=== PATIENT | male | born 1940 | race Caucasian/White ===

== ENCOUNTER 2016-12-10 17:23 | Emergency (ER) | payer MEDICARE, MEDICAID ==
[2016-07-03 11:43] VITALS: BMI 21.0
[~2016-12-10 17:23] MED LIST: ALBUTEROL2.5 MG/3 M INH; ASPIRIN81 MG PO; ATIVAN0.5 MG PO; AUGMENTIN 875-11 TAB PO; BENZONATATE200 MG PO; BROVANA15 MCG/2 M INH; CELEXA20 MG PO; HYDROCHLOROTHIA25 MG PO; HYDROCODONE-APA1 TAB PO; IBUPROFEN400 MG PO; IPRAT-ALBUT 0.5-3 ML UPD; LEVAQUIN500 MG PO; LIPITOR40 MG PO; MOBIC7.5 MG PO; MUCINEX DM ER1 EAC1 PO; NEURONTIN 400400 MG PO; NICODERM C1 PATCH .1 TRANSDERM; PHENERGAN25 M1 PO; RESTORIL15 MG PO; SINGULAIR10 MG PO; STERAPRED 5MG 125 MG PO; SYMBICORT 16010.2 GM INH; TUSSIONEX PENN473 ML PO; ULTRAM50 MG PO; ZANTAC150 MG PO
[2016-12-10 18:38] LABS: BASOPHILS 0.3 % (0.0-2.0); EOSINOPHILS 3.8 % (0-7); HEMATOCRIT 42.4 % (42.0-54.0); HEMOGLOBIN 13.9 g/dL (13.5-17.5); IMMATURE GRANULOCYTES 0.3 % (0-5); LYMPHOCYTES 22.1 % (15-50); MCH 31.4 pg (26.0-34.0); MCHC 32.8 g/dL (31.0-37.0); MCV 95.7 fL (80.0-100.0); MEAN PLATELET VOLUME 9.9 fL (7.4-10.4); MONOCYTES 5.8 % (2-11); NEUTROPHILS 67.7 % (40-80); PLATELET COUNT 149 10x3/uL (130-400); RBC 4.43 10x6/uL (4.20-6.10); RDW 14.8 % (11.5-14.5); WBC 8.7 10x3/uL (4.8-10.8)
[2016-12-10 18:42] LABS: APPEARANCE CLEAR (CLEAR); BILIRUBIN NEGATIVE (NEGATIVE); COLOR YELLOW (YELLOW); GLUCOSE NEGATIVE (NEGATIVE); KETONE NEGATIVE (NEGATIVE); LEUKOCYTE ESTERASE NEGATIVE (NEGATIVE); NITRITE NEGATIVE (NEGATIVE); PROTEIN TRACE mg/dL (NEGATIVE); UROBILINOGEN NORMAL (NORMAL)
[2016-12-10 18:44] LABS: UDS - AMPHET NEGATIVE QUAL (NEGATIVE); UDS - BARB NEGATIVE QUAL (NEGATIVE); UDS - BENZO NEGATIVE QUAL (NEGATIVE); UDS - COCAINE NEGATIVE QUAL (NEGATIVE); UDS - METH NEGATIVE QUAL (NEGATIVE); UDS - OPIATE POSITIVE QUAL (NEGATIVE); UDS - PCP NEGATIVE QUAL (NEGATIVE); UDS - THC NEGATIVE QUAL (NEGATIVE)
[2016-12-10 18:59] LABS: ALBUMIN 3.8 g/dL (3.4-5.0); ANION GAP 13.7 mmol/L (8-16); BILIRUBIN - TOTAL 0.28 mg/dL (0.2-1.3); CALCIUM 8.8 mg/dL (8.5-10.1); CARBON DIOXIDE 26.3 mmol/L (21.0-32.0); CREATININE - SERUM 1.8 mg/dL (0.6-1.3); PROTEIN - SERUM 6.5 g/dL (6.4-8.2)
== END 2016-12-10 20:45 | disposition home or self-care (01) ==
LOC: D.ER 17:23
PROVIDERS: Family Medicine
DX: T14.91 Suicide attempt (principal); X78.1XXA Intentional self-harm by knife, initial encounter; Y93.89 Activity, other specified; Y92.019 Unspecified place in single-family (private) house as the place of occurrence of the external cause; R45.851 Suicidal ideations; J44.9 Chronic obstructive pulmonary disease, unspecified; I95.9 Hypotension, unspecified; F17.200 Nicotine dependence, unspecified, uncomplicated

== ENCOUNTER 2017-01-28 20:56 | Emergency (ER) | payer MEDICARE, MEDICAID ==
[2016-07-03 11:43] VITALS: BMI 21.0
[2017-01-28 21:48] LABS: BASOPHILS 0.2 % (0.0-2.0); EOSINOPHILS 1.3 % (0-7); HEMATOCRIT 37.9 % (42.0-54.0); HEMOGLOBIN 12.4 g/dL (13.5-17.5); IMMATURE GRANULOCYTES 0.3 % (0-5); LYMPHOCYTES 12.6 % (15-50); MCH 31.4 pg (26.0-34.0); MCHC 32.7 g/dL (31.0-37.0); MCV 95.9 fL (80.0-100.0); MEAN PLATELET VOLUME 9.1 fL (7.4-10.4); MONOCYTES 8.9 % (2-11); NEUTROPHILS 76.7 % (40-80); PLATELET COUNT 159 10x3/uL (130-400); RBC 3.95 10x6/uL (4.20-6.10); RDW 14.5 % (11.5-14.5); WBC 14.1 10x3/uL (4.8-10.8)
[2017-01-28 22:07] LABS: ALBUMIN 3.1 g/dL (3.4-5.0); ANION GAP 14.2 mmol/L (8-16); BILIRUBIN - TOTAL 0.35 mg/dL (0.2-1.3); CALCIUM 8.9 mg/dL (8.5-10.1); CARBON DIOXIDE 25.8 mmol/L (21.0-32.0); CREATININE - SERUM 2.1 mg/dL (0.6-1.3); PROTEIN - SERUM 7.2 g/dL (6.4-8.2)
[2017-01-28 22:52] LABS: APPEARANCE CLEAR (CLEAR); BILIRUBIN NEGATIVE (NEGATIVE); COLOR YELLOW (YELLOW); GLUCOSE NEGATIVE (NEGATIVE); KETONE NEGATIVE (NEGATIVE); LEUKOCYTE ESTERASE NEGATIVE (NEGATIVE); NITRITE NEGATIVE (NEGATIVE); PROTEIN NEGATIVE (NEGATIVE); SPECIFIC GRAVITY 1.015 (1.005-1.020); UROBILINOGEN NORMAL (NORMAL)
[2017-01-28 23:01] LABS: UDS - AMPHET NEGATIVE QUAL (NEGATIVE); UDS - BARB NEGATIVE QUAL (NEGATIVE); UDS - BENZO POSITIVE QUAL (NEGATIVE); UDS - COCAINE NEGATIVE QUAL (NEGATIVE); UDS - METH NEGATIVE QUAL (NEGATIVE); UDS - OPIATE POSITIVE QUAL (NEGATIVE); UDS - PCP NEGATIVE QUAL (NEGATIVE); UDS - THC NEGATIVE QUAL (NEGATIVE)
== END 2017-01-28 23:59 | disposition home or self-care (01) ==
LOC: D.ER 20:56
PROVIDERS: Emergency Medicine
DX: R41.82 Altered mental status, unspecified (principal); J96.90 Respiratory failure, unspecified, unspecified whether with hypoxia or hypercapnia; J44.9 Chronic obstructive pulmonary disease, unspecified; F17.200 Nicotine dependence, unspecified, uncomplicated

== ENCOUNTER 2017-02-08 07:13 | Inpatient (IN) | payer MEDICARE, MEDICAID ==
[2017-02-08] VITALS (11 sets, daily range): BP systolic 95–122; BP diastolic 58–67; Ht 190.5 cm; Wt 65.9 kg
[~2017-02-08] VITALS: Ht 190.5 cm; Wt 65.9 kg
--- NOTE | ~2017-02-08 | OP ---
PATIENT NAME: BEE GARNER MEDICAL RECORD: [id number] :40 LOCATION:D.MS [id number] ADMISSION DATE:02/08/17 SURGEON: HANDY MARTINEZ MD DATE OF OPERATION: 02/08/2017 PREOPERATIVE DIAGNOSIS: Left diabetic foot ulcer and osteomyelitis. POSTOPERATIVE DIAGNOSIS: Left diabetic foot ulcer and osteomyelitis. PROCEDURE PERFORMED: Left lower extremity below-knee amputation. SURGEON: Rickey Martinez MD. ANESTHESIA: General. He did have a block for postop pain. CONDITION: He tolerated the procedure well and was transferred to the recovery room in stable condition. INDICATIONS: This is a 76-year-old gentleman well known us. He has had significant problems with diabetic ulcers, foot ulcers in the recent past. He presented to the office yesterday with a very red and inflamed diabetic ulcer, likely with osteomyelitis as well. This had a very foul smell extended up to his ankle. It did not look like there was any good chance that this was going to heal. He has had another nonhealing ulcer on his right foot that has had multiple things done without resolution. We discussed the options and felt it was best to just go ahead and proceed with a BKA. We discussed risks, benefits, and alternatives. He understood and wished to proceed. OPERATIVE REPORT: The patient was taken to the operating room, placed in supine position. General anesthesia was obtained. He did get a block in the preop holding area. In the operating room, his left leg was confirmed to be the correct leg. He was prepped and draped in the normal fashion. Procedure was begun by marking out where I was going to cut the bone, about 4 fingerbreadths below the tibial tubercle then the skin, marking was made. I then went ahead and made the skin cuts for posterior flap. After this was accomplished, I then proceeded to cut the skin down to the bone, got back behind the bone, cut the bone, cut the fibula about 2 cm shorter than the tibia. I then identified the neurovascular bundles. These were clamped off and cut. The leg was removed. I then tied the vessels with a ties, then I proceeded to cut the nerves back specifically the posterior ____ nerve. I then proceeded to irrigate. I then did a [id number] closure followed by a 2-0 Vicryl followed by renetta. He tolerated this well, was awakened and transferred to recovery room in stable condition, having tolerated the procedure well. TRANSINT:[id number] Voice Confirmation ID: [id number] DOCUMENT ID: [id number] HANDY MARTINEZ MD CC: [id number] DICTATION DATE: 02/08/171101 REMOTE RECRUITER: 02/08/172018 ADM IN [place] [address] [place] [address]
[2017-02-08 08:21] LABS: HEMATOCRIT 39.7 % (42.0-54.0); HEMOGLOBIN 12.9 g/dL (13.5-17.5); MCH 31.1 pg (26.0-34.0); MCHC 32.5 g/dL (31.0-37.0); MCV 95.7 fL (80.0-100.0); MEAN PLATELET VOLUME 9.2 fL (7.4-10.4); RBC 4.15 10x6/uL (4.20-6.10); RDW 13.9 % (11.5-14.5); WBC 12.5 10x3/uL (4.8-10.8)
[2017-02-08 08:42] LABS: CALCIUM 9.4 mg/dL (8.5-10.1); CARBON DIOXIDE 27.2 mmol/L (21.0-32.0); CREATININE - SERUM 1.9 mg/dL (0.6-1.3); POTASSIUM - SERUM 4.2 mmol/L (3.5-5.1)
[2017-02-08] MEDS ORDERED: GLUCOTROL 5 MG T5 MG PO (08:44)
[2017-02-08] MEDS ORDERED: TEMAZEPAM30 MG PO (08:44)
[2017-02-08] MEDS ORDERED: ULTRAM50 MG PO (08:45)
[2017-02-08] MEDS ORDERED: ZOFRAN ODT4 MG/UDTAB PO (08:45)
--- NOTE | 2017-02-08 12:05 | NUR ---
RECEIVED TO ROOM 2204 VIA STRETCHER FROM PACU. A/O X3. NO C/O AT THIS TIME. DRESSING TO LEFT BKA DRY AND INTACT. DRESSING TO RIGHT TOES CHANGED. LARGE OPEN WOUND ON TOP OF GREAT TOE, WITHOUT DRAINAGE, SCABBED AREAS NOTED TO SECOND AND THIRD TOES. UNABLE TO PALPATE PEDAL PULSE BUT SKIN IS WARM AND DRY. VSS. DENIES NEEDS.
--- NOTE | 2017-02-08 14:00 | NUR ---
RESTING QUIETLY WITH EYES CLOSED. NO NEEDS NOTED. VSS. O2 DOWN TO 3L AND REMAINS AT 97%.
--- NOTE | 2017-02-08 16:00 | NUR ---
CONTINUES TO REST WITH EYES CLOSED. VSS. O2 DOWN TO 2L AND SATS AT 94%. WILL MONITOR.
--- NOTE | 2017-02-08 18:10 | NUR ---
ATE ALL OF SUPPER TRAY. STATED IT WAS VERY GOOD. REQUESTED AND GIVEN 2 HYDROCODONE PO FOR C/O LEFT BKA. WILL MONITOR.
--- NOTE | 2017-02-08 19:55 | NUR ---
PT RECEIVED LYING IN BED AAOX3. IV NOTED TO RIGHT FOREARM INFUSING 1/2 NS @ 75 CC/HR. PATENT. DRESSING CDI. PT RATES PAIN 9/10 AT THIS TIME. HEART RRR. SKIN TEAR NOTED TO LEFT ELBOW WITH DRESSING. CDI. LUNG SOUNDS CLEAR BILATERALLY. PT ON 2 L O2 VIA NC. BOWEL SOUNDS ACTIVE X4 QUADRENTS. ABDOMEN SOFT NON-DISTENDED. BKA TO LEFT EXTREMITY. DRESSING CDI. DRESSING NOTED TO RIGHT GREAT TOE. CDI. RIGHT PEDAL PULSE NON-PALPABALE. PT DENIES NEEDS AT THIS TIME. BED LOW. PHONE AND CALL LIGHT IN REACH. SRX2.
--- NOTE | 2017-02-08 21:53 | NUR ---
PM MEDS GIVEN AT THIS TIME. PT REQUESTS MEDICATION FOR PAIN 06/06 AT THIS TIME. DENIES OTHER NEEDS. BED LOW. PHONE AND CALL LIGHT IN REACH. SRX2.
--- NOTE | 2017-02-08 22:31 | NUR ---
ADMINISTERED NORCO PO PER ORDERS AT THIS TIME FOR PAIN PT RATES 06/06. PT DENIES OTHER NEEDS. BED LOW. PHONE AND CALL LIGHT IN REACH. SRX2.
--- NOTE | 2017-02-08 23:02 | NUR ---
PT VOIDED APPROX 250 CC LETICIA URINE IN URINAL AT THIS TIME. PT DENIES NEEDS. BED LOW. PHONE AND CALL LIGHT IN REACH. SRX2.
--- NOTE | 2017-02-08 23:22 | NUR ---
REASSESSED PTS PAIN AT THIS TIME. RATES PAIN 06/06. PT DENIES NEEDS. BED LOW. PHONE AND CALL LIGHT IN REACH. SRX2.
--- NOTE | 2017-02-09 01:18 | NUR ---
PT RESTING QUIETLY AT THIS TIME WITH EYES CLOSED. RESPIRATIONS EVEN, NON-LABORED. NO ACUTE DISTRESS NOTED AT THIS TIME. BED LOW. PHONE AND CALL LIGHT IN REACH. SRX2.
--- NOTE | 2017-02-09 02:43 | NUR ---
PT C/O PAIN 06/06 AT THIS TIME. ADMINISTERED NORCO PO PER ORDERS AT THIS TIME. PT DENIES OTHER NEEDS. BED LOW. PHONE AND CALL LIGHT IN REACH. SRX2.
--- NOTE | 2017-02-09 03:05 | NUR ---
REASSESSED PTS PAIN AT THIS TIME. RATES PAIN 06/06. PT DENIES NEEDS AT THIS TIME. BED LOW. PHONE AND CALL LIGHT IN REACH. SRX2.
--- NOTE | 2017-02-09 03:57 | NUR ---
PT RESTING QUIETLY IN BED AT THIS TIME. DENIES NEEDS. BED LOW. PHONE AND CALL LIGHT IN REACH. SRX2.
[2017-02-09 05:23] VITALS: BP 97/52
--- NOTE | 2017-02-09 06:41 | NUR ---
AM MEDS GIVEN AT THIS TIME. ADMINISTERED NORCO PO PER ORDERS AT THIS TIME FOR PAIN PT RATES 06/06. DENIES OTHER NEEDS. BED LOW. PHONE AND CALL LIGHT IN REACH. SRX2.
--- NOTE | 2017-02-09 07:20 | NUR ---
PT REC'D FROM [facility]. RESTING IN BED WATCHING TV. AAOX4. RATING CURRENT PAIN IN LLE 08/06. PT RECENTLY HAD PAIN MEDICATION, SO I EXPLAINED TO HIM THAT I WOULD GIVE IT AGAIN WHEN IT WAS SAFE TO. PT STATES HE UNDERSTANDS. DRESSING TO LLE CDI. DRESSING TO R FOOT HAS SOME OLD DRIED BLOOD ON GREAT TOE. WILL CHANGE. BED LOW, CALL LIGHT IN REACH, DENIES NEEDS. CPOC.
[2017-02-09 09:05] VITALS: BP 125/61
[2017-02-09] MEDS ORDERED: PERCOCET 10/3251 TA1 PO (09:21)
--- NOTE | 2017-02-09 11:30 | NUR ---
MORNING MEDS PASSED AT THIS TIME. PRN NORCO ADMINISTERED PER PT C/O 08/06 LLE PAIN. WILL REASSESS. SPOKE WITH MRS. VILLAGRAN, PT CAREGIVER AT HOME, AND PROVIDED UPDATE ON DC ORDERS AND CURRENT PT CONDITION. BED LOW, CALL LIGHT IN REACH, DENEIS NEEDS. CPOC.
--- NOTE | 2017-02-09 11:40 | NUR ---
PATIENT IN LOW BROWER POSITION. RESPIRATIONS EVEN AND UNLABORED. FAMILY AND NURSE AIDBORIS AT BEDSIDE. SIDE RAILS UP X2. BED IN LOW POSITION. CALL LIGHT IN REACH.
--- NOTE | 2017-02-09 16:32 | NUR ---
DC INSTRUCTIONS GONE OVER WITH PT AND CAREGIVER. IV TO R WRIST DC'D WITH CATH INTACT. DC PAPERS SENT WITH CAREGIVER. AMBULANCE CALLED FOR [facility]. BED LOW, CALL LIGHT IN REACH, DENIES NEEDS. AWAITING AMBULANCE ARRIVAL.
== END 2017-02-09 16:34 | disposition home health service (06) | DRG 41 ==
LOC: D.MS 07:13 → D.SDCHOLD 07:13 → D.MS 11:19
PROVIDERS: Anesthesiology; ADMIT Orthopaedic Surgery Sports Medicine
PROC: 0Y6D0Z2 Detachment at Left Upper Leg, Mid, Open Approach (ICD-10-PCS; principal; 2017-02-08 08:00)
DX: E11.40 Type 2 diabetes mellitus with diabetic neuropathy, unspecified (principal); M86.9 Osteomyelitis, unspecified; F17.203 Nicotine dependence unspecified, with withdrawal; E11.621 Type 2 diabetes mellitus with foot ulcer; L97.529 Non-pressure chronic ulcer of other part of left foot with unspecified severity; E11.69 Type 2 diabetes mellitus with other specified complication; K21.9 Gastro-esophageal reflux disease without esophagitis; I10 Essential (primary) hypertension; J44.9 Chronic obstructive pulmonary disease, unspecified; M19.90 Unspecified osteoarthritis, unspecified site; Z79.84 Long term (current) use of oral hypoglycemic drugs

== ENCOUNTER 2018-02-03 10:14 | Emergency (ER) | payer MEDICARE, MEDICAID ==
[2017-02-08 12:07] VITALS: BMI 18.1
[~2018-02-03 10:14] MED LIST changes: +GLUCOTROL 5 MG T5 MG PO; +PERCOCET 10/3251 TA1 PO; +TEMAZEPAM30 MG PO; +ZOFRAN ODT4 MG/UDTAB PO
== END 2018-02-03 12:59 | disposition home or self-care (01) ==
LOC: D.ER 10:14
DX: R07.89 Other chest pain (principal); E11.9 Type 2 diabetes mellitus without complications; R22.41 Localized swelling, mass and lump, right lower limb; W20.8XXA Other cause of strike by thrown, projected or falling object, initial encounter; Y93.89 Activity, other specified; Y92.019 Unspecified place in single-family (private) house as the place of occurrence of the external cause; F17.200 Nicotine dependence, unspecified, uncomplicated

== ENCOUNTER 2018-05-01 12:30 | Observation (INO) | payer MEDICARE, MEDICAID ==
[~2018-05-01] VITALS: Ht 190.5 cm; Wt 70.0 kg
[2018-05-01 13:23] LABS: BASOPHILS 0.2 % (0-2); EOSINOPHILS 1.1 % (0-7); HEMATOCRIT 33.5 % (42.0-54.0); HEMOGLOBIN 10.8 g/dL (13.5-17.5); IMMATURE GRANULOCYTES 0.3 % (0-5); LYMPHOCYTES 6.8 % (15-50); MCH 31.3 pg (26.0-34.0); MCHC 32.2 g/dL (31.0-37.0); MCV 97.1 fL (80.0-100.0); MEAN PLATELET VOLUME 8.7 fL (7.4-10.4); MONOCYTES 7.3 % (2-11); NEUTROPHILS 84.3 % (40-80); RBC 3.45 10x6/uL (4.20-6.10); RDW 14.3 % (11.5-14.5); WBC 9.3 10x3/uL (4.8-10.8)
[2018-05-01 13:24] LABS: PLATELET COUNT 185 10x3/uL (130-400)
[2018-05-01 13:36] LABS: ALKALINE PHOSPHATASE 99 U/L (46-116); ALT (SGPT) 12 U/L (10-68); BILIRUBIN - TOTAL 0.49 mg/dL (0.2-1.3); CALC OSMOLALITY 280 mosm/kg (275-300); CALCIUM 9.1 mg/dL (8.5-10.1); CARBON DIOXIDE 25.1 mmol/L (21.0-32.0); CHLORIDE - SERUM 105 mmol/L (98-107); CREATININE - SERUM 2.3 mg/dL (0.6-1.3); GLUCOSE 92 mg/dL (74-106); POTASSIUM - SERUM 4.6 mmol/L (3.5-5.1); SODIUM 138 mmol/L (136-145); UREA NITROGEN 26 mg/dL (7-18); eGFR NON AFRICAN AMERICAN 29 mL/min (90-120)
[2018-05-01 13:51] LABS: CKMB 1.2 U/L (0.0-3.6); CREATINE KINASE 44 UL (21-232)
[2018-05-01 13:53] LABS: TROPONIN-I < 0.017 ng/mL (0.000-0.060)
[2018-05-01 14:00] VITALS: BP 131/60
[2018-05-01 14:04] LABS: APPEARANCE HAZY (CLEAR); BILIRUBIN NEGATIVE (NEGATIVE); COLOR YELLOW (YELLOW); GLUCOSE NEGATIVE (NEGATIVE); KETONE NEGATIVE (NEGATIVE); NITRITE POSITIVE (NEGATIVE); PROTEIN NEGATIVE (NEGATIVE); UROBILINOGEN NORMAL (NORMAL)
[2018-05-01 14:05] LABS: RED CELLS - URINE >50 /hpf (0-5); WHITE CELLS - URINE >50 /hpf (0-5)
[2018-05-01 14:06] LABS: BACTERIA MODERATE /hpf (NONE SEEN); EPITHELIAL CELLS 0-5 /hpf (0-5)
[2018-05-01 14:08] LABS: UDS - AMPHET NEGATIVE QUAL (NEGATIVE); UDS - BARB NEGATIVE QUAL (NEGATIVE); UDS - BENZO POSITIVE QUAL (NEGATIVE); UDS - COCAINE NEGATIVE QUAL (NEGATIVE); UDS - OPIATE POSITIVE QUAL (NEGATIVE); UDS - PCP NEGATIVE QUAL (NEGATIVE); UDS - THC NEGATIVE QUAL (NEGATIVE)
[2018-05-01 14:23] LABS: APTT 33.2 SECONDS (22.8-39.4)
[2018-05-01 14:28] LABS: INR 1.16 (0.85-1.17); PROTIME 14.4 SECONDS (11.6-15.0)
[2018-05-01 15:00] VITALS: BP 124/59
[2018-05-01 15:33] LABS: CREATINE KINASE 50 UL (21-232)
[2018-05-01 15:34] LABS: TROPONIN-I < 0.017 ng/mL (0.000-0.060)
[2018-05-01 17:49] VITALS: BP 126/61
[2018-05-01 18:00] VITALS: BP 129/57
[2018-05-01 22:29] LABS: CKMB 1.3 U/L (0.0-3.6); CREATINE KINASE 52 UL (21-232); TROPONIN-I < 0.017 ng/mL (0.000-0.060)
[2018-05-01 23:56] VITALS: Ht 190.5 cm; Wt 70.0 kg
[2018-05-02 01:00] VITALS: BP 122/65
[2018-05-02 05:59] VITALS: BP 140/63
[2018-05-02 06:13] LABS: CREATINE KINASE 52 UL (21-232)
[2018-05-02 06:20] LABS: TROPONIN-I < 0.017 ng/mL (0.000-0.060)
[2018-05-02 07:53] VITALS: BP 131/67
[2018-05-02] MEDS ORDERED: LEVAQUIN500 MG PO (10:58)
[2018-05-02 12:02] VITALS: BP 143/77
== END 2018-05-02 15:45 | disposition home health service (06) ==
LOC: D.ER 12:30 → D.EDHOLD 14:48 → OBSVTIME 14:48 → D.M2 14:48
PROVIDERS: Family Medicine
DX: S00.03XA Contusion of scalp, initial encounter (principal); W05.0XXA Fall from non-moving wheelchair, initial encounter; Y92.512 Supermarket, store or market as the place of occurrence of the external cause; R40.2363 Coma scale, best motor response, obeys commands, at hospital admission; N17.9 Acute kidney failure, unspecified; R40.2143 Coma scale, eyes open, spontaneous, at hospital admission; R40.2243 Coma scale, best verbal response, confused conversation, at hospital admission; M48.02 Spinal stenosis, cervical region; F17.290 Nicotine dependence, other tobacco product, uncomplicated; K21.9 Gastro-esophageal reflux disease without esophagitis; E11.9 Type 2 diabetes mellitus without complications; J44.9 Chronic obstructive pulmonary disease, unspecified; F32.9 Major depressive disorder, single episode, unspecified; I10 Essential (primary) hypertension; N39.0 Urinary tract infection, site not specified

== ENCOUNTER 2018-06-21 19:30 | Inpatient (IN) | payer MEDICARE, MEDICAID ==
[~2018-06-21] VITALS: Ht 190.5 cm; Wt 95.5 kg
[2018-06-21 20:15] LABS: BASOPHILS 0.2 % (0-2); EOSINOPHILS 3.1 % (0-7); HEMATOCRIT 40.4 % (42.0-54.0); HEMOGLOBIN 13.1 g/dL (13.5-17.5); IMMATURE GRANULOCYTES 0.2 % (0-5); LYMPHOCYTES 9.8 % (15-50); MCH 31.2 pg (26.0-34.0); MCHC 32.4 g/dL (31.0-37.0); MCV 96.2 fL (80.0-100.0); MEAN PLATELET VOLUME 8.9 fL (7.4-10.4); MONOCYTES 5.1 % (2-11); NEUTROPHILS 81.6 % (40-80); PLATELET COUNT 174 10x3/uL (130-400); RDW 13.9 % (11.5-14.5)
[2018-06-21 20:20] LABS: APTT 29.8 SECONDS (22.8-39.4); INR 1.06 (0.85-1.17); PROTIME 13.4 SECONDS (11.6-15.0)
[2018-06-21 20:21] LABS: D-DIMER-QUANTITATIVE 1.96 ug/mLFEU (0.20-0.54)
[2018-06-21 20:35] LABS: ALBUMIN 3.7 g/dL (3.4-5.0); ALKALINE PHOSPHATASE 109 U/L (46-116); ALT (SGPT) 8 U/L (10-68); BILIRUBIN - TOTAL 0.26 mg/dL (0.2-1.3); CALC OSMOLALITY 277 mosm/kg (275-300); CALCIUM 8.6 mg/dL (8.5-10.1); CARBON DIOXIDE 23.6 mmol/L (21.0-32.0); CHLORIDE - SERUM 103 mmol/L (98-107); CKMB 4.1 U/L (0.0-3.6); CREATINE KINASE 96 UL (21-232); CREATININE - SERUM 3.1 mg/dL (0.6-1.3); GLUCOSE 130 mg/dL (74-106); PROTEIN - SERUM 7.4 g/dL (6.4-8.2); SODIUM 134 mmol/L (136-145); UREA NITROGEN 36 mg/dL (7-18); eGFR NON AFRICAN AMERICAN 21 mL/min (90-120)
[2018-06-21 20:36] LABS: POTASSIUM - SERUM 6.5 mmol/L (3.5-5.1); TROPONIN-I < 0.017 ng/mL (0.000-0.060)
[2018-06-21 21:36] VITALS: BP 122/66
[2018-06-21 22:11] LABS: UDS - AMPHET NEGATIVE QUAL (NEGATIVE); UDS - BARB NEGATIVE QUAL (NEGATIVE); UDS - BENZO POSITIVE QUAL (NEGATIVE); UDS - COCAINE NEGATIVE QUAL (NEGATIVE); UDS - OPIATE POSITIVE QUAL (NEGATIVE); UDS - PCP NEGATIVE QUAL (NEGATIVE); UDS - THC NEGATIVE QUAL (NEGATIVE)
[2018-06-21 22:25] LABS: APPEARANCE CLEAR (CLEAR); COLOR YELLOW (YELLOW); SPECIFIC GRAVITY 1.015 (1.005-1.020)
[2018-06-21 22:26] LABS: BILIRUBIN 1+ (NEGATIVE); GLUCOSE NEGATIVE (NEGATIVE); KETONE NEGATIVE (NEGATIVE); NITRITE NEGATIVE (NEGATIVE); PROTEIN NEGATIVE (NEGATIVE); UROBILINOGEN NORMAL (NORMAL)
[2018-06-21 22:29] LABS: BACTERIA FEW /hpf (NONE SEEN); RED CELLS - URINE 0-5 /hpf (0-5)
[2018-06-21 22:56] VITALS: BP 123/62
[2018-06-22] VITALS (7 sets, daily range): BP systolic 100–131; BP diastolic 50–79; Ht 190.5 cm; Wt 95.5 kg
[2018-06-22 06:21] LABS: BASOPHILS 0.2 % (0-2); HEMATOCRIT 38.4 % (42.0-54.0); HEMOGLOBIN 12.4 g/dL (13.5-17.5); IMMATURE GRANULOCYTES 0.3 % (0-5); LYMPHOCYTES 21.3 % (15-50); MCH 31.2 pg (26.0-34.0); MCHC 32.3 g/dL (31.0-37.0); MCV 96.7 fL (80.0-100.0); MEAN PLATELET VOLUME 9.3 fL (7.4-10.4); MONOCYTES 6.7 % (2-11); NEUTROPHILS 67.5 % (40-80); PLATELET COUNT 173 10x3/uL (130-400); RBC 3.97 10x6/uL (4.20-6.10); WBC 10.6 10x3/uL (4.8-10.8)
[2018-06-22 06:52] LABS: ALBUMIN 3.3 g/dL (3.4-5.0); BILIRUBIN - TOTAL 0.2 mg/dL (0.2-1.3); CALCIUM 8.5 mg/dL (8.5-10.1); CARBON DIOXIDE 21.6 mmol/L (21.0-32.0); CREATININE - SERUM 3.2 mg/dL (0.6-1.3); PROTEIN - SERUM 6.6 g/dL (6.4-8.2)
[2018-06-22 06:53] LABS: ANION GAP 13.7 mmol/L (8-16); POTASSIUM - SERUM 5.3 mmol/L (3.5-5.1)
[2018-06-23] VITALS: BP 170/71
[2018-06-23 04:00] VITALS: BP 134/64
[2018-06-23 04:33] LABS: BASOPHILS 0.2 % (0-2); HEMATOCRIT 38.6 % (42.0-54.0); HEMOGLOBIN 12.8 g/dL (13.5-17.5); IMMATURE GRANULOCYTES 0.2 % (0-5); LYMPHOCYTES 14.9 % (15-50); MCH 31.5 pg (26.0-34.0); MCHC 33.2 g/dL (31.0-37.0); MCV 95.1 fL (80.0-100.0); MEAN PLATELET VOLUME 9.2 fL (7.4-10.4); MONOCYTES 6.7 % (2-11); PLATELET COUNT 179 10x3/uL (130-400); RBC 4.06 10x6/uL (4.20-6.10); WBC 11.1 10x3/uL (4.8-10.8)
[2018-06-23 04:57] LABS: ALBUMIN 3.3 g/dL (3.4-5.0); ANION GAP 13.5 mmol/L (8-16); BILIRUBIN - TOTAL 0.24 mg/dL (0.2-1.3); CALCIUM 8.7 mg/dL (8.5-10.1); CARBON DIOXIDE 21.4 mmol/L (21.0-32.0); CREATININE - SERUM 2.5 mg/dL (0.6-1.3); POTASSIUM - SERUM 5.9 mmol/L (3.5-5.1); PROTEIN - SERUM 6.8 g/dL (6.4-8.2)
[2018-06-23 07:57] VITALS: BP 137/65
[2018-06-23 08:00] VITALS: BP 149/80
[2018-06-23 11:01] VITALS: BP 154/65
[2018-06-24 04:33] VITALS: BP 158/77
[2018-06-24 05:27] LABS: BASOPHILS 0.2 % (0-2); EOSINOPHILS 1.4 % (0-7); HEMATOCRIT 41.4 % (42.0-54.0); IMMATURE GRANULOCYTES 0.3 % (0-5); LYMPHOCYTES 12.4 % (15-50); MCH 31.5 pg (26.0-34.0); MCHC 33.8 g/dL (31.0-37.0); MEAN PLATELET VOLUME 9.2 fL (7.4-10.4); MONOCYTES 6.9 % (2-11); NEUTROPHILS 78.8 % (40-80); PLATELET COUNT 190 10x3/uL (130-400); RBC 4.45 10x6/uL (4.20-6.10); RDW 13.5 % (11.5-14.5); WBC 11.8 10x3/uL (4.8-10.8)
[2018-06-24 05:53] LABS: ALBUMIN 3.5 g/dL (3.4-5.0); BILIRUBIN - TOTAL 0.4 mg/dL (0.2-1.3); CARBON DIOXIDE 23.8 mmol/L (21.0-32.0); MAGNESIUM - SERUM 1.8 mg/dL (1.8-2.4); POTASSIUM - SERUM 5.8 mmol/L (3.5-5.1); PROTEIN - SERUM 7.4 g/dL (6.4-8.2)
[2018-06-24 07:54] VITALS: BP 172/94
[2018-06-24 11:36] VITALS: BP 166/88
[2018-06-24 15:28] VITALS: BP 157/77
[2018-06-24 20:00] VITALS: BP 173/85
[2018-06-25 04:00] VITALS: BP 182/88
[2018-06-25 07:14] LABS: ALBUMIN 3.5 g/dL (3.4-5.0); ANION GAP 11.8 mmol/L (8-16); BASOPHILS 0.1 % (0-2); BILIRUBIN - TOTAL 0.33 mg/dL (0.2-1.3); CALCIUM 8.7 mg/dL (8.5-10.1); CARBON DIOXIDE 27.2 mmol/L (21.0-32.0); CREATININE - SERUM 1.8 mg/dL (0.6-1.3); EOSINOPHILS 0 % (0-7); HEMATOCRIT 39.8 % (42.0-54.0); HEMOGLOBIN 13.7 g/dL (13.5-17.5); IMMATURE GRANULOCYTES 0.3 % (0-5); LYMPHOCYTES 7.9 % (15-50); MAGNESIUM - SERUM 1.7 mg/dL (1.8-2.4); MCH 31.4 pg (26.0-34.0); MCHC 34.4 g/dL (31.0-37.0); MCV 91.1 fL (80.0-100.0); MEAN PLATELET VOLUME 9.3 fL (7.4-10.4); MONOCYTES 4.6 % (2-11); NEUTROPHILS 87.1 % (40-80); PLATELET COUNT 170 10x3/uL (130-400); PROTEIN - SERUM 6.9 g/dL (6.4-8.2); RBC 4.37 10x6/uL (4.20-6.10); RDW 13.3 % (11.5-14.5); WBC 13.2 10x3/uL (4.8-10.8)
[2018-06-25 08:51] VITALS: BP 161/74
[2018-06-25 11:32] VITALS: BP 143/70
[2018-06-25 16:03] VITALS: BP 146/76
[2018-06-25 20:00] VITALS: BP 138/69
[2018-06-26 04:00] VITALS: BP 146/70
[2018-06-26 06:58] LABS: BASOPHILS 0.2 % (0-2); HEMATOCRIT 38.1 % (42.0-54.0); HEMOGLOBIN 12.9 g/dL (13.5-17.5); IMMATURE GRANULOCYTES 0.4 % (0-5); LYMPHOCYTES 15.1 % (15-50); MCH 31.1 pg (26.0-34.0); MCHC 33.9 g/dL (31.0-37.0); MCV 91.8 fL (80.0-100.0); MEAN PLATELET VOLUME 8.9 fL (7.4-10.4); NEUTROPHILS 76.3 % (40-80); PLATELET COUNT 186 10x3/uL (130-400); RBC 4.15 10x6/uL (4.20-6.10); RDW 13.5 % (11.5-14.5)
[2018-06-26 07:14] LABS: ALBUMIN 3.3 g/dL (3.4-5.0); ANION GAP 14.2 mmol/L (8-16); BILIRUBIN - TOTAL 0.35 mg/dL (0.2-1.3); CALCIUM 8.5 mg/dL (8.5-10.1); CARBON DIOXIDE 23.1 mmol/L (21.0-32.0); CREATININE - SERUM 1.7 mg/dL (0.6-1.3); MAGNESIUM - SERUM 1.7 mg/dL (1.8-2.4); POTASSIUM - SERUM 4.3 mmol/L (3.5-5.1); PROTEIN - SERUM 6.6 g/dL (6.4-8.2)
[2018-06-26 08:13] VITALS: BP 151/69
[2018-06-26 11:52] VITALS: BP 147/69
== END 2018-06-26 14:07 | disposition home health service (06) | DRG 442 ==
LOC: D.ER 19:30 → D.EDHOLD 23:22 → D.M2 23:22
PROVIDERS: Family Medicine
DX: K72.00 Acute and subacute hepatic failure without coma (principal); N17.9 Acute kidney failure, unspecified; F17.213 Nicotine dependence, cigarettes, with withdrawal; E72.20 Disorder of urea cycle metabolism, unspecified; J90 Pleural effusion, not elsewhere classified; E87.5 Hyperkalemia; G89.29 Other chronic pain; M54.9 Dorsalgia, unspecified; J44.9 Chronic obstructive pulmonary disease, unspecified; W05.0XXA Fall from non-moving wheelchair, initial encounter; I10 Essential (primary) hypertension; K21.9 Gastro-esophageal reflux disease without esophagitis; K76.0 Fatty (change of) liver, not elsewhere classified; N28.1 Cyst of kidney, acquired

== ENCOUNTER 2018-09-24 17:32 | Emergency (ER) | payer MEDICARE, MEDICAID ==
[~2018-09-24] VITALS: Ht 190.5 cm; Wt 75.0 kg
[2018-09-24 17:41] VITALS: Ht 190.5 cm; Wt 75.0 kg
[2018-09-24 19:01] LABS: BASOPHILS 0.2 % (0-2); EOSINOPHILS 1.1 % (0-7); HEMATOCRIT 35.4 % (42.0-54.0); HEMOGLOBIN 11.2 g/dL (13.5-17.5); IMMATURE GRANULOCYTES 0.5 % (0-5); LYMPHOCYTES 2.7 % (15-50); MCH 30.5 pg (26.0-34.0); MCHC 31.6 g/dL (31.0-37.0); MCV 96.5 fL (80.0-100.0); MEAN PLATELET VOLUME 8.9 fL (7.4-10.4); MONOCYTES 3.3 % (2-11); NEUTROPHILS 92.2 % (40-80); PLATELET COUNT 200 10x3/uL (130-400); RBC 3.67 10x6/uL (4.20-6.10); RDW 14.4 % (11.5-14.5); WBC 12.7 10x3/uL (4.8-10.8)
[2018-09-24 19:37] LABS: ALBUMIN 3.2 g/dL (3.4-5.0); ANION GAP 11.3 mmol/L (8-16); BILIRUBIN - TOTAL 0.22 mg/dL (0.2-1.3); CALCIUM 8.7 mg/dL (8.5-10.1); CARBON DIOXIDE 25.5 mmol/L (21.0-32.0); CREATININE - SERUM 1.9 mg/dL (0.6-1.3); POTASSIUM - SERUM 3.8 mmol/L (3.5-5.1); PROTEIN - SERUM 7.1 g/dL (6.4-8.2)
[2018-09-24 19:50] LABS: APPEARANCE HAZY (CLEAR); BILIRUBIN NEGATIVE (NEGATIVE); COLOR YELLOW (YELLOW); GLUCOSE NEGATIVE (NEGATIVE); KETONE NEGATIVE (NEGATIVE); NITRITE POSITIVE (NEGATIVE); PROTEIN TRACE mg/dL (NEGATIVE); UROBILINOGEN NORMAL (NORMAL)
[2018-09-24 19:54] LABS: BACTERIA MANY /hpf (NONE SEEN); EPITHELIAL CELLS 0-5 /hpf (0-5)
[2018-09-24] MEDS ORDERED: MACROBID100 MG PO (20:37)
[2018-09-24] MEDS ORDERED: KEFLEX500 MG PO (20:37)
[2018-09-24 22:15] VITALS: BP 106/52
== END 2018-09-24 22:16 | disposition other institution (70) ==
LOC: D.ER 17:32
PROVIDERS: Emergency Medicine
DX: N30.90 Cystitis, unspecified without hematuria (principal); R50.9 Fever, unspecified; E11.9 Type 2 diabetes mellitus without complications; J44.9 Chronic obstructive pulmonary disease, unspecified; Z89.512 Acquired absence of left leg below knee; F17.200 Nicotine dependence, unspecified, uncomplicated

== ENCOUNTER 2019-02-04 19:12 | Emergency (ER) | payer MEDICARE, MEDICAID ==
[~2019-02-04] VITALS: Ht 190.5 cm; Wt 72.7 kg
[~2019-02-04 19:12] MED LIST changes: +KEFLEX500 MG PO; +MACROBID100 MG PO
[2019-02-04 19:20] VITALS: Ht 190.5 cm; Wt 72.7 kg
[2019-02-04] MEDS ORDERED: BACLOFEN20 M1 PO (20:40)
[2019-02-04] MEDS ORDERED: VOLTAREN75 MG PO (20:40)
[2019-02-04 22:40] VITALS: BP 132/74
== END 2019-02-04 22:40 | disposition home or self-care (01) ==
LOC: D.ER 19:12
DX: M25.552 Pain in left hip (principal); W05.0XXA Fall from non-moving wheelchair, initial encounter; Y93.89 Activity, other specified; Y92.89 Other specified places as the place of occurrence of the external cause

== ENCOUNTER 2019-02-08 19:17 | Inpatient (IN) | payer MEDICARE, MEDICAID ==
[~2019-02-08] VITALS: Ht 190.5 cm; Wt 78.9 kg
[~2019-02-08 19:17] MED LIST changes: +BACLOFEN20 M1 PO; +VOLTAREN75 MG PO
[2019-02-08 20:08] LABS: BASOPHILS 0.1 % (0-2); EOSINOPHILS 0.5 % (0-7); HEMATOCRIT 35.5 % (42.0-54.0); HEMOGLOBIN 11.5 g/dL (13.5-17.5); IMMATURE GRANULOCYTES 0.3 % (0-5); LYMPHOCYTES 11.4 % (15-50); MCHC 32.4 g/dL (31.0-37.0); MCV 92.7 fL (80.0-100.0); MEAN PLATELET VOLUME 9.2 fL (7.4-10.4); MONOCYTES 5.9 % (2-11); NEUTROPHILS 81.8 % (40-80); PLATELET COUNT 176 10x3/uL (130-400); RBC 3.83 10x6/uL (4.20-6.10); RDW 14.4 % (11.5-14.5); WBC 14.2 10x3/uL (4.8-10.8)
[2019-02-08 20:14] LABS: KETONE - SERUM NEGATIVE (NEGATIVE)
[2019-02-08 20:17] LABS: ALBUMIN 2.9 g/dL (3.4-5.0); ALKALINE PHOSPHATASE 114 U/L (46-116); ALT (SGPT) 8 U/L (10-68); CALC OSMOLALITY 280 mosm/kg (275-300); CALCIUM 8.3 mg/dL (8.5-10.1); CARBON DIOXIDE 24.8 mmol/L (21.0-32.0); CHLORIDE - SERUM 104 mmol/L (98-107); POTASSIUM - SERUM 4.4 mmol/L (3.5-5.1); PROTEIN - SERUM 6.6 g/dL (6.4-8.2); SODIUM 137 mmol/L (136-145); UREA NITROGEN 35 mg/dL (7-18); eGFR NON AFRICAN AMERICAN 22 mL/min (90-120)
[2019-02-08 20:18] LABS: GLUCOSE 84 mg/dL (74-106)
[2019-02-08 20:34] LABS: CREATINE KINASE 83 UL (21-232); LIPASE 120 U/L (73-393); MAGNESIUM - SERUM 2.2 mg/dL (1.8-2.4); PRO BNP 1230 pg/mL (0-450); THYROID STIMULATING HORMONE 1.08 uIU/mL (0.36-3.74)
[2019-02-08 20:35] LABS: TROPONIN-I 0.275 ng/mL (0.000-0.060)
[2019-02-08 21:03] VITALS: BP 121/49
[2019-02-08 21:08] LABS: APPEARANCE CLEAR (CLEAR); BILIRUBIN 1+ (NEGATIVE); COLOR DK YELLOW (YELLOW); GLUCOSE NEGATIVE (NEGATIVE); KETONE NEGATIVE (NEGATIVE); NITRITE NEGATIVE (NEGATIVE); PROTEIN TRACE mg/dL (NEGATIVE); UROBILINOGEN NORMAL (NORMAL)
[2019-02-08 21:15] LABS: UDS - AMPHET NEGATIVE QUAL (NEGATIVE); UDS - BARB NEGATIVE QUAL (NEGATIVE); UDS - BENZO POSITIVE QUAL (NEGATIVE); UDS - COCAINE NEGATIVE QUAL (NEGATIVE); UDS - OPIATE POSITIVE QUAL (NEGATIVE); UDS - PCP NEGATIVE QUAL (NEGATIVE); UDS - THC NEGATIVE QUAL (NEGATIVE)
[2019-02-08 22:55] VITALS: BP 119/62; BMI 19.4
[2019-02-08 23:26] VITALS: BP 119/62
[2019-02-09 05:49] VITALS: BP 120/527
[2019-02-09 09:01] VITALS: BP 101/56
[2019-02-09 11:53] VITALS: BP 101/53
[2019-02-09 12:26] LABS: BASOPHILS 0.2 % (0-2); EOSINOPHILS 1.5 % (0-7); HEMATOCRIT 33.2 % (42.0-54.0); HEMOGLOBIN 10.8 g/dL (13.5-17.5); IMMATURE GRANULOCYTES 0.3 % (0-5); LYMPHOCYTES 12.3 % (15-50); MCH 30.2 pg (26.0-34.0); MCHC 32.5 g/dL (31.0-37.0); MCV 92.7 fL (80.0-100.0); MEAN PLATELET VOLUME 9.8 fL (7.4-10.4); MONOCYTES 7.4 % (2-11); NEUTROPHILS 78.3 % (40-80); PLATELET COUNT 182 10x3/uL (130-400); RBC 3.58 10x6/uL (4.20-6.10); RDW 14.5 % (11.5-14.5); WBC 11.6 10x3/uL (4.8-10.8)
[2019-02-09 12:36] LABS: ALBUMIN 2.9 g/dL (3.4-5.0); BILIRUBIN - TOTAL 0.36 mg/dL (0.2-1.3); CALCIUM 8.2 mg/dL (8.5-10.1); CARBON DIOXIDE 20.8 mmol/L (21.0-32.0); CREATININE - SERUM 2.7 mg/dL (0.6-1.3); POTASSIUM - SERUM 4.8 mmol/L (3.5-5.1); PROTEIN - SERUM 5.8 g/dL (6.4-8.2)
[2019-02-09 13:14] VITALS: Ht 190.5 cm; Wt 78.9 kg
[2019-02-09 18:09] VITALS: BP 116/61
[2019-02-09 20:32] VITALS: BP 121/76
[2019-02-10 06:08] VITALS: BP 151/67
[2019-02-10 06:15] LABS: BASOPHILS 0.1 % (0-2); EOSINOPHILS 1.1 % (0-7); HEMATOCRIT 32.5 % (42.0-54.0); HEMOGLOBIN 10.6 g/dL (13.5-17.5); IMMATURE GRANULOCYTES 0.2 % (0-5); MCH 29.4 pg (26.0-34.0); MCHC 32.6 g/dL (31.0-37.0); MEAN PLATELET VOLUME 9.6 fL (7.4-10.4); MONOCYTES 8.4 % (2-11); NEUTROPHILS 78.2 % (40-80); PLATELET COUNT 186 10x3/uL (130-400); RDW 14.3 % (11.5-14.5); WBC 9.4 10x3/uL (4.8-10.8)
[2019-02-10 06:33] LABS: ALBUMIN 2.6 g/dL (3.4-5.0); BILIRUBIN - TOTAL 0.3 mg/dL (0.2-1.3); CALCIUM 8.7 mg/dL (8.5-10.1); CARBON DIOXIDE 21.4 mmol/L (21.0-32.0); CREATININE - SERUM 2.3 mg/dL (0.6-1.3); MAGNESIUM - SERUM 2.1 mg/dL (1.8-2.4); POTASSIUM - SERUM 4.4 mmol/L (3.5-5.1); PROTEIN - SERUM 6.6 g/dL (6.4-8.2)
[2019-02-10 06:40] LABS: MCV 90.3 fL (80.0-100.0)
[2019-02-10] MEDS ORDERED: OMNICEF300 MG PO (09:48)
--- NOTE | 2019-02-10 14:01 | MORECARE ---
CASE MANAGEMENT DISCHARGE SUMMARY PATIENT: BEE GARNER UNIT: [id number] ADM DATE: 02/08/19 AGE: 78 : 40 SEX: M ROOM/BED: D.2131 AUTHOR: RENAN CUEVA PHYSICIAN: REFERRING PHYSICIAN: NIDIA JIMENEZ MD DATE OF SERVICE: 02/10/19 Discharge Plan Patient Name: BEE GARNER [facility] [facility] 1940 Planned Disposition: Home with Hospice Anticipated Discharge Date: 02/10/19 Discharge Date: Expected LOS: 2 Initial Reviewer: [email or web address] Initial Review Date: 02/10/2019 Generated: 02/10/19 3:01 pm External Providers External Provider: [facility] Next Contact Date: 02/10/2019 Service Request Date: Service Type: Resolution: Reviewer: Comments: Coverage Notice Reviewer: [id number] Huertas Notice Issued Date-Time: 02/10/2019 12:10 Notice Type: IM Discharge Notice Notice Delivered To: Patient Relationship to Patient: Stabilizer Operator Name: Delivery Method: HAND - Hand Delivered Nohemi Days: Prior Verbal Notification: Recipient Understood Notice: Yes Recipient Signature: Yes Med Rec Note Co-signed by Attending: Coverage Notice Comment: Reviewer: MELITA Huertas Notice Issued Date-Time: 02/10/2019 12:10 Notice Type: Patient Choice Letter Notice Delivered To: Patient Relationship to Patient: Stabilizer Operator Name: Delivery Method: HAND - Hand Delivered Nohemi Days: Prior Verbal Notification: Recipient Understood Notice: Yes Recipient Signature: Yes Med Rec Note Co-signed by Attending: Coverage Notice Comment: HOSPICE HOME CARE Patient Name: BEE GARNER Page [phone] at 1401 All edits/amendments must be made on the electronic document DICTATION DATE: 02/10/19 1400 BOX CUTTER: DULCE 02/10/19 1400 RPT#: [id number] DC DATE: STATUS: ADM IN [facility] [address] [id number] END OF REPORT
--- NOTE | 2019-02-10 14:20 | MORECARE ---
CASE MANAGEMENT DISCHARGE SUMMARY PATIENT: BEE GARNER UNIT: [id number] ADM DATE: 02/08/19 AGE: 78 : 40 SEX: M ROOM/BED: D.2131 AUTHOR: HAMMAD,DOC PHYSICIAN: REFERRING PHYSICIAN: NIDIA JIMENEZ MD DATE OF SERVICE: 02/10/19 Discharge Plan Patient Name: BEE GARNER Facility: [facility]:[place] : 1940 Planned Disposition: Home with Hospice Anticipated Discharge Date: 02/10/19 Discharge Date: Expected LOS: 2 Initial Reviewer: [email or web address] Initial Review Date: 02/10/2019 Generated: 02/10/19 3:19 pm DCPIA - Discharge Planning Initial Assessment Updated by MELITA: Dylon Huertas on 02/10/19 2:10 pm * Is the patient Alert and Oriented? Yes * How many steps to enter\exit or inside your home? NONE * PCP DR. BLANC * Pharmacy [facility] * Preadmission Environment Home Alone * ADLs Partial Dependent * Partial ADLs (Assistance needed) Bathing Medication Management Transfers * Equipment Nebulizer Oxygen Power Chair or Electric Scooter * Other Equipment OXYGEN AT NIGHT ONLY HOSPICE HOME CARE - MEDICAL EQUIPMENT PROVIDER * List name and contact numbers for known caregivers / representatives who currently or will assist patient after discharge: CHRISTOPHER VILLAGRAN, FRIEND, JUAN, CAREGIVER, [phone] OR [phone] (TEXT) * Verbal permission to speak to the caregivers and representatives has been obtained from the patient. Yes * Community resources currently utilized Hospice Home * Please name any agencies selected above. HOSPICE [facility] C[facility], 40 HOURS PER WEEK * Additional services required to return to the preadmission environment? No * Can the patient safely return to the preadmission environment? Yes * Has this patient been hospitalized within the prior 30 days at any hospital? No Coverage Notice Reviewer: [email or web address] Victor Hugo Huertas Notice Issued Date-Time: 02/10/2019 12:10 Notice Type: IM Discharge Notice Notice Delivered To: Patient Relationship to Patient: Screw Eye Assembler Name: Delivery Method: HAND - Hand Delivered Nohemi Days: Prior Verbal Notification: Recipient Understood Notice: Yes Recipient Signature: Yes Med Rec Note Co-signed by Attending: Coverage Notice Comment: Reviewer: [id number] - Dylon Huertas Notice Issued Date-Time: 02/10/2019 12:10 Notice Type: Patient Choice Letter Notice Delivered To: Patient Relationship to Patient: Screw Eye Assembler Name: Delivery Method: HAND - Hand Delivered Nohemi Days: Prior Verbal Notification: Recipient Understood Notice: Yes Recipient Signature: Yes Med Rec Note Co-signed by Attending: Coverage Notice Comment: HOSPICE HOME CARE Last DP export: 02/10/19 1:01 p Patient Name: BEE GARNER Page [phone] at 1420 All edits/amendments must be made on the electronic document DICTATION DATE: 02/10/191418 DELIVERY ARCHITECT: DULCE 02/10/191418 RPT#: [id number] DC DATE: STATUS: ADM IN [facility] [address] [place] [address] END OF REPORT
--- NOTE | 2019-02-10 14:28 | MORECARE ---
CASE MANAGEMENT DISCHARGE SUMMARY PATIENT: BEE GARNER UNIT: [id number] ADM DATE: 02/08/19 AGE: 78 : 40 SEX: M ROOM/BED: D.2130 AUTHOR: HAMMADDOC PHYSICIAN: REFERRING PHYSICIAN: NIDIA JIMENEZ MD DATE OF SERVICE: 02/10/19 Discharge Plan Patient Name: BEE GARNER Facility: [facility]:[place] : 1940 Planned Disposition: Home with Hospice Anticipated Discharge Date: 02/10/19 Discharge Date: Expected LOS: 2 Initial Reviewer: [email or web address] Initial Review Date: 02/10/2019 Generated: 02/10/19 3:27 pm Comments DCP- Discharge Planning Updated by [email or web address]: Dylon Huertas on 02/10/19 1:[address] Patient Name: BEE GARNER Admission Status: ER Accout number: [id number] Admission Date: 02-08-2019 : 1940 Admission Diagnosis:SHORTNESS OF BREATH Attending: NIDIA JIMENEZ Current LOS: 2 Anticipated DC Date: 02-10-2019 Planned Disposition: Home with Hospice Primary Insurance: [facility] MEDICARE SOLUTIONS PLANNED EXTERNAL PROVIDER: HOSPICE HOME CARE Discharge Planning Comments: CM RECEIVED DISCHARGE ORDER, MET WITH PT IN ROOM TO DISCUSS DISCHARGE PLANNING AND NEEDS. PT REPORTS LIVING AT HOME DEPENDENTLY ON CAREGIVERS THAT COME TO HIS HOME 7 DAYS PER WEEK FROM [facility]. PT REPORTS HAVING HOSPICE HOME CARE AND WANTS SERVICES TO RESUME. PT DOES NOT THINK HE REVOKED HOSPICE AND DOES NOT WANT TO BE IN THE HOSPITAL AND DOES NOT KNOW WHY HE WAS SENT HERE.. PT HAS ASSISTANCE WITH GETTING TO HIS POWER CHAIR AT HOME, PT HAS OXYGEN AT NIGHT AND NEBULIZER. PT DENIES DISCHARGE NEEDS, REPORTS HE WILL NEED AMBULANCE FOR DISCHARGE HOME. IMPORTANT MESSAGE FROM MEDICARE PROVIDED AND EXPLAINED. HOSPICE PROVIDER LISTING PROVIDED, PT SIGNED CHOICE FOR HOSPICE HOME CARE. [facility] RECEIVED CALL FROM PT'S CAREGIVER, GHAZAL, , WHO VERIFIED PT HAS SUPERIOR [facility] FOR 40 HOURS PER WEEK. CM CALLED JUAN, PT HAS CARE 7 DAYS PER WEEK, THREE TIMES DAILY WEEKDAYS AND TWICE DAILY ON WEEKENDS TO MAXIMIZE HIS 40 HOURS OF HOME CARE. THEY WILL READMIT TODAY AFTER PT ARRIVES HOME. JUAN REPORTS PT IS NOT ABLE TO WALK AND REQUIRES ASSISTANCE TO TRANSFER. JUAN REPORTS PT REQUIRES AMBULANCE TO TRANSPORT HOME HE DID AFTER LAST HOSPITAL STAY. CM CALLED AND SPOKE TO JENNIFER OF HOSPICE HOME [facility],[phone], WHO INFORMED CM THAT FACE TO FACE NEEDS TO BE DONE PRIOR TO HOSPICE READMIT PT DID REVOKE FOR HOSPITAL ADMIT. NAYANA DAI ARRIVED FROM HOSPICE HOME CARE, SAW PT IN ROOM AND ADVISED THEY WILL ADMIT TODAY WHEN PT ARRIVES AT HOME TODAY. NAYANA STATES THAT PT WILL REQUIRE AMBULANCE HE IS NOT ABLE TO WALK AND REQUIRES ASSISTANCE. REFERRAL AND DISCHARGE INFORMATION PROVIDED TO NAYANA DAI. HOSPICE HOME CARE TO ADMIT PT AT HOME TODAY AFTER HE ARRIVES. PT'S PERSONAL CARE TO RESUME THIS EVENING. PT TO TRANSPORT HOME VIA AMBULANCE. Crotch Piece Baster: Dylon Huertas DCPIA - Discharge Planning Initial Assessment Updated by [id number]: Dylon Huertas on 02/10/19 2:10 pm * Is the patient Alert and Oriented? Yes * How many steps to enter\exit or inside your home? NONE * PCP DR. BLANC * Pharmacy [facility] * Preadmission Environment Home Alone * ADLs Partial Dependent * Partial ADLs (Assistance needed) Bathing Medication Management Transfers * Equipment Nebulizer Oxygen Power Chair or Electric Scooter * Other Equipment OXYGEN AT NIGHT ONLY HOSPICE HOME CARE - MEDICAL EQUIPMENT PROVIDER * List name and contact numbers for known caregivers / representatives who currently or will assist patient after discharge: CHRISTOPHER VILLAGRAN, FRIEND, JUAN, CAREGIVER, [phone] OR [phone] (TEXT) * Verbal permission to speak to the caregivers and representatives has been obtained from the patient. Yes * Community resources currently utilized Hospice Home * Please name any agencies selected above. [facility], 40 HOURS PER WEEK * Additional services required to return to the preadmission environment? No * Can the patient safely return to the preadmission environment? Yes * Has this patient been hospitalized within the prior 30 days at any hospital? No Coverage Notice Reviewer: [id number] - Dylon Huertas Notice Issued Date-Time: 02/10/2019 12:10 Notice Type: IM Discharge Notice Notice Delivered To: Patient Relationship to Patient: Hematology Nurse Name: Delivery Method: HAND - Hand Delivered Nohemi Days: Prior Verbal Notification: Recipient Understood Notice: Yes Recipient Signature: Yes Med Rec Note Co-signed by Attending: Coverage Notice Comment: Reviewer: [id number] Victor Hugo Huertas Notice Issued Date-Time: 02/10/2019 12:10 Notice Type: Patient Choice Letter Notice Delivered To: Patient Relationship to Patient: Hematology Nurse Name: Delivery Method: HAND - Hand Delivered Nohemi Days: Prior Verbal Notification: Recipient Understood Notice: Yes Recipient Signature: Yes Med Rec Note Co-signed by Attending: Coverage Notice Comment: HOSPICE HOME CARE Last DP export: 02/10/19 1:19 p Patient Name: BEE GARNER Page [phone] at 1428 All edits/amendments must be made on the electronic document DICTATION DATE: 02/10/191426 CORRECTIVE THERAPIST: DULCE 02/10/191426 RPT#: [id number] DC DATE: STATUS: ADM IN [facility] [address] [place] [address] END OF REPORT
--- NOTE | 2019-02-11 14:39 | EC ---
PATIENT:BEE GARNER DATE OF SERVICE: 02/08/19 SEX: M MEDICAL RECORD: [id number] DATE OF : 40 LOCATION:D.M2 D.213 AGE OF PATIENT: 78 ADMISSION DATE: 02/08/19 REFERRING PHYSICIAN: INTERPRETING PHYSICIAN: SANDER AARON MD ECHOCARDIOGRAM REPORT ECHO CHARGES 4 ECHO COMPLETE Date: 02/09/19 CLINICAL DIAGNOSIS: ELEVATED TROPNIN ECHOCARDIOGRAPHIC MEASUREMENTS (adult normal given) AC root (d.<3.7cm) 2.6 cm LV Septum d (<1.2 cm> 1.2 cm Valve Excursion 1.6 cm LV Septum (systole) 1.3 cm Left Atria (s.<4.0cm> 4.1 cm LVPW d(<1.2cm) 1.2 cm RV (d.<2.3cm) 3.8 cm LVPW (sytole) 1.6 cm LV diastole(<5.6CM) 5.0 cm MV E-F(>70mm/sec) cm LV systole 3.8 cm LVOT Diameter 2.2 cm MV exc.(>10mm) cm Est.ejection fraction (50-75%) % DOPPLER: LVIT cm/sec A 110 cm/sec E 46 cm/sec LA cm/sec RVSP 19.0 mmHg LVOT 74 cm/sec AOP1/2T m/s Asc. Ao 102 cm/sec RVOT cm/sec RA cm/sec PA cm/sec AV Gradient Peak 4.1 mmHg AV Mean 2.6 mmHg AV Area 3.1 cm MV Gradient Peak 6.7 mmHg MV Mean 2.1 mmHg MV Area cm COMMENTS: Preschool Teacher Assistant: Gilbert [facility] Install And Repair Technician: 1 Dr. Aaron TAPE# PACS Pericardial Effusion N DATE OF SERVICE: PROCEDURE: Echocardiogram. FINDINGS: 1. Left ventricular chamber size is within normal limits. Left ventricular systolic function is normal. Overall ejection fraction estimated at 55%. 2. Left atrium, right atrium and right ventricular chamber sizes are within normal limits. 3. Valvular structures have normal structure and motion. ECHOCARDIOGRAM REPORT [id number] BEE GARNER 4. Doppler interrogation reveals trace mitral regurgitation, trace tricuspid regurgitation, no other valvular insufficiency or stenosis. Pulmonary systolic pressure is normal estimated at 19 mmHg. 5. No evidence of pericardial effusion or left ventricular thrombus. TRANSINT:[id number] Voice Confirmation ID: [id number] DOCUMENT ID: [id number] SANDER AARON MD at 1439 CC: [id number] DICTATION DATE: 02/09/19912 STRIPPER AND PRINTER: 02/09/19 1508 DIS IN 02/10/19 [place] [id number] [place] [id number]
--- NOTE | 2019-02-11 14:39 | CN ---
PATIENT NAME:BEE LUNA MEDICAL RECORD: [id number] : 40 LOCATION:. D.2131 ADMIT DATE: 02/08/19 ACCOUNT: [id number] CONSULTING PHYSICIAN: SANDER MARQUIS MD REFERRING PHYSICIAN: NIDIA JIMENEZ MD DATE OF CONSULTATION: 02/09/2019 DIAGNOSES: 1. Elevated troponin, non-Q-wave myocardial infarction. 2. Coronary artery disease. 3. COPD. 4. Pneumonia. 5. Noninsulin-dependent diabetes. 6. Shortness breath, dyspnea on exertion. HISTORY: Mr. Luna presents with shortness of breath, dyspnea on exertion. He had no chest pain. His troponin is elevated. He has no cardiac history. He is hospice for his COPD and DNR. PHYSICAL EXAMINATION: GENERAL APPEARANCE: Well-nourished, well-developed, appears stated age. Level of distress, comfortable. PSYCHIATRIC: Mental status, alert, normal affect. Orientation, oriented to time, place and person. EYES: Lids and conjunctiva, noninjected. No discharge, no pallor. ENT: Lips, teeth, gums, normal dentition. Oropharynx, no cyanosis, no pallor. NECK: Carotid arteries, bilateral normal upstroke, no bruits, no thrills. JUGULAR VEINS: No jugular venous pressure or distention. CERVICAL LYMPH NODES: Nontender, nonenlarged. THYROID: Not enlarged. Nontender. No nodules. LUNGS: Respiratory effort, unlabored. CHEST: Normal curvature. No thoracic deformity. No chest wall tenderness. Percussion, resonant. Auscultation, clear. No wheezes, no rales, no rhonchi. CARDIOVASCULAR: Precordial exam, nondisplaced. No heaves or pericardial thrills. Rate and rhythm, regular. Heart sounds, normal S1, normal S2. No S3, no gallop, no rub. Systolic murmur, not heard. Diastolic murmur, not heard. EXTREMITIES: No cyanosis, no edema. Peripheral pulses, full and equal in all extremities, except as noted. No bruits appreciated. ABDOMEN: Soft, nondistended. Normal aorta. No bruit. Nontender. No masses. Liver, nontender, no hepatomegaly. Spleen, nontender, no splenomegaly. MUSCULOSKELETAL: No joint tenderness. No joint swelling. No erythema. NEUROLOGICAL: Normal gait, normal strength, normal tone. SKIN: Warm and dry. OVERALL IMPRESSION: Elevated troponin, most likely does have coronary artery disease, but obviously his lung problems are his most important and most pressing issue. At this time, only get an echo to see what his LV function is due to his shortness of breath. No other cardiac workup or treatment is necessary. He is already on an aspirin. We would avoid beta-harjit secondary to his COPD. TRANSINT:[id number] Voice Confirmation ID: [id number] DOCUMENT ID: [id number] CONSULT REPORT [id number] BEE LUNA, SANDER DIOP at 1439 CC: [id number] DICTATION DATE: 02/09/19 08 BODY WIRER: 02/09/19 1443 DIS IN 02/10/19 [facility] [address] [place] [address]
== END 2019-02-10 16:11 | disposition home health service (06) | DRG 193 ==
LOC: D.ER 19:17 → D.M2 20:33 → D.EDHOLD 20:33 → D.M2 20:46
PROVIDERS: Family Medicine; ADMIT Internal Medicine Nephrology; ATTEND Internal Medicine Nephrology
DX: J18.9 Pneumonia, unspecified organism (principal); I21.4 Non-ST elevation (NSTEMI) myocardial infarction; G92 Toxic encephalopathy; J96.11 Chronic respiratory failure with hypoxia; N17.9 Acute kidney failure, unspecified; F17.203 Nicotine dependence unspecified, with withdrawal; J43.9 Emphysema, unspecified; Z66 Do not resuscitate; E11.65 Type 2 diabetes mellitus with hyperglycemia; D64.9 Anemia, unspecified; I25.10 Atherosclerotic heart disease of native coronary artery without angina pectoris; R41.82 Altered mental status, unspecified

== ENCOUNTER 2019-06-09 23:49 | Inpatient (IN) | payer MEDICARE, MEDICAID ==
[~2019-06-09] VITALS: Ht 190.5 cm; Wt 72.6 kg
[~2019-06-09 23:49] MED LIST changes: +OMNICEF300 MG PO
[2019-06-10] VITALS (8 sets, daily range): BP systolic 99–155; BP diastolic 56–76; BMI 20.6
[2019-06-10 01:04] LABS: BASOPHILS 0.2 % (0-2); EOSINOPHILS 2.3 % (0-7); HEMATOCRIT 39.9 % (42.0-54.0); HEMOGLOBIN 13.2 g/dL (13.5-17.5); IMMATURE GRANULOCYTES 0.3 % (0-5); LYMPHOCYTES 10.3 % (15-50); MCH 30.4 pg (26.0-34.0); MCHC 33.1 g/dL (31.0-37.0); MCV 91.9 fL (80.0-100.0); MEAN PLATELET VOLUME 9.3 fL (7.4-10.4); MONOCYTES 6.6 % (2-11); NEUTROPHILS 80.3 % (40-80); PLATELET COUNT 218 10x3/uL (130-400); RBC 4.34 10x6/uL (4.20-6.10); RDW 14.5 % (11.5-14.5)
[2019-06-10 01:12] LABS: ALBUMIN 3.8 g/dL (3.4-5.0); ANION GAP 15.9 mmol/L (8-16); BILIRUBIN - TOTAL 0.39 mg/dL (0.2-1.3); CALCIUM 9.2 mg/dL (8.5-10.1); CARBON DIOXIDE 26.2 mmol/L (21.0-32.0); CREATININE - SERUM 1.9 mg/dL (0.6-1.3); POTASSIUM - SERUM 5.1 mmol/L (3.5-5.1); PROTEIN - SERUM 7.3 g/dL (6.4-8.2)
--- NOTE | 2019-06-10 01:35 | NUR ---
skin tear on left elbow cleaned and redressed under splint. left humerus splinted by edp, assisted at bedside. skin tear on left wrist cleaned and dressed. morphine 4 mg iv administered zofran 4 mg iv administered.
--- NOTE | 2019-06-10 04:30 | NUR ---
PT ARRIVED TO FLOOR VIA STRETCHER, ALERT AND ORIENTED. STATES PAIN 9/10 IN LEFT ARM AFTER TRANSFERING TO BED. LEFT WRIST SKIN TEAR DRESSING CDI, DRESSING TO LEFT ELBOW SKIN TEAR. IV RIGHT AC SL, FLUSHES EASILY. O2 1.5L/NC. PT HAS BLACK WATCH, GLASSES WITH CLOTH CASE, AND GOLD RING ON RIGHT HAND. STATES HE FORGOT HEARING AIDS AT HOME. EXTREMELY HARD OF HEARING. PT UNABLE TO NAME MEDICATIONS HE TAKES. NO FAMILY AT BEDSIDE. OLD LEFT BKA. RIGHT GREAT TOE SCAB WITH ABRASION. CLEANED AND PLACED DRESSING. SCABS TO RIGHT LEG. BACKSIDE CLEAR. WEARING BRIEFS FOR INCONTINENCE. DENIES NEEDS AT THIS TIME. FALL PRECAUTIONS IN PLACE. RICHIE ON. CL IN REACH, WILL CTM
--- NOTE | 2019-06-10 07:30 | NUR ---
PT RESTING IN BED WITH EYES OPEN, ALERT AND ORIENTED. EXTREMELY HARD OF HEARING. ASKING WHEN HE WILL GET TO GO HOME BECAUSE HE HAS BEEN HERE FOR OVER AN HOUR AND IS READY TO LEAVE. IV LOCATED TO RIGHT AC SALINE LOCKED. RCVING 1.5L PER NC. WHEEZING NOTED IN ALL LOBES. LEFT ARM IN SLING R/T FX. DENIES ANY NEEDS AT THIS TIME. BED LOW, CALL LIGHT IN REACH, RAILS UP X 2. WILL CONTINUE TO MONITOR.
[2019-06-10 15:13] LABS: % SATURATION 11 % (15-55); IRON 34 ug/dl (35-150); TOTAL IRON BIND CAPACITY 299 ug/dl (260-445); UNSAT IRON BIND CAPACITY 265 ug/dl (150-375)
--- NOTE | 2019-06-10 16:00 | NUR ---
ENTERED PTS ROOM AFTER HE YELLED OUT "BREAK THE DOOR DOWN AND COME IN, OR IM COMING OUT" WHEN I ENTER I FOUND HIS FOOD TRAY BEEN THROWN ACROSS THE ROOM AND HE IS YELLING THAT HE IS GOING TO GO OUTSIDE TO SMOKE OR SOMEBODY IS GOING TO . I INFORMED HIM HE COULDNT GO OUTSIDE AT THIS TIME AND HE COULDNT SMOKE WHILE WEARING A NICOTINE PATCH. HE REQUESTED PAIN MEDICINE SO I ADMINISTERED NORCO PER DRS ORDERS AND WHEN I [facility]URNED FROM THE [facility] HE HAD TAKEN HIS NICOTINE PATCH OFF AND THROWN IT INTO THE FLOOR. HE IS VERY ANGRY AND WANTS TO LEAVE, HE SAYS HE CANT STAY UNTIL THE MORNING WAITING TO HAVE SURGERY HE NEEDS TO GO HOME FOR A WHILE. HE EVENTUALLY CALMED DOWN AFTER TAKING THE NORCO BUT STILL ISNT "HAPPY" BED LOW, CALL LIGHT IN REACH, RAILS UP X 3. WILL CONTINUE TO MONITOR.
--- NOTE | 2019-06-10 20:30 | NUR ---
PT PULLED IV OUT. WILL RESITE IV.
[2019-06-11] VITALS (9 sets, daily range): BP systolic 108–153; BP diastolic 56–79
--- NOTE | 2019-06-11 01:49 | NUR ---
PT RESTING IN BED. EYES CLOSED. NO SIGNS OF DISTRESS. BREATHING EVEN AND UNLABORED. 1.5LO2 NASAL CANNLA. LT ARM SLING. BOWEL SOUNDS ACTIVE. WILL CONTINUE PLAN OF CARE. CALL LIGHT IN REACH. BED LOWERED AND LOCKED. RICHIE ALARM ON. BED RAILS UP X2. RICHIE ALARM ON. YELLOW GOWN ON.
--- NOTE | 2019-06-11 03:27 | NUR ---
I have reviewed this patient and I concur with the Shift Assessment completed by the Licensed Practical Nurse today this shift.
[2019-06-11 06:47] LABS: BASOPHILS 0.1 % (0-2); EOSINOPHILS 2.3 % (0-7); HEMATOCRIT 33.9 % (42.0-54.0); IMMATURE GRANULOCYTES 0.2 % (0-5); LYMPHOCYTES 13.6 % (15-50); MCH 30.1 pg (26.0-34.0); MCHC 32.4 g/dL (31.0-37.0); MCV 92.9 fL (80.0-100.0); MEAN PLATELET VOLUME 9.4 fL (7.4-10.4); MONOCYTES 9.9 % (2-11); NEUTROPHILS 73.9 % (40-80); PLATELET COUNT 185 10x3/uL (130-400); RBC 3.65 10x6/uL (4.20-6.10); RDW 15.1 % (11.5-14.5); WBC 10.2 10x3/uL (4.8-10.8)
[2019-06-11 06:48] LABS: ANION GAP 14.7 mmol/L (8-16); CARBON DIOXIDE 26.1 mmol/L (21.0-32.0); POTASSIUM - SERUM 4.8 mmol/L (3.5-5.1)
[2019-06-11 06:49] LABS: CREATININE - SERUM 2.5 mg/dL (0.6-1.3)
--- NOTE | 2019-06-11 07:35 | NUR ---
PT RESTING IN BED WITH EYES CLOSED, EASILY AROUSED TO TOUCH, EXTREMELY HARD OF HEARING. ASKING WHEN HE WILL GO TO SURGERY. IV LOCATED TO BACK OF RIGHT FOREARM SALINE LOCKED. REMOVED JEWLERY AND PLACED IN TOP DRAWER OF NIGHTSTAND FOR WHILE HE IS GONE TO SURGERY. BED LOW, CALL LIGHT IN REACH, RAILS UP X2. WILL CONTINUE TO MONITOR.
[2019-06-11] MEDS ORDERED: LISINOPRIL2.5 MG PO (19:14)
[2019-06-11] MEDS ORDERED: MOBIC7.5 MG PO (19:15)
[2019-06-11] MEDS ORDERED: CYCLOBENZAPRINE10 MG PO (19:16)
[2019-06-11] MEDS ORDERED: CELEXA40 MG PO (19:17)
[2019-06-11] MEDS ORDERED: ATIVAN0.5 MG PO (19:18)
[2019-06-11] MEDS ORDERED: COLACE100 MG PO (19:21)
[2019-06-11] MEDS ORDERED: MIRALAX17 GM PO (19:22)
[2019-06-11] MEDS ORDERED: HYDROCODON-ACE1 EA10 PO (19:23)
[2019-06-11] MEDS ORDERED: PHENERGAN25 M1 PO (19:24)
[2019-06-11] MEDS ORDERED: TEMAZEPAM30 MG PO (19:25)
[2019-06-11] MEDS ORDERED: ULTRAM50 MG PO (19:25)
[2019-06-11] MEDS ORDERED: ZOFRAN4 MG PO (19:26)
[2019-06-11] MEDS ORDERED: ALBUTEROL2.5 MG/3 M INH (19:28)
[2019-06-11] MEDS ORDERED: ALBUTEROL SULF8.5 GM INH (19:31)
--- NOTE | 2019-06-11 20:30 | NUR ---
RESTING QUEITLY WITH EYES CLOSED RESP EVEN AND UNLABORED. NO DISTRESS NOTED. PASCUAL WRAP DRESSING INTACT TO LEFT ARM WITHOUT DRAINAGE NOTED. SLING INTACT. NO COMPLAITNS OF PAIN AT THIS TIME. IV TO RFA INTACT WITHOUT DRAINAGE NOTED. CL IN REACH
[2019-06-12] VITALS: BP 127/59
--- NOTE | 2019-06-12 02:01 | NUR ---
I have reviewed this patient and I concur with the Shift Assessment completed by the Licensed Practical Nurse today this shift.
[2019-06-12 04:00] VITALS: BP 128/60
[2019-06-12 06:45] LABS: BASOPHILS 0.1 % (0-2); EOSINOPHILS 0.6 % (0-7); HEMATOCRIT 31.4 % (42.0-54.0); HEMOGLOBIN 10.2 g/dL (13.5-17.5); IMMATURE GRANULOCYTES 0.2 % (0-5); LYMPHOCYTES 13.4 % (15-50); MCH 30.4 pg (26.0-34.0); MCHC 32.5 g/dL (31.0-37.0); MCV 93.5 fL (80.0-100.0); MEAN PLATELET VOLUME 9.5 fL (7.4-10.4); MONOCYTES 8.8 % (2-11); NEUTROPHILS 76.9 % (40-80); PLATELET COUNT 191 10x3/uL (130-400); RBC 3.36 10x6/uL (4.20-6.10); RDW 15.2 % (11.5-14.5); WBC 10.5 10x3/uL (4.8-10.8)
[2019-06-12 06:59] LABS: ANION GAP 15.4 mmol/L (8-16); CALCIUM 8.9 mg/dL (8.5-10.1); CARBON DIOXIDE 24.4 mmol/L (21.0-32.0); CREATININE - SERUM 2.6 mg/dL (0.6-1.3); POTASSIUM - SERUM 4.8 mmol/L (3.5-5.1)
--- NOTE | 2019-06-12 07:35 | NUR ---
ALERT AND ORIENTED. POD #1 ORIF LEFT HUMERUS, DRESSING C/D/I. SCDS PRESENT. SKIN TEARS TO LEFT ELBOW AND ARM. ON 4L O2, NC. IV TO RIGHT HAND, 1/2 NS INFUSING @ 50ML/HR. SITE PATENT WITHOUT REDNESS OR SWELLING. PT DENIES ANY NEEDS AT THIS TIME. CALL LIGHT IN REACH. WILL CONTINUE TO MONITOR.
[2019-06-12 08:30] VITALS: BP 136/94
[2019-06-12 12:47] VITALS: BP 118/69; BP 129/63
--- NOTE | 2019-06-12 13:02 | NUR ---
I have reviewed this patient and I concur with the Shift Assessment completed by the Licensed Practical Nurse today this shift.
--- NOTE | 2019-06-12 15:24 | NUR ---
TRIED TO OBTAIN URINE SPECIMEN BUT UNSUCCESSFUL. PATIENT IS INCONTINENT OF BOWEL AND BLADDER. TRIED TO IN AND OUT CATH PATIENT, NO URINE COLLECTED. REPORTED TO FILIBERTO PEREA APRN.
--- NOTE | 2019-06-12 15:25 | OP ---
PATIENT NAME: BEE GARNER MEDICAL RECORD: [id number] :40 LOCATION:D.MS [id number] ADMISSION DATE:06/10/19 SURGEON: SATISH LIZARRAGA MD DATE OF OPERATION: 06/11/2019 PREOPERATIVE DIAGNOSIS: Left proximal humerus fracture, comminuted with shaft extension. POSTOPERATIVE DIAGNOSIS: Left proximal humerus fracture, comminuted with shaft extension. PROCEDURE: Open reduction and internal fixation of the above. SURGEON: Satish Lizarraga MD EDGE BURNISHER UPPERS: Gabriele Ochoa INTRAOPERATIVE COMPLICATIONS: None. SUMMARY OF PATHOLOGIC FINDINGS: The patient had a fracture with comminution of the lesser tuberosity. Fortunately, this was all fixable using both plates and cables. Implants used were the AxSOS 3 6-hole plate along with two 1.6 mm Gifty-Kevin cables and this did result in excellent fixation. OPERATIVE SUMMARY IN DETAIL: After obtaining the appropriate preoperative orthopedic surgery consent as well as anesthetic consultation, evaluation and clearance, the patient was brought to the operating room and placed on the operating table in supine position. After adequate general endotracheal anesthesia was administered, the patient was placed in the beach chair position. All pressure points were well padded. He was held firmly to the operating table using the vacuum pack suction system. At this point, the appropriate preoperative timeout was taken including the appropriate surgical site identifiers as well as the patient identifiers, medications, allergies, and antibiotics. This was agreed upon by all in the operative suite. A deltopectoral incision was taken down to the level of the fracture site. Care was taken to avoid injury to the cephalic vein. It was protected throughout the entire case. Fluoroscopy was brought in and under fluoroscopic visualization, reduction maneuver was performed. It was held temporarily with reduction forceps. At this point, 2 Dall-Miles cables were passed around this long oblique fracture, holding them in an anatomic position and then again under fluoroscopy the AxSOS 3 plate was placed. Serial and sequential drill and fill was done with a combination of both locking and nonlocking screws. This resulted in anatomic hinduism seen on real-time fluoroscopy. Having completed the fixation, final radiographs were taken in both AP and lateral planes and submitted for radiologist review. At this point, the wound was copiously irrigated and then filled with a gram of vancomycin and a gram of tobramycin and then the deltopectoral interval was closed with #1 Vicryl followed by #1 Vicryl closure for the incision as well as skin renetta. This was done by xiomara Sabillon that is. Sterile dressings were applied. Estimated blood loss was 200 cc. The patient was awakened and taken to recovery room in stable condition. All final needle and sponge counts were correct. TRANSINT:[id number] Voice Confirmation ID: [id number] DOCUMENT ID: [id number] OPERATIVE REPORT [id number] BEE GARNER MD, SATISH LOPES at 1525 CC: [id number] DICTATION DATE: 06/12/19 1055 COOK SHORT ORDER: 06/12/19 1144 ADM IN [place] [id number] [place] [address]
--- NOTE | 2019-06-12 15:50 | NUR ---
PLACED CONDOM CATHETER ON PATIENT TO COLLECT URINE SPECIMEN.
[2019-06-12 16:51] VITALS: BP 141/67
[2019-06-12 17:37] LABS: APPEARANCE CLEAR (CLEAR); BILIRUBIN NEGATIVE (NEGATIVE); COLOR YELLOW (YELLOW); GLUCOSE NEGATIVE (NEGATIVE); KETONE NEGATIVE (NEGATIVE); NITRITE NEGATIVE (NEGATIVE); PROTEIN TRACE mg/dL (NEGATIVE); SPECIFIC GRAVITY 1.015 (1.005-1.020); UROBILINOGEN NORMAL (NORMAL)
[2019-06-12 17:39] LABS: RED CELLS - URINE 0-5 /hpf (0-5)
[2019-06-12 17:40] LABS: BACTERIA FEW /hpf (NONE SEEN)
[2019-06-12 20:00] VITALS: BP 157/76
--- NOTE | 2019-06-12 20:00 | NUR ---
EYES CLOSED RESTING IN BED, AROUSED EASILY TO TOUCH, SEE SHIFT ASSESSMENT, SLING IN PLACE TO LEFT ARM, FINGERS WARM, ABLE TO MOVE, DENIES PAIN, CALL LIGHT IN REACH
[2019-06-13] VITALS: BP 141/66
[2019-06-13 04:00] VITALS: BP 112/64
[2019-06-13 06:50] LABS: BASOPHILS 0.2 % (0-2); EOSINOPHILS 1.1 % (0-7); HEMATOCRIT 29.5 % (42.0-54.0); HEMOGLOBIN 9.6 g/dL (13.5-17.5); IMMATURE GRANULOCYTES 0.2 % (0-5); LYMPHOCYTES 10.3 % (15-50); MCHC 32.5 g/dL (31.0-37.0); MCV 92.2 fL (80.0-100.0); MEAN PLATELET VOLUME 9.4 fL (7.4-10.4); MONOCYTES 9.7 % (2-11); NEUTROPHILS 78.5 % (40-80); PLATELET COUNT 185 10x3/uL (130-400); WBC 11.3 10x3/uL (4.8-10.8)
[2019-06-13 07:00] LABS: ANION GAP 15.3 mmol/L (8-16); CALCIUM 8.5 mg/dL (8.5-10.1); CARBON DIOXIDE 22.4 mmol/L (21.0-32.0); CREATININE - SERUM 2.1 mg/dL (0.6-1.3); POTASSIUM - SERUM 4.7 mmol/L (3.5-5.1)
--- NOTE | 2019-06-13 07:25 | NUR ---
ALERT AND ORIENTED. VERY [place]. NO C/O PAIN. NO S/S OF ACUTE DISTRESS NOTED. POD #2 ORIF LEFT HUMERUS, DRESSING C/D/I. LEFT ARM IN SLING. LEFT BKA. SCD TO LEFT LEG. IV TO RIGHT HAND, 1/2 NS INFUSING @ 75ML/HR. SITE PATENT WITHOUT REDNESS OR SWELLING. PT DENIES ANY NEEDS. CALL LIGHT IN REACH. WILL CONTINUE TO MONITOR.
[2019-06-13 09:35] VITALS: BP 129/62
[2019-06-13 13:16] VITALS: BP 125/60
--- NOTE | 2019-06-13 15:46 | NUR ---
I have reviewed this patient and I concur with the Shift Assessment completed by the Licensed Practical Nurse today this shift.
[2019-06-13 17:16] VITALS: BP 123/54
--- NOTE | 2019-06-13 18:26 | NUR ---
ALERT AND ORIENTED, EATING SUPPER. NO C/O PAIN. NO S/S OF ACUTE DISTRESS NOTED. CALL LIGHT IN REACH. PT DENIES ANY NEEDS. WILL CONTINUE TO MONITOR.
[2019-06-13 20:00] VITALS: BP 128/56
--- NOTE | 2019-06-13 20:00 | NUR ---
ALERT RESTING IN BED, RESP UNLABORED EXP WHEEZING NOTED BILATERLY O2 IN USE N/C, SEE SHIFT ASSESSMENT, CALL LIGHT IN REACH
[2019-06-14] VITALS: BP 139/77
[2019-06-14 04:00] VITALS: BP 122/80
--- NOTE | 2019-06-14 07:45 | NUR ---
PT CONFUSED THIS AM, THINKS HE IS AT [facility] AND IN HIS WHEELCHAIR. KEEPS WANTING TO GO OUTSIDE AND SMOKE. VERY [place], HEARING AID TO RIGHT EAR. POD #3 ORIF LEFT HUMEROUS, DRESSING C/D/I. SLING TO LEFT ARM. LEFT BKA. SCD TO RIGHT LEG. ON 4L O2, NC. IV TO RIGHT FOREARM, 1/2 NS INFUSING @ 75ML/HR. SITE PATENT WITHOUT REDNESS OR SWELLING. NO C/O PAIN. NO S/S OF ACUTE DISTRESS NOTED. PT DENIES ANY NEEDS. CALL LIGHT IN REACH. WILL CONTINUE TO MONITOR.
[2019-06-14 08:07] VITALS: BP 103/58
[2019-06-14 10:17] LABS: BASOPHILS 0.1 % (0-2); EOSINOPHILS 2.5 % (0-7); HEMATOCRIT 30.4 % (42.0-54.0); IMMATURE GRANULOCYTES 0.3 % (0-5); MCH 30.7 pg (26.0-34.0); MCHC 32.9 g/dL (31.0-37.0); MCV 93.3 fL (80.0-100.0); MEAN PLATELET VOLUME 9.2 fL (7.4-10.4); MONOCYTES 10.5 % (2-11); NEUTROPHILS 73.6 % (40-80); PLATELET COUNT 188 10x3/uL (130-400); RBC 3.26 10x6/uL (4.20-6.10); WBC 8.7 10x3/uL (4.8-10.8)
[2019-06-14 10:28] LABS: ANION GAP 16.3 mmol/L (8-16); CALCIUM 8.8 mg/dL (8.5-10.1); CARBON DIOXIDE 20.9 mmol/L (21.0-32.0); POTASSIUM - SERUM 4.2 mmol/L (3.5-5.1)
[2019-06-14 14:01] VITALS: BP 143/67
--- NOTE | 2019-06-14 16:45 | NUR ---
I have reviewed this patient and I concur with the Shift Assessment completed by the Licensed Practical Nurse today this shift.
[2019-06-14 17:28] VITALS: BP 138/48
--- NOTE | 2019-06-14 19:45 | NUR ---
PT SITTING UP IN BED TALKING TO SELF, CONFUSED TO PLACE, TIME AND SITUATION. KEEPS STATING HE IS IN DIFFERENT LOCATIONS AND REPEATEDLY ASKS FOR CIGARETTES. UNABLE TO REORIENT AFTER MULTIPLE ATTEMPTS. PT IS FOLLOWING COMMANDS. IV RIGHT FA INFUSING 1/2NS @ 75. VERY [place]. DRESSING TO LEFT ARM CDI WITH SLING IN PLACE. DRESSING TO RIGHT GREAT TOE CDI. O2 4L/NC. CONDOM CATH IN PLACE. DENIES NEEDS AT THIS TIME. CL IN REACH, WILL CTM
[2019-06-14 20:00] VITALS: BP 139/63
[2019-06-15] VITALS: BP 143/71
--- NOTE | 2019-06-15 02:00 | NUR ---
PT PULLED IV OUT WITH CATHETER INTACT AND PULLED OFF CONDOM CATH. PLACED NEW CONDOM CATHETER AND SITED IV RIGHT FA X1 ATTEMPT. RICHIE ON. WILL CTM
[2019-06-15 04:00] VITALS: BP 132/65
[2019-06-15 06:34] LABS: BASOPHILS 0.2 % (0-2); EOSINOPHILS 3.1 % (0-7); HEMATOCRIT 27.4 % (42.0-54.0); IMMATURE GRANULOCYTES 0.5 % (0-5); LYMPHOCYTES 15.5 % (15-50); MCH 30.2 pg (26.0-34.0); MCHC 32.8 g/dL (31.0-37.0); MCV 91.9 fL (80.0-100.0); MEAN PLATELET VOLUME 9.1 fL (7.4-10.4); MONOCYTES 9.1 % (2-11); NEUTROPHILS 71.6 % (40-80); PLATELET COUNT 218 10x3/uL (130-400); RBC 2.98 10x6/uL (4.20-6.10); RDW 14.8 % (11.5-14.5); WBC 8.5 10x3/uL (4.8-10.8)
[2019-06-15 06:58] LABS: ANION GAP 16.5 mmol/L (8-16); CALCIUM 8.8 mg/dL (8.5-10.1); CARBON DIOXIDE 21.5 mmol/L (21.0-32.0); CREATININE - SERUM 1.8 mg/dL (0.6-1.3)
--- NOTE | 2019-06-15 07:10 | NUR ---
PT IS RESTING IN BED WITH EYES CLOSED. RESPIRATIONS ARE EVEN AND UNLABORED. PT IS EASILY AROUSED WITH VERBAL STIMULATION. PT IS CONFUSED X 4. ATTEMPT MADE TO REORIENT PT BUT IS UNSUCCESSFUL. PT CONTINUES WITH CONFUSION AND INAPPROPRIATE ANSWERS TO QUESTIONING. PT IS [place] AND (1) HEARING AID IS SEEN ON PT BEDSIDE TABLE. O2 VIA NC @ 3.5L. PT CATTEMPTS TO TAKE O2 OFF, O2 PLACED BACK IN PT NOSE MULTIPLE TIMES DURING ASSESSMENT. DRESSING TO LEFT SHOULDER IS C/D/I. LEFT ARM IS IN A SLING. PT WITH VERY WET COUGH AND WET LUNG SOUNDS. INCENTIVE SPIROMETER AT BEDSIDE, PT IS UNABLE TO RETURN PROPER DEMONSTRATION OF IS. LEFT BKA NOTED. SCD TO RIGHT LEG. BED IS IN THE LOWEST POSITION. CALL LIGHT AND BEDSIDE TABLE ARE WITHIN REACH. SIDE RAILS X 2. RICHIE ALARM IS ON AND WORKING. PT EDUCATED ON IMPORTANCE OF REPOSITIONING. PT ASSISTED TO REPOSITION FROM RIGHT SIDE, PT ANGRILY STATES THAT HE WILL NOT MOVE AND LIKES TO BE ON HIS RIGHT SIDE. PT DENIES FURTHER NEEDS. WILL CONT TO MONITOR.
[2019-06-15 08:34] VITALS: BP 157/63
--- NOTE | 2019-06-15 11:19 | NUR ---
Rehab Prescreening Consult recieved and the chart has been reviewed. He is [facility] managed Medicare which would require a preauth for the ARU. According to the PT notes he is non ambulatory and does not transfer so did not participate in therapy. PT recommends he return home and resume Hospice care. He is not appropriate for the ARU. Catie Pittman RN Clinical Liaison, Rehab
[2019-06-15 14:50] VITALS: BMI 20.6
--- NOTE | 2019-06-15 15:54 | NUR ---
16 FR IN AND OUT CATH CONDUCTED BY STERILE TECHNIQUE. YELLOW CLEAR URINE NOTED TO COLLECTION BAG. 500ML URINE DRAINED FROM BLADDER. URINE OBTAINED FOR URINE CULTURE. PT TOLERATED WELL. BED IS IN THE LOWEST POSITION. CALL LIGHT AND BEDSIDE TABLE ARE WITHIN REACH. SIDE RAILS X 2. RICHIE ALARM IS ON AND WORKING. WILL CONT TO MONITOR.
[2019-06-15 17:18] VITALS: BP 151/69
--- NOTE | 2019-06-15 19:55 | NUR ---
LYING IN BED AGAINST SIDE RAIL, YELLING OUT. AGITATED. UNABLE TO REDIRECT. CONFUSED AND TALKING TO PEOPLE NOT PRESENT.PREOCCUPIED WITH DYING. STATES HES GOT TO GO HOME TOMORROW BECAUSE HE IS SUPPOSED TO BE IN A CASKET. RICHIE ALARM IN USE FOR PT SAFETY. RESP IRREG. O2 @ 3L/NC. NONPROD LOOSE COUGH NOTED. BBS RHONCHI. SCD TO RLE. LT BKA NOTED. BANDAID TO RT GREAT TOE. SKIN TEAR TO LT ELBOW. DRSG NOTED TO LT SHOULDER WITH PASCAUL WRAP TO LUE. SLING TO LT ARM. HEARING AIDE TO RT EAR. 1/2 NS @ 75 ML/HR INFUSING IN RT FOREARM. HOB ELEVATED. INCONT OF B/B. SR ELEVATED X3. CL IN REACH.
[2019-06-15 21:15] VITALS: BP 120/75
[2019-06-16] VITALS (7 sets, daily range): BP systolic 112–168; BP diastolic 28–81
--- NOTE | 2019-06-16 02:21 | NUR ---
CONFUSED, AGITATED AND YELLING OUT MOST OF NIGHT UNTIL NOW. EYES CLOSED. RESP NONLABORED. RICHIE ON. CL IN REACH. NO DISTRESS.
--- NOTE | 2019-06-16 12:59 | NUR ---
OT NOTE: PT MORE ALERT AND LESS CONFUSED TODAY. INFORMED BY NURSING THAT PT WAS ABLE TO FEED HIMSELF BREAKFAST THIS AM. PERFORMED BED MOB WITH MOD ASSIST; SITTING BALANCE ON EOB WAS GOOD X 10 MIN; SIT TO STAND WITH MAX ASSIST WITHOUT USE OF PROSTHESIS X 1-2 MIN. UE AROM EXS WITH MOD REST BREAKS. BACK TO BED WITH MOD ASSIST. ANNIE BERG, OTR/L
--- NOTE | 2019-06-16 13:17 | NUR ---
PT ORIENTED TO SELF. COURSE WHEEZES TO LEFT SIDE, 3L O2 PER NC. IV TO RIGHT HAND, PATENT, DRESSSING CDI. PASCUAL AND SLING TO LEFT ARM, DRESSING TO LEFT SHOULDER CDI. SKIN PEELING ON SCROTUM. SKIN TEAR TO RIGHT GREAT TOE, DRESSING CHANGED. BED LOW, CALL LIGHT IN REACH. NO OTHER NEEDS AT THIS TIME.
--- NOTE | 2019-06-16 15:31 | NUR ---
OT NOTE: PT COMPLETED BED MOB TASKS WITH MOD A. PT COMPLETED HYGIENE TASKS WITH MIN A. PT STATED HE COULD NOT FIND HEARING AID. NURSING NOTIFIED. THANK YOU, KATHY CRAWFORD
--- NOTE | 2019-06-16 20:00 | NUR ---
ALERT RESTING IN BED, STATES READY TO GET OUT OF HERE AND GO HOME, DRESSING INTACT TO LEFT SHOULDER SLING IN USE, SEE ASSESSMENT, CALL LIGHT IN REACH
[2019-06-17 00:56] VITALS: BP 139/66
[2019-06-17 05:54] VITALS: BP 133/65
[2019-06-17 07:45] LABS: BASOPHILS 0.4 % (0-2); EOSINOPHILS 2.9 % (0-7); HEMATOCRIT 28.1 % (42.0-54.0); HEMOGLOBIN 9.3 g/dL (13.5-17.5); IMMATURE GRANULOCYTES 0.5 % (0-5); MCH 30.5 pg (26.0-34.0); MCHC 33.1 g/dL (31.0-37.0); MCV 92.1 fL (80.0-100.0); MEAN PLATELET VOLUME 8.8 fL (7.4-10.4); MONOCYTES 11.4 % (2-11); NEUTROPHILS 68.8 % (40-80); PLATELET COUNT 244 10x3/uL (130-400); RBC 3.05 10x6/uL (4.20-6.10); RDW 15.2 % (11.5-14.5); WBC 7.7 10x3/uL (4.8-10.8)
[2019-06-17 07:55] LABS: ANION GAP 14.9 mmol/L (8-16); CALCIUM 8.9 mg/dL (8.5-10.1); CARBON DIOXIDE 22.9 mmol/L (21.0-32.0); CREATININE - SERUM 1.8 mg/dL (0.6-1.3); POTASSIUM - SERUM 3.8 mmol/L (3.5-5.1)
--- NOTE | 2019-06-17 08:11 | NUR ---
PT RESTING IN BED. CHEST RISING AND FALLING. NO S/S OF ACUTE DISTRESS. CL IN PLACE.
[2019-06-17 09:45] VITALS: BP 112/47
--- NOTE | 2019-06-17 12:44 | NUR ---
OT NOTE: BED MOB WITH MOD ASSIST; STATIC SITTING ON EOB WITH CGA; SIT TO STAND WITH MOD ASSIST X 2.. TOLERATED STANDING APPROX 1 MIN. BACK TO BED WITH MOD ASSIST; ROLLING FROM SIDE TO SIDE WITH MOD ASSIST; RE ADJUSTED SLING TO CORRECT POSITION. ABLE TO WASH FACE WITH CLOTH WITH SET UP; MAX ASSIST WITH TOILETING AND HYGIENE. FAMILY TO VISIT AND BROUGHT BIRTHDAY CAKE ITS PTS BDAY TODAY. ENCOURAGED FAMILY TO ALLOW PT TO FEED HIMSELF TO INCREASE ADL INDEP. ANNIE BERG, OTR/L
[2019-06-17 13:44] VITALS: BP 102/46
--- NOTE | 2019-06-17 14:49 | NUR ---
OT NOTE: PT COMPLETED SELF CLEANING WITH MAX A FOR LE. PT COMPLETED UB CLEANING WITH MOD A. PT REQUIRED TOTAL A FOR SLING MANAGEMENT. PT COMPLETED BED MOB TASKS WITH MOD A. FAMILY AT BEDSIDE WITH BIRTHDAY CAKE. THANK YOU, KATHY CRAWFORD
--- NOTE | 2019-06-17 18:06 | NUR ---
PT RESTING IN BED. "WHERE AM I WHAT STATE?" REORIENTED WITH SUCCESS. NO S/S OF ACUTE DISTRESS. CL IN PLACE.
--- NOTE | 2019-06-17 20:00 | NUR ---
RESTING QUITELY IN BED EYES CLOSED, RESP UNLABORED O2 IN USE,AROUSED EASLY, SEE SHIFT ASSESSMENT, CALL LIGHT IN REACH
[2019-06-17 22:39] VITALS: BP 103/51
[2019-06-18] VITALS (9 sets, daily range): BP systolic 113–140; BP diastolic 40–85
[2019-06-18 06:45] LABS: BASOPHILS 0.2 % (0-2); EOSINOPHILS 1.5 % (0-7); HEMATOCRIT 29.7 % (42.0-54.0); IMMATURE GRANULOCYTES 0.6 % (0-5); LYMPHOCYTES 12.8 % (15-50); MCH 31.3 pg (26.0-34.0); MCHC 33.7 g/dL (31.0-37.0); MCV 92.8 fL (80.0-100.0); MEAN PLATELET VOLUME 8.7 fL (7.4-10.4); MONOCYTES 9.5 % (2-11); NEUTROPHILS 75.4 % (40-80); PLATELET COUNT 253 10x3/uL (130-400); RDW 15.4 % (11.5-14.5)
[2019-06-18 07:00] LABS: WBC 10.3 10x3/uL (4.8-10.8)
[2019-06-18 07:04] LABS: ANION GAP 16.9 mmol/L (8-16); BILIRUBIN - TOTAL 0.64 mg/dL (0.2-1.3); CALCIUM 9.1 mg/dL (8.5-10.1); CARBON DIOXIDE 20.8 mmol/L (21.0-32.0); CREATININE - SERUM 1.8 mg/dL (0.6-1.3); POTASSIUM - SERUM 3.7 mmol/L (3.5-5.1); PROTEIN - SERUM 6.6 g/dL (6.4-8.2)
[2019-06-18] MEDS ORDERED: HYDROCODON-ACE1 EA10 PO (07:46)
--- NOTE | 2019-06-18 07:55 | NUR ---
ROUSES TO VERBAL STIMULATION. ORIENTED TO SELF. ATTEPTS TO REORIENT WITHOUT SUCCESS. SLING IN PLACE TO LEFT SHOULDER. DRESSING TO SAME DRY AND INTACT. LUNGS ARE CLEAR BILATERALLY, NO COGUH NOTED. SKIN IS INTACT WITHOUT REDNESS EXCEPT SOME POPPED BLISTER AREAS TO LEFT SHOULDER, RIGHT GREAT TOE WOUND, AND RIGHT ARM WOUNDS WHICH ALL HAVE DRY INTACT DRESSING IN PLACE. IV TO RIGHT FOREARM IS PATENT WITHOUT REDNESS AT INSERTION SITE. DENIES NEEDS.
--- NOTE | 2019-06-18 09:00 | NUR ---
REFUSED TO EAT BREAKFAST BECAUSE STAFF WON'T TAKE HIM OUTSIDE TO SMOKE. WILL MONITOR.
--- NOTE | 2019-06-18 09:51 | MORECARE ---
CASE MANAGEMENT DISCHARGE SUMMARY PATIENT: BEE GARNER UNIT: [id number] ADM DATE: 06/10/19 AGE: 79 : 40 SEX: M ROOM/BED: D.2232 AUTHOR: RENAN CUEVA PHYSICIAN: REFERRING PHYSICIAN: NIDIA JIMENEZ MD DATE OF SERVICE: 06/18/19 Discharge Plan Patient Name: BEE GARNER [facility] [facility] 1940 Planned Disposition: Anticipated Discharge Date: Discharge Date: Expected LOS: Initial Reviewer: [email or web address] Initial Review Date: 06/10/2019 Generated: 06/18/19 10:51 am External Providers External Provider: [facility] Next Contact Date: Service Request Date: Service Type: Resolution: Reviewer: Comments: External Provider: [facility] Next Contact Date: Service Request Date: Service Type: Resolution: Reviewer: Comments: Patient Name: BEE GARNER Page [phone] at 0951 All edits/amendments must be made on the electronic document DICTATION DATE: 06/18/19949 DIRECTOR OF CARDIAC CATH LAB: DULCE 06/18/1950 RPT#: [id number] DC DATE: STATUS: ADM IN [facility] [address] [place] [address] END OF REPORT
--- NOTE | 2019-06-18 10:02 | MORECARE ---
CASE MANAGEMENT DISCHARGE SUMMARY PATIENT: BEE GARNER UNIT: [id number] ADM DATE: 06/10/19 AGE: 79 : 40 SEX: M ROOM/BED: D.2232 AUTHOR: RENAN CUEVA PHYSICIAN: REFERRING PHYSICIAN: NIDIA JIMENEZ MD DATE OF SERVICE: 06/18/19 Discharge Plan Patient Name: BEE GARNER [facility] [facility] 1940 Planned Disposition: Anticipated Discharge Date: Discharge Date: Expected LOS: Initial Reviewer: [email or web address] Initial Review Date: 06/10/2019 Generated: 06/18/19 11:02 am Comments DCP- Discharge Planning Updated by [email or web address]: Sofie Aguillon on 06/18/19 8:[address] Patient Name: BEE GARNER Admission Status: ER Accout number: [id number] Admission Date: 06-10-2019 : 1940 Admission Diagnosis:OTH DISP FX OF UPPER END OF LEFT HUMERUS, INIT FOR CLOS Attending: NIDIA JIMENEZ Current LOS: 8 Anticipated DC Date: Planned Disposition: Primary Insurance: [facility] MEDICARE SOLUTIONS Discharge Planning Comments: CM SPOKE WITH VIKTORIYA OF [facility] AND SHE IS WORKING ON THE REFERRAL FOR SNF. HE WAS WITH HOSPICE BUT WILL NEED SNF BEFORE BACK TO THEM. CM WILL FOLLOW AND ASSIST. DOCUMENTS FAXED TO VIKTORIYA YESTERDAY. CM WILL SEND ADDITIONAL DOCUMENTS TODAY. Lead Applier: Sofie Aguillon Last DP export: 06/18/19 8:51 a Patient Name: BEE GARNER Page 21986 at 1002 All edits/amendments must be made on the electronic document DICTATION DATE: 06/18/19 1002 CHILD CARE AIDE: DULCE 06/18/19 1002 RPT#: [id number] DC DATE: STATUS: ADM IN [facility] [address] [place] [address] END OF REPORT
--- NOTE | 2019-06-18 11:00 | NUR ---
NICOTINE PATCH PLACED PER ORDERS. PATIENT UP IN CHAIR AT BEDSIDE PER PT. MUCH MORE COOPERATIVE AT THIS TIME.
--- NOTE | 2019-06-18 11:37 | NUR ---
PT STATES HIS BOTTOM DENTURE PLATE IS MISSISNG. THINKS HE LEFT IT ON THE TRAY YESTERDAY. DIETARY CALLED TO WATCH FOR TEETH. TOP DENTURE IS IN THE MOUTH OF THE PATIENT. ALSO STATES THAT HIS JEWERLY IS MISSING FROM TOP DRAWER BESIDE BED. PT HAD COMPANY YESTERDAY AND THINKS THEY TOOK IT. HIS WATCH IS ON HIS RIGHT ARM AND HIS GLASSES ON HIS FACE. HE WILL ASK HIS FRIENDS IF THEY HAVE HIS JEWERLY AND LET US KNOW.
--- NOTE | 2019-06-18 12:00 | NUR ---
FSBS 143. NO COVERAGE REQUIRED. DENIES NEEDS. VERY COOPERATIVE.
--- NOTE | 2019-06-18 12:08 | MORECARE ---
CASE MANAGEMENT DISCHARGE SUMMARY PATIENT: BEE GARNER UNIT: [id number] ADM DATE: 06/10/19 AGE: 79 : 40 SEX: M ROOM/BED: D.2232 AUTHOR: RENAN CUEVA PHYSICIAN: REFERRING PHYSICIAN: NIDIA JIMENEZ MD DATE OF SERVICE: 06/18/19 Discharge Plan Patient Name: BEE GARNRE Facility: [facility]:[place] : 1940 Planned Disposition: Anticipated Discharge Date: Discharge Date: Expected LOS: Initial Reviewer: [email or web address] Initial Review Date: 06/10/2019 Generated: 06/18/19 1:08 pm Comments DCP- Discharge Planning Updated by [email or web address]: Sofie Aguillon on 06/18/19 8:[address] Patient Name: BEE GARNER Admission Status: ER Accout number: [id number] Admission Date: 06-10-2019 : 1940 Admission Diagnosis:OTH DISP FX OF UPPER END OF LEFT HUMERUS, INIT FOR CLOS Attending: NIDIA JIMENEZ Current LOS: 8 Anticipated DC Date: Planned Disposition: Primary Insurance: [facility] MEDICARE SOLUTIONS Discharge Planning Comments: CM SPOKE WITH VIKTORIYA OF [facility] AND SHE IS WORKING ON THE REFERRAL FOR SNF. HE WAS WITH HOSPICE BUT WILL NEED SNF BEFORE BACK TO THEM. CM WILL FOLLOW AND ASSIST. DOCUMENTS FAXED TO VIKTORIYA YESTERDAY. CM WILL SEND ADDITIONAL DOCUMENTS TODAY. Cytology Technologist: Sofie Aguillon External Providers External Provider: [facility] Next Contact Date: Service Request Date: Service Type: Resolution: Reviewer: Comments: Last DP export: 06/18/19 9:02 a Patient Name: BEE GARNER Page [phone] at 1208 All edits/amendments must be made on the electronic document DICTATION DATE: 06/18/191206 EXTRUSION TECHNICIAN: DULCE 06/18/19 1207 RPT#: [id number] DC DATE: STATUS: ADM IN [facility] [address] [place] [address] END OF REPORT
--- NOTE | 2019-06-18 12:35 | NUR ---
OT NOTE: PT REQUIRED MOD ASSIST FOR SUPINE TO SIT. CGA FOR EOB SITTING. POOR BALANCE FOR DYNAMIC SITTING. SIMPLE GROOMING TASKS WITH MIN ASSIST. PT CONTINUES WITH LARGE AMOUNT OF SOFT BM.. TOTAL ASSIST WITH TOILET HYGIENE AND IS UNAWARE THAT HE HAS HAD INCONT EPISODE OF BOWEL AND BLADDER. TRANSFER TO CHAIR WITH MAX ASSIST. WHEN UP IN CHAIR, PT STILL EXHIBITS POOR TRUNK STRENGTH AND REQUIRES PILLOWS ON EACH SIDE TO KEEP IN UPRIGHT POSITION. UE AROM EXS WITH R UE WHILE IN CHAIR. ANNIE BERG, OTR/L
--- NOTE | 2019-06-18 14:07 | NUR ---
NUTRITION F/U CHART REVIEWED. PT UP TO CHAIR. POOR PO INTAKE RECENT MEALS. WILL CONTINUE TO PROVIDE DIET, MONITOR PO INTAKE. WILL ADD GLUCERNA SHAKE TO MEALS. RD FOLLOWING
--- NOTE | 2019-06-18 14:52 | NUR ---
OT NOTE: PT REQUIRED MOD A WITH HYGIENE TASKS. PT COMPLETED BED MOB TASKS WITH MOD A . PT COMPLETED SIT TO STAND WITH MOD A. PT FAMILY REPORTED TO NURSING THAT HEARING AIDS, DENTURES, AND JEWELERY IS MISSING. DUY MCDANIEL COTA
--- NOTE | 2019-06-18 16:13 | NUR ---
PATIENT FOUND WITH IV LYING IN BED CATHETER INTACT. RESITED TO RIGHT FOREARM AFTER 2 ATTEMPTS WITH 22G. TOLERATED WELL. DENIES NEEDS.
--- NOTE | 2019-06-18 16:45 | NUR ---
FSBS 144. NO COVERAGE REQUIRED.
--- NOTE | 2019-06-18 18:56 | NUR ---
ATE ALL OF SUPPER HE WANTED. SAID MEAT DIDN'T TASTE GOOD. INCONTINENT OF STOOL. SKIN CARE PER STAFF. REPOSITIONED IN BED FOR COMFORT. DENIES NEEDS.
--- NOTE | 2019-06-18 20:30 | NUR ---
NURSE ASSISTANCE ALERTED ME THAT THE PT O2 WAS 79%. WENT IN TO SEE PT. ALERT AND ORIENTED. SOME SHORTNESS OF BREATH. 3LO2 NASAL CANNULA. WENT UP TO 5LO2. CALLED RT. PT O2 STILL AT 79 80%. WENT TO 9LO2 CALLED A RAPID. OTHER VITALS STABLE. PT ALERT AND AWAKE THE WHOLE TIME. PT ALSO STATED LT SIDE CHEST PAIN WHEN TAKING A DEEP BREATH. FINALLY GOT 96% ON 100% NON REBREATHER MASK.
[2019-06-18 21:19] LABS: CKMB 2.2 U/L (0.0-3.6); CREATINE KINASE 62 UL (21-232); TROPONIN-I < 0.017 ng/mL (0.000-0.060)
--- NOTE | 2019-06-18 21:45 | NUR ---
REC'D TO ROOM 2302, S/P RAPID RESPONSE. TRANSFERRED TO BED, ICU MONITORS ESTAB. PT INCONT OF URINE, PARAS-CARE PROVIDED. PT AWAKE, BARROW, DROWSY, ANSWERS QUESTIONS APPROP. VSS. O2 100% NRB, POX 99%. ALARMS ON AND C/L IN REACH.
--- NOTE | 2019-06-18 22:12 | NUR ---
ABGS RESULTED AND CALLED TO Navjot HOWE APN. O2 TO HF NC 7L - WILL WEAN TOLERATED.
--- NOTE | 2019-06-18 22:25 | NUR ---
TOOK PT TO ICU PER DR ORDER. PT STILL ALERT AND ORINETED. ON 100% NON REBREATHER.
--- NOTE | 2019-06-18 23:57 | NUR ---
ATTEMPTED TO NOTIFY FAMILY OF PT TRANSFER TO ICU. NO ANSWER AT THIS TIME. WILL TRY AGAIN LATER.
[2019-06-19] VITALS (22 sets, daily range): BP systolic 111–171; BP diastolic 51–87; Ht 190.5 cm; Wt 72.6 kg
--- NOTE | 2019-06-19 00:29 | NUR ---
SPOKE WITH NEPHEW WHOSE NAME IS ON THE CHART, UPDATE GIVEN.
--- NOTE | 2019-06-19 00:49 | NUR ---
PT REPOSITIONED UP IN BED TO L SIDE. PAD IS DRY. VSS. PT STATES "JUST LET ME SLEEP". ALARMS ON AND C/L IN REACH.
--- NOTE | 2019-06-19 03:03 | NUR ---
REASSESSMENT PER FLOWSHEET, NO ACUTE CHANGES. REPOSITIONED WITH PILLOWS. R HEEL BRIDGED. PT DENIES NEEDS. VSS.
[2019-06-19 04:45] LABS: CKMB 15.9 U/L (0.0-3.6); CREATINE KINASE 122 UL (21-232)
[2019-06-19 04:47] LABS: TROPONIN-I 6.276 ng/mL (0.000-0.060)
--- NOTE | 2019-06-19 04:53 | NUR ---
COMPLETE BATH AND LINEN CHANGE DONE. PT REPOSITIONED UP IN BED. PT COOPERATIVE. VSS. CONT TO WEAN FIO2 TOLERATED. PT USES C/L. ALARMS ON.
--- NOTE | 2019-06-19 05:10 | NUR ---
CRITICAL TROP LEVEL CALLED TO Navjot HOWE APN. NEW ORDER REC'D TO CONSULT CARDIOLOGY.
--- NOTE | 2019-06-19 06:30 | NUR ---
DR. FERNANDEZ PAGED RE: CONSULT.
[2019-06-19 06:42] LABS: BASOPHILS 0.2 % (0-2); EOSINOPHILS 0.8 % (0-7); HEMATOCRIT 28.1 % (42.0-54.0); HEMOGLOBIN 9.2 g/dL (13.5-17.5); IMMATURE GRANULOCYTES 0.6 % (0-5); LYMPHOCYTES 12.4 % (15-50); MCH 30.7 pg (26.0-34.0); MCHC 32.7 g/dL (31.0-37.0); MCV 93.7 fL (80.0-100.0); MONOCYTES 10.7 % (2-11); NEUTROPHILS 75.3 % (40-80); PLATELET COUNT 244 10x3/uL (130-400); WBC 11.8 10x3/uL (4.8-10.8)
[2019-06-19 07:10] LABS: ALBUMIN 2.9 g/dL (3.4-5.0); ANION GAP 17.9 mmol/L (8-16); BILIRUBIN - TOTAL 0.78 mg/dL (0.2-1.3); CALCIUM 8.8 mg/dL (8.5-10.1); CARBON DIOXIDE 19.2 mmol/L (21.0-32.0); CREATININE - SERUM 1.9 mg/dL (0.6-1.3); MAGNESIUM - SERUM 2.2 mg/dL (1.8-2.4); PHOSPHOROUS 3.5 mg/dL (2.5-4.9); POTASSIUM - SERUM 4.1 mmol/L (3.5-5.1)
--- NOTE | 2019-06-19 07:10 | NUR ---
REPORT GIVEN. NO RETURN CALL FROM DR. FERNANDEZ YET.
--- NOTE | 2019-06-19 07:15 | NUR ---
DR. FERNANDEZ NOTIFIED OF CONSULT, STATUS REPORT GIVEN.
[2019-06-19 07:18] LABS: INR 1.35 (0.85-1.17); PROTIME 16.1 SECONDS (11.6-15.0)
[2019-06-19 07:19] LABS: APTT 52.2 SECONDS (22.8-39.4)
--- NOTE | 2019-06-19 07:20 | NUR ---
SHIFT REPORT RECEIVED. PT VERY HARD OF HEARING. CONFUSED. DISORIENTED TO TIME AND SITUATION. HE HAS A HISTORY OF A LEFT BKA. HE HAD AN ORIF TO HIS LEFT SHOULDER BY DR LIZARRAGA 8 DAYS AGO. DRESSING C/D/I. SLING ON. IV TO RIGHT FOREARM. HEAD TO TOE ASSESSMENT DONE. BED ALARM ON. O2 AT 5L.
--- NOTE | 2019-06-19 09:37 | NUR ---
PT INCONTINENT OF BOWEL AND BLADDER. PT CLEANED UP. BARRIER CREAM APPLIED TO BUTTOCK AND SCROTUM. PT REPOSITIONED IN BED. DR FERNANDEZ ROUNDED ON PT AND RECOMMENDS HE BE TRANSFERRED BACK TO THE FLOOR.
[2019-06-19 10:16] LABS: CKMB 16.6 U/L (0.0-3.6); CREATINE KINASE 122 UL (21-232)
[2019-06-19 10:20] LABS: TROPONIN-I 5.668 ng/mL (0.000-0.060)
--- NOTE | 2019-06-19 11:26 | NUR ---
DR FERNANDEZ SPOKE WITH DR MARQUIS AND STATED THAT HE IS OKAY WITH PT BEING TRANSFERRED TO FLOOR, ALSO.
--- NOTE | 2019-06-19 12:28 | NUR ---
DR MARQUIS IN WITH PT AT THIS TIME. FAMILY AT BEDSIDE. HOSPICE FAXING OVER POA AND DNR STATUS TO CASE MANAGEMENT. PT INCONTINENT OF BOWEL AND BLADDER. PT CLEANED UP AND LINENS CHANGED PRIOR TO FAMILY AND DR MARQUIS ENETERING ROOM.
--- NOTE | 2019-06-19 12:50 | MORECARE ---
CASE MANAGEMENT DISCHARGE SUMMARY PATIENT: BEE GARNER UNIT: [id number] ADM DATE: 06/10/19 AGE: 79 : 40 SEX: M ROOM/BED: D.2302 AUTHOR: RENAN CUEVA PHYSICIAN: REFERRING PHYSICIAN: NIDIA JIMENEZ MD DATE OF SERVICE: 06/19/19 Discharge Plan Patient Name: BEE GARNER [facility] : 1940 Planned Disposition: Anticipated Discharge Date: Discharge Date: Expected LOS: Initial Reviewer: [id number] Initial Review Date: 06/10/2019 Generated: 06/19/19 1:49 pm Comments DCP- Discharge Planning Updated by [email or web address]: Sofie Aguillon on 06/18/19 8:[address] Patient Name: BEE GARNER Admission Status: ER Accout number: [id number] Admission Date: 06-10-2019 : 1940 Admission Diagnosis:OTH DISP FX OF UPPER END OF LEFT HUMERUS, INIT FOR CLOS Attending: NIDIA JIMENEZ Current LOS: 8 Anticipated DC Date: Planned Disposition: Primary Insurance: [facility] [employer] Discharge Planning Comments: CM SPOKE WITH VIKTORIYA OF [facility] AND SHE IS WORKING ON THE REFERRAL FOR SNF. HE WAS WITH HOSPICE BUT WILL NEED SNF BEFORE BACK TO THEM. CM WILL FOLLOW AND ASSIST. DOCUMENTS FAXED TO VIKTORIYA YESTERDAY. CM WILL SEND ADDITIONAL DOCUMENTS TODAY. Architectural Administrative Assistant: Sofie Aguillon External Providers [facility] Next Contact Date: Service Request Date: Service Type: Resolution: Reviewer: Comments: Last DP export: 06/18/19 11:08 a Patient Name: BEE GARNER Page 90648 at 1250 All edits/amendments must be made on the electronic document DICTATION DATE: 06/19/191248 ORIENTAL MEDICINE PRACTITIONER: DULCE 06/19/191248 RPT#: [id number] DC DATE: STATUS: ADM IN [facility] [address] [place] [address] END OF REPORT
--- NOTE | 2019-06-19 13:04 | MORECARE ---
CASE MANAGEMENT DISCHARGE SUMMARY PATIENT: BEE GARNER UNIT: [id number] ADM DATE: 06/10/19 AGE: 79 : 40 SEX: M ROOM/BED: D.2302 AUTHOR: HAMMAD,DOC PHYSICIAN: REFERRING PHYSICIAN: NIDIA JIMENEZ MD DATE OF SERVICE: 06/19/19 Discharge Plan Patient Name: BEE GARNER Facility: [facility]:[place] : 1940 Planned Disposition: Anticipated Discharge Date: Discharge Date: Expected LOS: Initial Reviewer: [id number] Initial Review Date: 06/10/2019 Generated: 06/19/19 2:04 pm Comments DCP- Discharge Planning Updated by [email or web address]: Sofie Aguillon on 06/19/19 12:[address] Patient Name: BEE GARNER Admission Status: ER Accout number: [id number] Admission Date: 06-10-2019 : 1940 Admission Diagnosis:OTH DISP FX OF UPPER END OF LEFT HUMERUS, INIT FOR CLOS Attending: NIDIA JIMENEZ Current LOS: 9 Anticipated DC Date: Planned Disposition: Primary Insurance: [facility] [employer] Discharge Planning Comments: CM SENT DONG ON 06/19/19 WAITING FOR RETURN FAX. PATIENT IS NOW IN ICU. DONG WILL NEED TO BE FAXED TO [facility] WHEN RECEIVED. Soil Science Professor: Sofie Aguillon DCP- Discharge Planning Updated by [id number]: Sofie Aguillon on 06/18/19 8:[address] Patient Name: BEE GARNER Admission Status: ER Accout number: [id number] Admission Date: 06-10-2019 : 1940 Admission Diagnosis:OTH DISP FX OF UPPER END OF LEFT HUMERUS, INIT FOR CLOS Attending: NIDIA JIMENEZ Current LOS: 8 Anticipated DC Date: Planned Disposition: Primary Insurance: [facility] [employer] Discharge Planning Comments: CM SPOKE WITH VIKTORIYA OF [facility] AND SHE IS WORKING ON THE REFERRAL FOR SNF. HE WAS WITH HOSPICE BUT WILL NEED SNF BEFORE BACK TO THEM. CM WILL FOLLOW AND ASSIST. DOCUMENTS FAXED TO VIKTORIYA YESTERDAY. CM WILL SEND ADDITIONAL DOCUMENTS TODAY. Soil Science Professor: Sofie Henna Last DP export: 06/19/19 11:50 a Patient Name: BEE GARNER Page 74735 at 1304 All edits/amendments must be made on the electronic document DICTATION DATE: 06/19/19 1304 SEWING MACHINE BOBBIN WINDER: DULCE 06/19/19 1304 RPT#: [id number] DC DATE: STATUS: ADM IN [facility] [address] [place] [address] END OF REPORT
--- NOTE | 2019-06-19 13:15 | NUR ---
TROPONIN ELEVATED. DECREASED FROM MORNING DRAW. DR MARQUIS AWARE OF ELEVATED ENZYMES. WILL CONTINUE TO MONITOR.
--- NOTE | 2019-06-19 14:00 | NUR ---
PT RESTING QUIETLY. POA ON FILE NOW (JEOVANY RUSH [phone]). VSS. WILL CONTINUE TO MONITOR.
[2019-06-19 15:31] LABS: CKMB 12.7 U/L (0.0-3.6); CREATINE KINASE 119 UL (21-232)
[2019-06-19 15:33] LABS: TROPONIN-I 4.779 ng/mL (0.000-0.060)
--- NOTE | 2019-06-19 16:45 | NUR ---
BS 139. NO INSULIN NEEDED. ENCOURAGED PT TO EAT. DRINKING GLUCERNA SHAKE AT THIS TIME. VSS. ROCEPHIN INFUSING. NO OTHER NEEDS AT THIS TIME.
--- NOTE | 2019-06-19 17:01 | MORECARE ---
CASE MANAGEMENT DISCHARGE SUMMARY PATIENT: BEE GARNER UNIT: [id number] ADM DATE: 06/10/19 AGE: 79 : 40 SEX: M ROOM/BED: D.2302 AUTHOR: HAMMADDOC PHYSICIAN: REFERRING PHYSICIAN: NIDIA JIMENEZ MD DATE OF SERVICE: 06/19/19 Discharge Plan Patient Name: BEE GARNER Facility: [facility]:[place] : 1940 Planned Disposition: Anticipated Discharge Date: Discharge Date: Expected LOS: Initial Reviewer: [email or web address] Initial Review Date: 06/10/2019 Generated: 06/19/19 6:00 pm Comments DCP- Discharge Planning Updated by [id number]: Sofie Aguillon on 06/19/19 3:[address] Patient Name: BEE GARNER Admission Status: ER Accout number: [id number] Admission Date: 06-10-2019 : 1940 Admission Diagnosis:OTH DISP FX OF UPPER END OF LEFT HUMERUS, INIT FOR CLOS Attending: NIDIA JIMENEZ Current LOS: 9 Anticipated DC Date: Planned Disposition: Primary Insurance: [facility] [employer] Discharge Planning Comments: CM SENT DONG ON 06/19/19 WAITING FOR RETURN FAX. PATIENT IS NOW IN ICU. DONG WILL NEED TO BE FAXED TO [facility] WHEN RECEIVED. Cloth Laminating Supervisor: Sofie Aguillon Appended by Sofie Aguillon on 06/19/2019 16:55 CDT: I MET WITH MR. GARNER TODAY AND HIS POA JEOVANY ALONG WITH HOSPICE HOME CARE TI. MR. GARNER STATES HE WANTS TO REVOKE HOSPICE AND GO TO SNF WHEN MEDICALLY STABLE. HE SIGNED THE PAPERS FOR REVOCATION WITH TI. TO FOLLOW AND ASSIST. Appended by Sofie Aguillon on 06/19/2019 16:58 CDT: DONG FAXED TO [facility]. DCP- Discharge Planning Updated by [id number]: Sofie Aguillon on 06/18/19 8:[address] Patient Name: BEE GARNER Admission Status: ER Accout number: [id number] Admission Date: 06-10-2019 : 1940 Admission Diagnosis:OTH DISP FX OF UPPER END OF LEFT HUMERUS, INIT FOR CLOS Attending: NIDIA JIMENEZ Current LOS: 8 Anticipated DC Date: Planned Disposition: Primary Insurance: [facility] [employer] Discharge Planning Comments: CM SPOKE WITH VIKTORIYA OF [facility] AND SHE IS WORKING ON THE REFERRAL FOR SNF. HE WAS WITH HOSPICE BUT WILL NEED SNF BEFORE BACK TO THEM. CM WILL FOLLOW AND ASSIST. DOCUMENTS FAXED TO VIKTORIYA YESTERDAY. CM WILL SEND ADDITIONAL DOCUMENTS TODAY. Cloth Laminating Supervisor: Sofie Lan DP export: 06/19/19 12:04 p Patient Name: BEE GARNER Page 98568 at 1701 All edits/amendments must be made on the electronic document DICTATION DATE: 06/19/191699 POCKET CUTTER: DULCE 06/19/191699 RPT#: [id number] DC DATE: STATUS: ADM IN [facility] [address] [place] [address] END OF REPORT
--- NOTE | 2019-06-19 17:06 | CN ---
PATIENT NAME:BEE LUNA MEDICAL RECORD: [id number] : 40 LOCATION:SARINAD.2302 ADMIT DATE: 06/10/19 ACCOUNT: [id number] CONSULTING PHYSICIAN: SANDER MARQUIS MD REFERRING PHYSICIAN: NIDIA JIMENEZ MD DATE OF CONSULTATION: 06/19/2019 DIAGNOSES: 1. Non-Q-wave myocardial infarction. 2. Coronary artery disease. 3. Chronic obstructive pulmonary disease. 4. Smoking history. 5. Hypertension. HISTORY OF PRESENT ILLNESS: Mr. Luna is here for a humerus fracture. He has severe COPD, has been on hospice secondary to his end-stage COPD. He was on the orthopedic floor, had respiratory distress last night. His breathing is back to baseline even though his baseline is significant shortness of breath. He denies any chest pain or chest discomfort. His troponin is elevated. He has no previous cardiac history. PHYSICAL EXAMINATION: CONSTITUTIONAL/GENERAL APPEARANCE: Well nourished, well developed, appears stated age. EYES: Lids and conjunctivae noninjected. No discharge. No pallor. ENT: Lips within normal limit. No cyanosis. No pallor. NECK: Carotid arteries, bilateral normal upstroke. No bruits. No thrills. No jugular venous pressure or distention. CERVICAL LYMPH NODES: Nontender. Nonenlarged. THYROID: Not enlarged. No nodules. CARDIOVASCULAR: Precordial exam, nondisplaced. No heaves or pericardial thrills. Rate and rhythm, regular. Heart sounds, normal S1, normal S2. No S3, no gallop, no rub. Systolic murmur, not heard. Diastolic murmur, not heard. RESPIRATORY: Respiratory effort, unlabored. Normal curvature. No thoracic deformity. No chest wall tenderness. Percussion, resonant. Auscultation, clear. No wheezes, no rales, no rhonchi. ABDOMEN: Soft, nondistended, nontender. No abdominal pain, no vomiting and normal appetite. MUSCULOSKELETAL: No joint tenderness, normal gait, normal tone. SKIN: Warm and dry. OVERALL IMPRESSION: Non-Q-wave myocardial infarction. I have discussed at length with he and his family options of invasive versus medical management. He is going back on hospice and does not want any invasive procedures. Hence, it will be medical management. He is already on an aspirin. He is on atenolol, this is not the best beta-harjit for him secondary to possible bronchospasm associated with that beta-harjit and has severe chronic obstructive pulmonary disease. We will change him to Bystolic 10 mg a day. This will give better heart rate and blood pressure control. We will also add a Nitro-Dur patch, this may improve his shortness of breath in light of his hemodynamically significant coronary artery disease and prevent ongoing extension of his myocardial infarction. Hopefully, no other cardiac workup or treatment is necessary. TRANSINT:[id number] Voice Confirmation ID: [id number] DOCUMENT ID: [id number] CONSULT REPORT [id number] BEE LUNA, SANDER DIOP at 1706 CC: [id number] DICTATION DATE: 06/19/19 1235 MANGANESE WHEELER: 06/19/19 1322 ADM IN [place] [id number] [place] [id number]
--- NOTE | 2019-06-19 18:05 | NUR ---
PT RESTING QUIETLY. VSS. DENIES CHEST PAIN. WILL CONTINUE TO MONITOR.
--- NOTE | 2019-06-19 18:40 | NUR ---
PT INCONTINENT OF BOWEL. PT CLEANED AND LINENS CHANGED. VSS. DENIES CHEST PAIN.
--- NOTE | 2019-06-19 19:00 | NUR ---
SHIFT ASSESSMENT COMPLETE. VSS, NO SIGNS OF ACUTE DISTRESS NOTED. 100% O2 SAT ON 5L HIGH FLOW NC. DENIES NEEDS AT THIS TIME. WILL CONTINUE TO MONITOR.
--- NOTE | 2019-06-19 21:00 | NUR ---
MEDS GIVEN PER MAR. REPOSITIONING COMPLETE. DENIES NEEDS AT THIS TIME.
--- NOTE | 2019-06-19 23:00 | NUR ---
REASSESSMENT COMPLETE. VSS, NO SIGNS OF ACUTE DISTRESS NOTED. PT SLEEPING. WILL MONITOR.
[2019-06-20] VITALS (12 sets, daily range): BP systolic 100–132; BP diastolic 47–68
--- NOTE | 2019-06-20 01:00 | NUR ---
PT SLEEPING. VSS, NO SIGNS OF ACUTE DISTRESS NOTED. WILL CONTINUE TO MONITOR.
--- NOTE | 2019-06-20 03:00 | NUR ---
REASSESSMENT COMPLETE. VSS, NO SIGNS OF ACUTE DISTRESS NOTED. CHG BATH, COMPLETE LINEN CHANGE. DENIES NEEDS AT THIS TIME.
[2019-06-20 03:15] LABS: BASOPHILS 0.2 % (0-2); EOSINOPHILS 1.1 % (0-7); HEMOGLOBIN 9.2 g/dL (13.5-17.5); IMMATURE GRANULOCYTES 0.4 % (0-5); LYMPHOCYTES 11.7 % (15-50); MCH 30.8 pg (26.0-34.0); MCHC 32.9 g/dL (31.0-37.0); MCV 93.6 fL (80.0-100.0); MEAN PLATELET VOLUME 8.7 fL (7.4-10.4); MONOCYTES 9.9 % (2-11); NEUTROPHILS 76.7 % (40-80); PLATELET COUNT 216 10x3/uL (130-400); RBC 2.99 10x6/uL (4.20-6.10); RDW 15.4 % (11.5-14.5); WBC 12.3 10x3/uL (4.8-10.8)
[2019-06-20 03:31] LABS: ALBUMIN 2.6 g/dL (3.4-5.0); ANION GAP 15.1 mmol/L (8-16); BILIRUBIN - TOTAL 0.58 mg/dL (0.2-1.3); CALCIUM 8.5 mg/dL (8.5-10.1); CARBON DIOXIDE 21.7 mmol/L (21.0-32.0); CREATININE - SERUM 1.6 mg/dL (0.6-1.3); MAGNESIUM - SERUM 1.9 mg/dL (1.8-2.4); PHOSPHOROUS 2.9 mg/dL (2.5-4.9); POTASSIUM - SERUM 3.8 mmol/L (3.5-5.1); PROTEIN - SERUM 6.4 g/dL (6.4-8.2)
--- NOTE | 2019-06-20 05:00 | NUR ---
PT SLEEPING. VSS, NO SIGNS OF ACUTE DISTRESS NOTED. WILL CONTINUE TO MONITOR.
--- NOTE | 2019-06-20 07:00 | NUR ---
PATIENT RESTING IN BED C VSS. WAKES TO VOICE. O2 AT 3L NC. LEFT ARM IN SLING. NO COMPLAINTS OF PAIN. WILL CONTINUE TO MONITOR
--- NOTE | 2019-06-20 09:00 | NUR ---
PATIENT NOT INTERESTED IN BREAKFAST. GAVE GLUCERNA AND ENCOURAGED TO DRINK.
--- NOTE | 2019-06-20 09:55 | NUR ---
DR. MORENO MADE ROUNDS. SAID OKAY TO TRANSFER TO FLOOR
--- NOTE | 2019-06-20 12:59 | NUR ---
PATIENT HAD INCONTINENT BM. NURSE CLEANED AND CHANGED ALL LINENS
--- NOTE | 2019-06-20 14:50 | NUR ---
CALLED REPORT REPORT TO MED 2 NURSE. TRANSFERRING TO ROOM [id number]
--- NOTE | 2019-06-20 14:51 | NUR ---
RECEIVED REPORT ON PATIENT. PATIENT TO UNIT SOON.
--- NOTE | 2019-06-20 15:27 | NUR ---
CALLED REPORT TO MED SURG NURSE. TRANSFERRING TO 0123
--- NOTE | 2019-06-20 15:32 | NUR ---
MATTHEW REPORT FROM NEETU IN ICU, PT IS ORIENTED, VSS. PT IS TO BE BACK ON HOSPICE ONCE ON FLOOR WILL SPEAK TO HS IN REGARDS TO THIS, ASSUME PT CARE. HOMER
--- NOTE | 2019-06-20 19:15 | NUR ---
PT ALERT AND ORIENTED WITH HOB ELEVATED WHEN ENTERING THE ROOM. PATIENT HAS LEFT ARM IN SLING. LEFT CHEST HAS SCABS. PATIENT IS HARD OF HEARING. NO HEARING AIDS PRESENT AT THIS TIME. RESPONDS APPROPRIATELY WHEN PATIENT CAN HEAR. PT LEFT LEG PRESENTS WITH BKA. RIGHT FOOT HAS DRESSING TO THE GREAT TOE THAT IS CLEAN AND DRY. PATIENT WEARING 3L HIGH FLOW NASAL CANNULA. HAS RIGHT FOREARM IV THAT IS PATENT AND INFUSING 1/2 NS @ 75. DENIES PAIN AT THIS TIME. REPOSITIONED PATIENT IN BED. CALL LIGHT IN REACH.
--- NOTE | 2019-06-20 21:10 | NUR ---
ENCOURAGED PATIENT TO GET UP TO CHAIR PER DOCTOR ORDER. PATIENT REFUSED AT THIS TIME. PATIENT INCONTINENT OF URINE. BED CHANGED PERFORMED. DENIES PAIN AT THIS TIME. CALL LIGHT IN REACH.
[2019-06-21 00:32] VITALS: BP 120/61
--- NOTE | 2019-06-21 01:07 | NUR ---
RESTING WITH EYES CLOSED AND HOB ELEVATED. NO DISTRESS NOTED AT THIS TIME.
--- NOTE | 2019-06-21 03:00 | NUR ---
I have reviewed this patient and I concur with the Shift Assessment completed by the Licensed Practical Nurse today this shift.
[2019-06-21 04:37] VITALS: BP 120/61
[2019-06-21 05:25] LABS: BASOPHILS 0.4 % (0-2); EOSINOPHILS 1.9 % (0-7); HEMATOCRIT 28.4 % (42.0-54.0); HEMOGLOBIN 9.2 g/dL (13.5-17.5); IMMATURE GRANULOCYTES 0.4 % (0-5); LYMPHOCYTES 17.7 % (15-50); MCH 30.5 pg (26.0-34.0); MCHC 32.4 g/dL (31.0-37.0); MONOCYTES 8.1 % (2-11); NEUTROPHILS 71.5 % (40-80); PLATELET COUNT 253 10x3/uL (130-400); RBC 3.02 10x6/uL (4.20-6.10); RDW 15.5 % (11.5-14.5)
[2019-06-21 05:50] LABS: WBC 7.3 10x3/uL (4.8-10.8)
[2019-06-21 05:53] LABS: ALBUMIN 2.6 g/dL (3.4-5.0); ANION GAP 15.2 mmol/L (8-16); BILIRUBIN - TOTAL 0.47 mg/dL (0.2-1.3); CALCIUM 8.6 mg/dL (8.5-10.1); CARBON DIOXIDE 21.6 mmol/L (21.0-32.0); CREATININE - SERUM 1.7 mg/dL (0.6-1.3); PHOSPHOROUS 3.1 mg/dL (2.5-4.9); POTASSIUM - SERUM 3.8 mmol/L (3.5-5.1); PROTEIN - SERUM 6.6 g/dL (6.4-8.2)
[2019-06-21 07:28] VITALS: BP 119/53
--- NOTE | 2019-06-21 09:00 | NUR ---
PT RESTING QUIETLY IN BED WITH EYES CLOSED. OPENS EYES UPON STAFF ENTERING ROOM. NO ACUTE DISTRESS NOTED. DRESSING C/D/I TO LEFT SHOULDER WITH SLING IN PLACE. IV TO RIGHT FOREARM WITH 1/2 NS @ 75ML/HR INFUSING VIA PUMP. SITE WITHOUT REDNESS OR EDEMA. DENIES PAIN AT THIS TIME. CL WITHIN REACH. CONTINUE POC
[2019-06-21 12:52] VITALS: BP 111/53
[2019-06-21 18:24] VITALS: BP 135/67
[2019-06-21 20:00] VITALS: BP 113/62
--- NOTE | 2019-06-21 22:10 | NUR ---
WOKE PT UP FOR MEDS. PT AGITATED AND CONFUSED. STATES "I ALREADY TOOK THOSE PILLS." I EXPLAINED TO HIM THAT HE HAD NOT TAKEN HIS NIGHT MEDS YET. HE ARGUED A LITTLE MORE THEN DECIDED TO TAKE THE PO MEDS I WAS GIVING HIM. WHEN I EXPLAINED TO HIM I WAS GOING TO GIVE HIM HIS LOVENOX SHOT, HE HELD UP HIS ARM MAKING A FIST AND SAID, "THE NEXT PERSON THAT COMES IN HERE TRYING TO STICK A NEEDLE IN ME IS GONNA GET PUNCHED IN THE FACE AND I'M TELLING YOU I CAN PUNCH REAL HARD! PEOLPLE HAVE BEEN STICKING ME ALL DAY!" I ASKED HIM IF HE WAS SERIOUS. HE SHOOK HIS FIST AT ME AND SAID "DON'T I LOOK SERIOUS?" AFTER EXPLAINING THE RISKS OF NOT TAKING THE MEDICINE HE DECIDED TO LET ME GIVE HIM THE SHOT. HE REFUSED HIS FSBS COMPLETELY. HE STATED, "NOW JUST LEAVE ME ALONE AND LET ME GET SOME SLEEP!" I THANKED HIM AND LEFT THE ROOM.
[2019-06-22 04:00] VITALS: BP 132/64
--- NOTE | 2019-06-22 05:26 | NUR ---
PT BATHED AND BED LINENS CHANGED BY PUMP ERECTOR'S. INCONTINENT BOWEL AND BLADDER. PT AWAKE DRINKING ORANGE JUICE. PT STATES HE HAS TO GET OUT OF THIS PLACE BECAUSE THEY ARE TRYING TO KILL HIM. TRIED TO REASSURE PT AND TALK SOOTHINGLY TO HIM. HE SAID, "YOU BETTER GET OUT HERE OR YOU'LL BE , TOO."
[2019-06-22 05:36] LABS: BASOPHILS 0.3 % (0-2); EOSINOPHILS 2.2 % (0-7); HEMATOCRIT 26.3 % (42.0-54.0); HEMOGLOBIN 8.7 g/dL (13.5-17.5); IMMATURE GRANULOCYTES 0.6 % (0-5); LYMPHOCYTES 19.2 % (15-50); MCH 30.5 pg (26.0-34.0); MCHC 33.1 g/dL (31.0-37.0); MCV 92.3 fL (80.0-100.0); MONOCYTES 7.7 % (2-11); PLATELET COUNT 250 10x3/uL (130-400); RBC 2.85 10x6/uL (4.20-6.10); RDW 15.2 % (11.5-14.5); WBC 7.2 10x3/uL (4.8-10.8)
[2019-06-22 05:52] LABS: ALBUMIN 2.7 g/dL (3.4-5.0); ANION GAP 14.9 mmol/L (8-16); BILIRUBIN - TOTAL 0.36 mg/dL (0.2-1.3); CALCIUM 8.7 mg/dL (8.5-10.1); CARBON DIOXIDE 21.1 mmol/L (21.0-32.0); CREATININE - SERUM 1.7 mg/dL (0.6-1.3); PHOSPHOROUS 3.3 mg/dL (2.5-4.9); PROTEIN - SERUM 5.8 g/dL (6.4-8.2)
--- NOTE | 2019-06-22 08:00 | NUR ---
PATIENT RESTING IN BED, VERY HARD OF HEARING. LEFT SHOULDER WITH SLING. IV PATENT TO RIGHT FOREARM WITH 1/2NS @75 INFUSING. PARANOID BEHAVIOR REPORTED BY PREVIOUS NURSE, NONE NOTED AT THIS TIME.
[2019-06-22 09:02] VITALS: BP 120/60
--- NOTE | 2019-06-22 10:18 | EC ---
PATIENT:BEE GARNER DATE OF SERVICE: 06/10/19 SEX: M MEDICAL RECORD: [id number] DATE OF : [birth year] LOCATION:D.MS [id number] AGE OF PATIENT: 79 ADMISSION DATE: 06/10/19 REFERRING PHYSICIAN: INTERPRETING PHYSICIAN: SANDER AARON MD ECHOCARDIOGRAM REPORT ECHO CHARGES 4 ECHO COMPLETE Date: 06/19/19 CLINICAL DIAGNOSIS: ELEVATED TROPONIN ECHOCARDIOGRAPHIC MEASUREMENTS (adult normal given) AC root (d.<3.7cm) 3.1 cm LV Septum d (<1.2 cm> 1.3 cm Valve Excursion 1.5 cm LV Septum (systole) 1.8 cm Left Atria (s.<4.0cm> 3.6 cm LVPW d(<1.2cm) 1.4 cm RV (d.<2.3cm) 3.9 cm LVPW (sytole) 1.8 cm LV diastole(<5.6CM) 5.3 cm MV E-F(>70mm/sec) cm LV systole 3.4 cm LVOT Diameter 2.1 cm MV exc.(>10mm) 1.1 cm Est.ejection fraction (50-75%) % DOPPLER: LVIT cm/sec A 118 cm/sec E 77.0 cm/sec LA cm/sec RVSP 43 mmHg LVOT 103 cm/sec AOP1/2T m/s Asc. Ao 115 cm/sec RVOT cm/sec RA cm/sec PA cm/sec AV Gradient Peak 5.25 mmHg AV Mean 2.45 mmHg AV Area 2.7 cm MV Gradient Peak 7.17 mmHg MV Mean 2.81 mmHg MV Area cm COMMENTS: Reaming Press Operator: Margarita LUCERO Supervisor Wet End: 1 Dr. Aaron TAPE# PACS Pericardial Effusion N DATE OF SERVICE: 06/19/2019 FINDINGS: 1. Left ventricular chamber size is within normal limits. Left ventricular systolic function is mildly reduced at 45% to 50%. 2. Left atrium is within normal limits at 3.6 cm. Right atrium and right ventricular chamber sizes are mildly dilated. 3. Valvular structures have normal structure and motion. 4. Doppler interrogation reveals mild mitral regurgitation and mild tricuspid regurgitation. No other valvular insufficiency or stenosis. Pulmonary systolic ECHOCARDIOGRAM REPORT [id number] BEE GARNER pressure is estimated at 43 mmHg. 5. No evidence of pericardial effusion or left ventricular thrombus. TRANSINT:[id number] Voice Confirmation ID: [id number] DOCUMENT ID: [id number] SANDER AARON MD at 1018 CC: [id number] DICTATION DATE: 06/19/19 1624 BATTERYMAN: 06/19/19 1741 ADM IN [facility] [address] [place] [address]
--- NOTE | 2019-06-22 11:59 | MORECARE ---
CASE MANAGEMENT DISCHARGE SUMMARY PATIENT: BEE GARNER UNIT: [id number] ADM DATE: 06/10/19 AGE: 79 : 40 SEX: M ROOM/BED: D.2232 AUTHOR: RENAN CUEVA PHYSICIAN: REFERRING PHYSICIAN: NIDIA JIMENEZ MD DATE OF SERVICE: 06/22/19 Discharge Plan Patient Name: BEE GARNER Facility: [facility]:[place] : 1940 Planned Disposition: Anticipated Discharge Date: Discharge Date: Expected LOS: Initial Reviewer: [email or web address] Initial Review Date: 06/10/2019 Generated: 06/22/19 12:58 pm Comments DCP- Discharge Planning Updated by [email or web address]: Suad Hendrix on 06/22/19 10:[address] Spoke with Viktoriya Kim and updated clinical faxed. Awaiting insurance authorization for admission to SNF ([facility]). Viktoriya states they have clinically accepted, just awaiting insurance auth. CM will continue to follow and assist with discharge planning/needs. DCP- Discharge Planning Updated by [id number]: Sofie Aguillon on 06/19/19 3:[address] Patient Name: BEE GARNER Admission Status: ER Accout number: [id number] Admission Date: 06-10-2019 : 1940 Admission Diagnosis:OTH DISP FX OF UPPER END OF LEFT HUMERUS, INIT FOR CLOS Attending: NIDIA JIMENEZ Current LOS: 9 Anticipated DC Date: Planned Disposition: Primary Insurance: [facility] [employer] SOLUTIONS Discharge Planning Comments: CM SENT DONG ON 06/19/19 WAITING FOR RETURN FAX. PATIENT IS NOW IN ICU. DONG WILL NEED TO BE FAXED TO [facility] WHEN RECEIVED. Commodity Manager: Sofie Aguillon Appended by Sofie Aguillon on 06/19/2019 16:55 CDT: I MET WITH MR. GARNER TODAY AND HIS POA JEOVANY ALONG WITH HOSPICE HOME CARE TI. MR. GARNER STATES HE WANTS TO REVOKE HOSPICE AND GO TO SNF WHEN MEDICALLY STABLE. HE SIGNED THE PAPERS FOR REVOCATION WITH TI. CM TO FOLLOW AND ASSIST. Appended by Sofie Aguillon on 06/19/2019 16:58 CDT: DONG FAXED TO [facility]. DCP- Discharge Planning Updated by [id number]: Sofie Aguillon on 06/18/19 8:[address] Patient Name: BEE GARNER Admission Status: ER Accout number: [id number] Admission Date: 06-10-2019 : 1940 Admission Diagnosis:OTH DISP FX OF UPPER END OF LEFT HUMERUS, INIT FOR CLOS Attending: NIDIA JIMENEZ Current LOS: 8 Anticipated DC Date: Planned Disposition: Primary Insurance: [facility] [employer] SOLUTIONS Discharge Planning Comments: CM SPOKE WITH VIKTORIYA [facility] AND SHE IS WORKING ON THE REFERRAL FOR SNF. HE WAS WITH HOSPICE BUT WILL NEED SNF BEFORE BACK TO THEM. CM WILL FOLLOW AND ASSIST. DOCUMENTS FAXED TO [facility] YESTERDAY. CM WILL SEND ADDITIONAL DOCUMENTS TODAY. Commodity Manager: Sofie Aguillon Last DP export: 06/19/19 4:00 p Patient Name: BEE GARNER Page 04603 at 1159 All edits/amendments must be made on the electronic document DICTATION DATE: 06/22/19 1158 FLAGSETTER: DULCE 06/22/19 1158 RPT#: [id number] DC DATE: STATUS: ADM IN [facility] [address] [place] [address] END OF REPORT
--- NOTE | 2019-06-22 12:55 | NUR ---
Nutrition follow-up: Pt being very ugly today. Diet: ADA consistent CHO with Glucerna Shake TID PO intake remains poor; pt refusing some meals Labs reviewed Wt: 160# Will continue to encourage increased po intake and honor food preferences. RDN following.
[2019-06-22 13:12] VITALS: BP 138/69
[2019-06-22] MEDS ORDERED: OMNICEF300 MG PO (15:19)
[2019-06-22] MEDS ORDERED: ZITHROMAX500 MG PO (15:19)
--- NOTE | 2019-06-22 15:30 | MORECARE ---
CASE MANAGEMENT DISCHARGE SUMMARY PATIENT: BEE GARNER UNIT: [id number] ADM DATE: 06/10/19 AGE: 79 : 40 SEX: M ROOM/BED: D.2232 AUTHOR: HAMMAD,DOC PHYSICIAN: REFERRING PHYSICIAN: NIDIA JIMENEZ MD DATE OF SERVICE: 06/22/19 Discharge Plan Patient Name: BEE GARNER Facility: [facility]:[place] : 1940 Planned Disposition: Anticipated Discharge Date: Discharge Date: Expected LOS: Initial Reviewer: [email or web address] Initial Review Date: 06/10/2019 Generated: 06/22/19 4:30 pm Comments DCP- Discharge Planning Updated by [email or web address]: Suad Hendrix on 06/22/19 2:[address] Authorization has been received for SNF. The breastfeeding educator is not ready to discharge yet due to worsening CXR. Dr. Oconnor states will repeat CXR and possibly discharge tomorrow. I informed Viktoriya Kim and Rafiq Ricketts. I called patient's medical POA and emergency contatct (Jessica Adames) and informed her that he may be discharged tomorrow. CM will continue to follow and assist with discharge planning/needs. DCP- Discharge Planning Updated by [id number]: Suad Hendrix on 06/22/19 10:[address] Spoke with Viktoriya Kim and updated clinical faxed. Awaiting insurance authorization for admission to SNF ([facility]). Viktoriya states they have clinically accepted, just awaiting insurance auth. CM will continue to follow and assist with discharge planning/needs. DCP- Discharge Planning Updated by [id number]: Sofie Aguillon on 06/19/19 3:[address] Patient Name: BEE GARNER Admission Status: ER Accout number: [id number] Admission Date: 06-10-2019 : 1940 Admission Diagnosis:OTH DISP FX OF UPPER END OF LEFT HUMERUS, INIT FOR CLOS Attending: NIDIA JIMENEZ Current LOS: 9 Anticipated DC Date: Planned Disposition: Primary Insurance: [facility] MEDICARE SOLUTIONS Discharge Planning Comments: CM SENT DONG ON 06/19/19 WAITING FOR RETURN FAX. PATIENT IS NOW IN ICU. DONG WILL NEED TO BE FAXED TO [facility] WHEN RECEIVED. Ambulance Operations Supervisor: Sofie Aguillon Appended by Sofie Aguillon on 06/19/2019 16:55 CDT: I MET WITH MR. GARNER TODAY AND HIS POA JESSICA ALONG WITH HOSPICE HOME CARE TI. MR. GARNER STATES HE WANTS TO REVOKE HOSPICE AND GO TO SNF WHEN MEDICALLY STABLE. HE SIGNED THE PAPERS FOR REVOCATION WITH TI. CM TO FOLLOW AND ASSIST. Appended by Sofie Aguillon on 06/19/2019 16:58 CDT: DONG FAXED TO [facility]. DCP- Discharge Planning Updated by [id number]: Sofie Aguillon on 06/18/19 8:[address] Patient Name: BEE GARNER Admission Status: ER Accout number: [id number] Admission Date: 06-10-2019 : 1940 Admission Diagnosis:OTH DISP FX OF UPPER END OF LEFT HUMERUS, INIT FOR CLOS Attending: NIDIA JIMENEZ Current LOS: 8 Anticipated DC Date: Planned Disposition: Primary Insurance: [facility] MEDICARE SOLUTIONS Discharge Planning Comments: CM SPOKE WITH VIKTORIYA OF [facility] AND SHE IS WORKING ON THE REFERRAL FOR SNF. HE WAS WITH HOSPICE BUT WILL NEED SNF BEFORE BACK TO THEM. CM WILL FOLLOW AND ASSIST. DOCUMENTS FAXED TO VIKTORIYA YESTERDAY. CM WILL SEND ADDITIONAL DOCUMENTS TODAY. Ambulance Operations Supervisor: Sofie Henna Coverage Notice Reviewer: [email or web address] Victor Hugo Hendrix Notice Issued Date-Time: 06/22/2019 15:13 Notice Type: IM Discharge Notice Notice Delivered To: Patient Relationship to Patient: Self Transportation Aid Name: Delivery Method: HAND - Hand Delivered Nohemi Days: Prior Verbal Notification: Recipient Understood Notice: Yes Recipient Signature: Yes Med Rec Note Co-signed by Attending: Coverage Notice Comment: IMM explained, signed, given, copy placed in MR Last DP export: 06/22/19 10:59 a Patient Name: BEE GARNER Page 45994 at 1530 All edits/amendments must be made on the electronic document DICTATION DATE: 06/22/19 1530 WELL SERVICING RIG OPERATOR: DULCE 06/22/19 1530 RPT#: [id number] DC DATE: STATUS: ADM IN [facility] [address] [place] [address] END OF REPORT
[2019-06-22 18:02] VITALS: BP 130/70
--- NOTE | 2019-06-22 19:45 | NUR ---
PT SITTING UP IN BED RESTING WITH EYES CLOSED, WITHOUT DISTRESS. LEFT ARM DRESSING CDI, SLING IN PLACE. IV RIGHT FA INFUSING 1/2NS @ 75. FALL PRECAUTIONS IN PLACE. CL IN REACH, WILL CTM
[2019-06-22 20:00] VITALS: BP 134/64
[2019-06-23 04:00] VITALS: BP 138/68
[2019-06-23 06:56] LABS: ANION GAP 15.3 mmol/L (8-16); CALCIUM 8.8 mg/dL (8.5-10.1); CARBON DIOXIDE 20.4 mmol/L (21.0-32.0); CREATININE - SERUM 1.6 mg/dL (0.6-1.3); PHOSPHOROUS 3.2 mg/dL (2.5-4.9); POTASSIUM - SERUM 3.7 mmol/L (3.5-5.1)
[2019-06-23 07:02] LABS: BASOPHILS 0.3 % (0-2); HEMATOCRIT 26.7 % (42.0-54.0); HEMOGLOBIN 8.7 g/dL (13.5-17.5); IMMATURE GRANULOCYTES 0.4 % (0-5); MCHC 32.6 g/dL (31.0-37.0); MCV 92.1 fL (80.0-100.0); MONOCYTES 6.7 % (2-11); NEUTROPHILS 76.6 % (40-80); PLATELET COUNT 274 10x3/uL (130-400); RDW 15.1 % (11.5-14.5); WBC 7.1 10x3/uL (4.8-10.8)
[2019-06-23 09:08] VITALS: BP 90/63
--- NOTE | 2019-06-23 10:46 | NUR ---
PATIENT RESTING IN BED, RESPIRATIONS NONLABORED 02 3L/NC. PATIENT DENIES PAIN. SLING INTACT TO LEFT UPPER EXTRIMITY.
--- NOTE | 2019-06-23 12:36 | MORECARE ---
CASE MANAGEMENT DISCHARGE SUMMARY PATIENT: BEE GARNER UNIT: [id number] ADM DATE: 06/10/19 AGE: 79 : 40 SEX: M ROOM/BED: D.2232 AUTHOR: HAMMAD,DOC PHYSICIAN: REFERRING PHYSICIAN: NIDIA JIMENEZ MD DATE OF SERVICE: 06/23/19 Discharge Plan Patient Name: BEE GARNER Facility: [facility]:[place] : 1940 Planned Disposition: Anticipated Discharge Date: Discharge Date: Expected LOS: Initial Reviewer: [id number] Initial Review Date: 06/10/2019 Generated: 06/23/19 1:35 pm Comments DCP- Discharge Planning Updated by [id number]: Suad Hendrix on 06/23/19 11:[address] Spoke with Balbir at [facility] and informed her patient was cleared for discharge by pulmonary (insurance coordinator spoke with Dr. Oconnor). She states she will need to see if his auth is still good and call me back. I informed Balbir that patient is on 3 liters [place] oxygen. CM will continue to follow and assist with discharge planning/needs. DCP- Discharge Planning Updated by [id number]: Suad Hendrix on 06/22/19 2:[address] Authorization has been received for SNF. The sizer machine is not ready to discharge yet due to worsening CXR. Dr. Oconnor states will repeat CXR and possibly discharge tomorrow. I informed Viktoriya Kim and Rafiq Ricketts. I called patient's medical POA and emergency contatct (Jessica Adames) and informed her that he may be discharged tomorrow. CM will continue to follow and assist with discharge planning/needs. DCP- Discharge Planning Updated by [id number]: Suad Hendrix on 06/22/19 10:[address] Spoke with Viktoriya Kim and updated clinical faxed. Awaiting insurance authorization for admission to SNF ([facility]). Viktoriya states they have clinically accepted, just awaiting insurance auth. CM will continue to follow and assist with discharge planning/needs. DCP- Discharge Planning Updated by [id number]: Sofie Aguillon on 06/19/19 3:[address] Patient Name: BEE GARNER Admission Status: ER Accout number: [id number] Admission Date: 06-10-2019 : 1940 Admission Diagnosis:OTH DISP FX OF UPPER END OF LEFT HUMERUS, INIT FOR CLOS Attending: NIDIA JIMENEZ Current LOS: 9 Anticipated DC Date: Planned Disposition: Primary Insurance: [facility] [employer] Discharge Planning Comments: CM SENT DONG ON 06/19/19 WAITING FOR RETURN FAX. PATIENT IS NOW IN ICU. DONG WILL NEED TO BE FAXED TO [facility] WHEN RECEIVED. Electric Meter Inspector: Sofie Aguillon Appended by Sofie Aguillon on 06/19/2019 16:55 CDT: I MET WITH MR. GARNER TODAY AND HIS POA JESSICA ALONG WITH HOSPICE HOME CARE TI. MR. GARNER STATES HE WANTS TO REVOKE HOSPICE AND GO TO SNF WHEN MEDICALLY STABLE. HE SIGNED THE PAPERS FOR REVOCATION WITH TI. CM TO FOLLOW AND ASSIST. Appended by Sofie Aguillon on 06/19/2019 16:58 CDT: DONG FAXED TO [facility]. DCP- Discharge Planning Updated by [id number]: Sofie Aguillon on 06/18/19 8:[address] Patient Name: BEE GARNER Admission Status: ER Accout number: [id number] Admission Date: 06-10-2019 : 1940 Admission Diagnosis:OTH DISP FX OF UPPER END OF LEFT HUMERUS, INIT FOR CLOS Attending: NIDIA JIMENEZ Current LOS: 8 Anticipated DC Date: Planned Disposition: Primary Insurance: [facility] [employer] Discharge Planning Comments: CM SPOKE WITH VI[facility]TORI[facility] AND SHE IS WORKING ON THE REFERRAL FOR SNF. HE WAS WITH HOSPICE BUT WILL NEED SNF BEFORE BACK TO THEM. CM WILL FOLLOW AND ASSIST. DOCUMENTS FAXED TO VIKTORIYA YESTERDAY. CM WILL SEND ADDITIONAL DOCUMENTS TODAY. Electric Meter Inspector: Sofei Aguillon Coverage Notice Reviewer: [id number] Victor Hugo Hendrix Notice Issued Date-Time: 06/22/2019 15:13 Notice Type: IM Discharge Notice Notice Delivered To: Patient Relationship to Patient: Self Binding End Stitcher Name: Delivery Method: HAND - Hand Delivered Nohemi Days: Prior Verbal Notification: Recipient Understood Notice: Yes Recipient Signature: Yes Med Rec Note Co-signed by Attending: Coverage Notice Comment: IMM explained, signed, given, copy placed in MR Last DP export: 06/22/19 2:30 p Patient Name: BEE GARNER Page 49618 at 1236 All edits/amendments must be made on the electronic document DICTATION DATE: 06/23/19 1235 LEGAL CASHIER: DULCE 06/23/19 1235 RPT#: [id number] DC DATE: STATUS: ADM IN [facility] [address] [place] [address] END OF REPORT
--- NOTE | 2019-06-23 13:13 | MORECARE ---
CASE MANAGEMENT DISCHARGE SUMMARY PATIENT: BEE GARNER UNIT: [id number] ADM DATE: 06/10/19 AGE: 79 : 40 SEX: M ROOM/BED: D.2232 AUTHOR: HAMMAD,DOC PHYSICIAN: REFERRING PHYSICIAN: NIDIA JIMENEZ MD DATE OF SERVICE: 06/23/19 Discharge Plan Patient Name: BEE GARNER Facility: [facility]:[place] : 1940 Planned Disposition: [facility]cf Facility Anticipated Discharge Date: 06/23/19 Discharge Date: Expected LOS: 13 Initial Reviewer: [id number] Initial Review Date: 06/10/2019 Generated: 06/23/19 2:12 pm Comments DCP- Discharge Planning Updated by [id number]: Suad Hendrix on 06/23/19 11:[address] Spoke with Balbir at [facility] and informed her patient was cleared for discharge by pulmonary (emergency preparedness coordinator spoke with Dr. Oconnor). She states she will need to see if his auth is still good and call me back. I informed Balbir that patient is on 3 liters [place] oxygen. CM will continue to follow and assist with discharge planning/needs. DCP- Discharge Planning Updated by [id number]: Suad Hendrix on 06/22/19 2:[address] Authorization has been received for SNF. 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 Dr. Oconnor states will repeat CXR and possibly discharge tomorrow. I informed Viktoriya Kim and Rafiq Ricketts. I called patient's medical POA and emergency contatct (Jessica Adames) and informed her that he may be discharged tomorrow. CM will continue to follow and assist with discharge planning/needs. DCP- Discharge Planning Updated by [id number]: Suad Hendrix on 06/22/19 10:[address] Spoke with Viktoriya Kim and updated clinical faxed. Awaiting insurance authorization for admission to SNF ([facility]). Viktoriya states they have clinically accepted, just awaiting insurance auth. CM will continue to follow and assist with discharge planning/needs. DCP- Discharge Planning Updated by [id number]: Sofie Aguillon on 06/19/19 3:[address] Patient Name: BEE GARNER Admission Status: ER Accout number: [id number] Admission Date: 06-10-2019 : 1940 Admission Diagnosis:OTH DISP FX OF UPPER END OF LEFT HUMERUS, INIT FOR CLOS Attending: NIDIA JIMENEZ Current LOS: 9 Anticipated DC Date: Planned Disposition: Primary Insurance: [facility] MEDICARE SOLUTIONS Discharge Planning Comments: CM SENT DONG ON 06/19/19 WAITING FOR RETURN FAX. PATIENT IS NOW IN ICU. DONG WILL NEED TO BE FAXED TO [facility] WHEN RECEIVED. Bell Hole Digger: Sofie Aguillon Appended by Sofie Aguillon on 06/19/2019 16:55 CDT: I MET WITH MR. GARNER TODAY AND HIS POA JESSICA ALONG WITH HOSPICE HOME CARE TI. MR. GARNER STATES HE WANTS TO REVOKE HOSPICE AND GO TO SNF WHEN MEDICALLY STABLE. HE SIGNED THE PAPERS FOR REVOCATION WITH TI. CM TO FOLLOW AND ASSIST. Appended by Sofie Aguillon on 06/19/2019 16:58 CDT: DONG FAXED TO VI[facility]TOR[facility]. DCP- Discharge Planning Updated by [id number]: Sofie Aguillon on 06/18/19 8:[address] Patient Name: BEE GARNER Admission Status: ER Accout number: [id number] Admission Date: 06-10-2019 : 1940 Admission Diagnosis:OTH DISP FX OF UPPER END OF LEFT HUMERUS, INIT FOR CLOS Attending: NIDIA JIMENEZ Current LOS: 8 Anticipated DC Date: Planned Disposition: Primary Insurance: [facility] MEDICARE SOLUTIONS Discharge Planning Comments: CM SPOKE WITH VIKTORIYA OF [facility] AND SHE IS WORKING ON THE REFERRAL FOR SNF. HE WAS WITH HOSPICE BUT WILL NEED SNF BEFORE BACK TO THEM. CM WILL FOLLOW AND ASSIST. DOCUMENTS FAXED TO VI[facility]TOR[facility] YESTERDAY. CM WILL SEND ADDITIONAL DOCUMENTS TODAY. Bell Hole Digger: Sofie Aguillon Coverage Notice Reviewer: [id number] Victor Hugo Hendrix Notice Issued Date-Time: 06/22/2019 15:13 Notice Type: IM Discharge Notice Notice Delivered To: Patient Relationship to Patient: Self Back Stayer Name: Delivery Method: HAND - Hand Delivered Nohemi Days: Prior Verbal Notification: Recipient Understood Notice: Yes Recipient Signature: Yes Med Rec Note Co-signed by Attending: Coverage Notice Comment: IMM explained, signed, given, copy placed in MR Last DP export: 06/23/19 11:36 a Patient Name: BEE GARNER Page 30761 at 1313 All edits/amendments must be made on the electronic document DICTATION DATE: 06/23/191311 INSPECTOR ASSEMBLIES AND INSTALLATIONS: DULCE 06/23/19 1312 RPT#: [id number] DC DATE: STATUS: ADM IN [facility] [address] [place] [address] END OF REPORT
--- NOTE | 2019-06-23 13:29 | MORECARE ---
CASE MANAGEMENT DISCHARGE SUMMARY PATIENT: BEE GARNER UNIT: [id number] ADM DATE: 06/10/19 AGE: 79 : 40 SEX: M ROOM/BED: D.2232 AUTHOR: HAMMAD,DOC PHYSICIAN: REFERRING PHYSICIAN: NIDIA JIMENEZ MD DATE OF SERVICE: 06/23/19 Discharge Plan Patient Name: BEE GARNER Facility: [facility]:[place] : 1940 Planned Disposition: Shelter Facility Anticipated Discharge Date: 06/23/19 Discharge Date: Expected LOS: 13 Initial Reviewer: [id number] Initial Review Date: 06/10/2019 Generated: 06/23/19 2:29 pm Comments DCP- Discharge Planning Updated by [id number]: Suad Ruma on 06/23/19 12:[address] Rosy from [facility] called and states they will accept patient today. She states they do not have the van available and will need to come via EMS. I informed her that he has oxygen on at 3l [place]. I called and his medical POA (Jeovany), she agrees with discharge to [facility] SNF. He will go via ambulance to a skilled bed. I spoke to her about transitioning to LTC and she will be getting the paperwork to get total POA. Discharge clinical faxed to [facility]. DCP- Discharge Planning Updated by [id number]: Suad Ruma on 06/23/19 11:[address] Spoke with Balbir at [facility] and informed her patient was cleared for discharge by pulmonary (programming coordinator spoke with Dr. Oconnor). She states she will need to see if his auth is still good and call me back. I informed Balbir that patient is on 3 liters [place] oxygen. CM will continue to follow and assist with discharge planning/needs. DCP- Discharge Planning Updated by [id number]: Suad Ruma on 06/22/19 2:[address] Authorization has been received for SNF. 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 Dr. Oconnor states will repeat CXR and possibly discharge tomorrow. I informed Viktoriya Kim and Rafiq Ricketts. I called patient's medical POA and emergency contatct (Jeovany Adames) and informed her that he may be discharged tomorrow. CM will continue to follow and assist with discharge planning/needs. DCP- Discharge Planning Updated by [id number]: Suad Ruma on 06/22/19 10:[address] Spoke with Viktoriya Kim and updated clinical faxed. Awaiting insurance authorization for admission to SNF ([facility]). Viktoriya states they have clinically accepted, just awaiting insurance auth. CM will continue to follow and assist with discharge planning/needs. DCP- Discharge Planning Updated by [id number]: Sofie Aguillon on 06/19/19 3:[address] Patient Name: BEE GARNER Admission Status: ER Accout number: [id number] Admission Date: 06-10-2019 : 1940 Admission Diagnosis:OTH DISP FX OF UPPER END OF LEFT HUMERUS, INIT FOR CLOS Attending: NIDIA JIMENEZ Current LOS: 9 Anticipated DC Date: Planned Disposition: Primary Insurance: [facility] MEDICARE SOLUTIONS Discharge Planning Comments: CM SENT DONG ON 06/19/19 WAITING FOR RETURN FAX. PATIENT IS NOW IN ICU. DONG WILL NEED TO BE FAXED TO [facility] WHEN RECEIVED. Side Gluer: Sofie Aguillon Appended by Sofie Aguillon on 06/19/2019 16:55 CDT: I MET WITH MR. GARNER TODAY AND HIS POA JEOVANY ALONG WITH HOSPICE HOME CARE TI. MR. GARNER STATES HE WANTS TO REVOKE HOSPICE AND GO TO SNF WHEN MEDICALLY STABLE. HE SIGNED THE PAPERS FOR REVOCATION WITH TI. CM TO FOLLOW AND ASSIST. Appended by Sofie Aguillon on 06/19/2019 16:58 CDT: DONG FAXED TO [facility]. DCP- Discharge Planning Updated by [id number]: Sofie Aguillon on 06/18/19 8:[address] Patient Name: BEE GARNER Admission Status: ER Accout number: [id number] Admission Date: 06-10-2019 : 1940 Admission Diagnosis:OTH DISP FX OF UPPER END OF LEFT HUMERUS, INIT FOR CLOS Attending: NIDIA JIMENEZ Current LOS: 8 Anticipated DC Date: Planned Disposition: Primary Insurance: [facility] MEDICARE SOLUTIONS Discharge Planning Comments: CM SPOKE WITH VIKTORIYA OF [facility] AND SHE IS WORKING ON THE REFERRAL FOR SNF. HE WAS WITH HOSPICE BUT WILL NEED SNF BEFORE BACK TO THEM. CM WILL FOLLOW AND ASSIST. DOCUMENTS FAXED TO VIKTORIYA YESTERDAY. CM WILL SEND ADDITIONAL DOCUMENTS TODAY. Side Gluer: Sofie Aguillon Coverage Notice Reviewer: [id number] Victor Hugo Hendrix Notice Issued Date-Time: 06/22/2019 15:13 Notice Type: IM Discharge Notice Notice Delivered To: Patient Relationship to Patient: Self Substation Electrician Name: Delivery Method: HAND - Hand Delivered Nohemi Days: Prior Verbal Notification: Recipient Understood Notice: Yes Recipient Signature: Yes Med Rec Note Co-signed by Attending: Coverage Notice Comment: IMM explained, signed, given, copy placed in MR Last DP export: 06/23/19 12:13 p Patient Name: BEE GARNER Page 91022 at 1329 All edits/amendments must be made on the electronic document DICTATION DATE: 06/23/19 132 TUGBOAT MATE: DULCE 06/23/19 1329 RPT#: [id number] DC DATE: STATUS: ADM IN [facility] [address] [place] [address] END OF REPORT
--- NOTE | 2019-06-23 13:47 | NUR ---
IV REMOVED WITH CATH INTACT AND NO REDENSS OR EDEMA AT SITE. DRESSING CHANGED TO LEFT SHOULDER, SANJU INTACT. REPORT CALLED TO LETICIA AT [facility].
--- NOTE | 2019-06-23 14:51 | NUR ---
PATIENT TAKEN BY AMBULANCE TO [facility]
--- NOTE | 2019-06-25 08:21 | MORECARE ---
CASE MANAGEMENT DISCHARGE SUMMARY PATIENT: BEE GARNER UNIT: [id number] ADM DATE: 06/10/19 AGE: 79 : 40 SEX: M ROOM/BED: D.2232 AUTHOR: HAMMAD,DOC PHYSICIAN: REFERRING PHYSICIAN: NIDIA JIMENEZ MD DATE OF SERVICE: 06/25/19 Discharge Plan Patient Name: BEE GARNER Facility: [facility]:[place] : 1940 Planned Disposition: [facility] Facility Anticipated Discharge Date: 06/23/19 Discharge Date: 06/23/2019 Expected LOS: 13 Initial Reviewer: [id number] Initial Review Date: 06/10/2019 Generated: 06/25/19 9:21 am Comments DCP- Discharge Planning Updated by [id number]: Suad Ruma on 06/23/19 12:[address] Rosy from [facility] called and states they will accept patient today. She states they do not have the van available and will need to come via EMS. I informed her that he has oxygen on at 3l [place]. I called and his medical POA (Jeovany), she agrees with discharge to [facility] SNF. He will go via ambulance to a skilled bed. I spoke to her about transitioning to LTC and she will be getting the paperwork to get total POA. Discharge clinical faxed to [facility]. DCP- Discharge Planning Updated by [id number]: Suad Hendrix on 06/23/19 11:[address] Spoke with Balbir at [facility] and informed her patient was cleared for discharge by pulmonary (stroke coordinator spoke with Dr. Oconnor). She states she will need to see if his auth is still good and call me back. I informed Balbir that patient is on 3 liters [place] oxygen. CM will continue to follow and assist with discharge planning/needs. DCP- Discharge Planning Updated by [id number]: Suad Hendrix on 06/22/19 2:[address] Authorization has been received for SNF. 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 Dr. Oconnor states will repeat CXR and possibly discharge tomorrow. I informed Viktoriya Kim and Rafiq Ricketts. I called patient's medical POA and emergency contatct (Jeovany Adames) and informed her that he may be discharged tomorrow. CM will continue to follow and assist with discharge planning/needs. DCP- Discharge Planning Updated by [id number]: Suad Hendrix on 06/22/19 10:[address] Spoke with Viktoriya Kim and updated clinical faxed. Awaiting insurance authorization for admission to SNF ([facility]). Viktoriya states they have clinically accepted, just awaiting insurance auth. CM will continue to follow and assist with discharge planning/needs. DCP- Discharge Planning Updated by [id number]: Sofie Aguillon on 06/19/19 3:[address] Patient Name: BEE GARNER Admission Status: ER Accout number: [id number] Admission Date: 06-10-2019 : 1940 Admission Diagnosis:OTH DISP FX OF UPPER END OF LEFT HUMERUS, INIT FOR CLOS Attending: NIDIA JIMENEZ Current LOS: 9 Anticipated DC Date: Planned Disposition: Primary Insurance: [facility] MEDICARE SOLUTIONS Discharge Planning Comments: CM SENT DONG ON 06/19/19 WAITING FOR RETURN FAX. PATIENT IS NOW IN ICU. DONG WILL NEED TO BE FAXED TO [facility] WHEN RECEIVED. Physical Meteorologist: Sofie Aguillon Appended by Sofie Aguillon on 06/19/2019 16:55 CDT: I MET WITH MR. GARNER TODAY AND HIS POA JEOVANY ALONG WITH HOSPICE HOME CARE TI. MR. GARNER STATES HE WANTS TO REVOKE HOSPICE AND GO TO SNF WHEN MEDICALLY STABLE. HE SIGNED THE PAPERS FOR REVOCATION WITH TI. CM TO FOLLOW AND ASSIST. Appended by Sofie Aguillon on 06/19/2019 16:58 CDT: DONG FAXED TO VIKTORIYA OF [facility]. DCP- Discharge Planning Updated by [id number]: Sofie Aguillon on 06/18/19 8:[address] Patient Name: BEE GARNER Admission Status: ER Accout number: [id number] Admission Date: 06-10-2019 : 1940 Admission Diagnosis:OTH DISP FX OF UPPER END OF LEFT HUMERUS, INIT FOR CLOS Attending: NIDIA JIMENEZ Current LOS: 8 Anticipated DC Date: Planned Disposition: Primary Insurance: [employer] MEDICARE SOLUTIONS Discharge Planning Comments: CM SPOKE WITH VIKTORIYA OF [facility] AND SHE IS WORKING ON THE REFERRAL FOR SNF. HE WAS WITH HOSPICE BUT WILL NEED SNF BEFORE BACK TO THEM. CM WILL FOLLOW AND ASSIST. DOCUMENTS FAXED TO VIKTORIYA YESTERDAY. CM WILL SEND ADDITIONAL DOCUMENTS TODAY. Physical Meteorologist: Sofie Aguillon Coverage Notice Reviewer: [id number] Victor Hugo Hendrix Notice Issued Date-Time: 06/22/2019 15:13 Notice Type: IM Discharge Notice Notice Delivered To: Patient Relationship to Patient: Self Industrial Production Manager Name: Delivery Method: HAND - Hand Delivered Nohemi Days: Prior Verbal Notification: Recipient Understood Notice: Yes Recipient Signature: Yes Med Rec Note Co-signed by Attending: Coverage Notice Comment: IMM explained, signed, given, copy placed in MR Last DP export: 06/23/19 12:29 p Patient Name: BEE GARNER Page 84047 at 0821 All edits/amendments must be made on the electronic document DICTATION DATE: 06/25/19820 PREPRESS TECHNICIAN: DULCE 06/25/19820 RPT#: [id number] DC DATE:06/23/19 STATUS: DIS IN [facility] [address] [place] [address] END OF REPORT
--- NOTE | 2019-07-13 11:31 | CN ---
PATIENT NAME:BEE LUNA MEDICAL RECORD: [id number] : [birth year] LOCATION:D.MS [id number] ADMIT DATE: 06/10/19 ACCOUNT: [id number] CONSULTING PHYSICIAN: DIEGO FLORES MD REFERRING PHYSICIAN: NIDIA JIMENEZ MD DATE OF CONSULTATION: 06/12/2019 HISTORY OF PRESENT ILLNESS: Mr. Luna is a 78-year-old male recently underwent orthopedic surgery. At the time of intubation, Anesthesia noticed polypoid or may be cystic mass kind of a flopping into the airway above the level of the larynx may be at the epiglottis, AE folds approximately that level that somewhat interfere with intubation. PAST MEDICAL HISTORY: Reviewed on the computer. PHYSICAL EXAMINATION: GENERAL: He is alert, awake, cooperative. Not a good historian though. He does have a normal voice and is wearing nasal oxygen removed that for exam. EYES: Normal. NOSE: No mass, polyps or drainage. ORAL CAVITY AND OROPHARYNX: Tongue protrudes in midline. No trismus. Pharynx looks normal. Normal palate. NECK: No masses, no adenopathy. Flexible laryngoscopy through the left side of the nose after being injected with ropivacine. The nasal cavity and nasopharynx are normal. The hypopharynx, vallecula, base of tongue, supraglottic larynx are normal. The vallecula is normal. The piriforms are normal. The entire supraglottic larynx looks normal. He has got normal cord mobility. Subglottis and upper trachea, I can see down 2 to 3 cm all looks normal, so no masses, lesions, or polyps. He did have something small on the base of the tongue and apparatus fell posteriorly and intubation or something that is certainly not interfering with the airway at all. IMPRESSION: Questionable laryngeal mass. Laryngoscopy is negative. I think may be part of the base of tongue or may assist in the vallecula that ruptured prior to intubation something like that but there is nothing visible on exam. His airways all normal. TRANSINT:[id number] Voice Confirmation ID: [id number] DOCUMENT ID: [id number] DIEGO FLORES MD at 1131 CC: [id number] DICTATION DATE: 06/12/19 1425 TITLE SUPERVISOR: 06/12/192106 DIS IN 06/23/19 [facility] [address] [place] [address]
== END 2019-06-23 14:52 | DRG 492 ==
LOC: D.ER 23:49 → D.ICU 06-10 02:19 → D.MS 06-10 02:19 → D.ICU 06-18 21:56 → D.MS 06-20 15:44
PROVIDERS: Family Medicine; ADMIT Internal Medicine Nephrology; ATTEND Internal Medicine Nephrology
PROC: 0PSG04Z Reposition Left Humeral Shaft with Internal Fixation Device, Open Approach (ICD-10-PCS; principal; 2019-06-10)
DX: S42.292A Other displaced fracture of upper end of left humerus, initial encounter for closed fracture (principal); I21.4 Non-ST elevation (NSTEMI) myocardial infarction; J18.9 Pneumonia, unspecified organism; F17.203 Nicotine dependence unspecified, with withdrawal; J96.11 Chronic respiratory failure with hypoxia; N17.9 Acute kidney failure, unspecified; W06.XXXA Fall from bed, initial encounter; Y92.009 Unspecified place in unspecified non-institutional (private) residence as the place of occurrence of the external cause; E11.22 Type 2 diabetes mellitus with diabetic chronic kidney disease; N18.9 Chronic kidney disease, unspecified; J44.9 Chronic obstructive pulmonary disease, unspecified

== ENCOUNTER 2019-08-03 10:05 | Inpatient (IN) | payer MEDICARE, MEDICAID ==
[~2019-08-03] VITALS: Ht 190.5 cm; Wt 62.7 kg
[~2019-08-03 10:05] MED LIST changes: +ALBUTEROL SULF8.5 GM INH; +CELEXA40 MG PO; +COLACE100 MG PO; +CYCLOBENZAPRINE10 MG PO; +HYDROCODON-ACE1 EA10 PO; +LISINOPRIL2.5 MG PO; +MIRALAX17 GM PO; +ZITHROMAX500 MG PO; +ZOFRAN4 MG PO
[2019-08-03 11:00] VITALS: BP 128/60
[2019-08-03 11:04] LABS: BASOPHILS 0.1 % (0-2); EOSINOPHILS 0.3 % (0-7); HEMATOCRIT 36.5 % (42.0-54.0); HEMOGLOBIN 11.7 g/dL (13.5-17.5); IMMATURE GRANULOCYTES 0.3 % (0-5); LYMPHOCYTES 4.5 % (15-50); MCHC 32.1 g/dL (31.0-37.0); MCV 96.6 fL (80.0-100.0); MEAN PLATELET VOLUME 8.7 fL (7.4-10.4); MONOCYTES 6.7 % (2-11); NEUTROPHILS 88.1 % (40-80); PLATELET COUNT 239 10x3/uL (130-400); RBC 3.78 10x6/uL (4.20-6.10); RDW 14.9 % (11.5-14.5); WBC 11.4 10x3/uL (4.8-10.8)
[2019-08-03 11:24] LABS: ALBUMIN 3.1 g/dL (3.4-5.0); ANION GAP 19.6 mmol/L (8-16); BILIRUBIN - TOTAL 0.54 mg/dL (0.2-1.3); CALCIUM 8.4 mg/dL (8.5-10.1); CARBON DIOXIDE 18.9 mmol/L (21.0-32.0); CREATININE - SERUM 2.7 mg/dL (0.6-1.3); POTASSIUM - SERUM 5.5 mmol/L (3.5-5.1); PROTEIN - SERUM 6.8 g/dL (6.4-8.2)
[2019-08-03 11:35] LABS: MAGNESIUM - SERUM 1.9 mg/dL (1.8-2.4); THYROID STIMULATING HORMONE 2.02 uIU/mL (0.36-3.74)
--- NOTE | 2019-08-03 12:35 | NUR ---
LACTIC ACID, 2.6. CALLED BY [employer]. NOTIFIED DR. PALAFOX
[2019-08-03 14:15] VITALS: BP 141/78
--- NOTE | 2019-08-03 15:13 | NUR ---
20 GAUGE IV STARTED IN RIGHT WRIST X 1 STICK, FLUSHED WITHOUT DIFFICULTY, SECURED WITH TAPE AND TEGADERM. WITHOUT REDNESS OR EDEMA
[2019-08-03 16:41] VITALS: BP 107/87
--- NOTE | 2019-08-03 17:15 | NUR ---
RADIOLOGY STATES MACHINE DOWN AND CANNOT PERFORM VQ SCAN. ASKING IF CAN DO TOMORROW. NAYANA LBACKMON NOTIFIED. STATES WANTS TO VERIFY WITH DWORKIN BEFORE ANSWERING.
[2019-08-03 18:06] VITALS: BP 107/87; BMI 22.5
--- NOTE | 2019-08-03 20:00 | NUR ---
RESTING IN BED TREMORS NOTED, FAMILY MEMBER AT BEDSIDE STATES HAS NOT HAD HIS MEDICINE TODAY, SEE ASSESSMENT, SPEECH GARBLED UNABLE TO UNDERSTAND, FAMILY STATES BISHOP PAIUTE, IV INFUSING WITHOUT DIFFICULTY, O2 IN USE N/C, RESP UNLABORED
[2019-08-03 20:24] VITALS: BP 109/60
[2019-08-04] VITALS (12 sets, daily range): BP systolic 80–121; BP diastolic 36–79; Ht 190.5 cm; Wt 62.7 kg
[2019-08-04 06:20] LABS: BASOPHILS 0 % (0-2); EOSINOPHILS 0 % (0-7); IMMATURE GRANULOCYTES 0.3 % (0-5); LYMPHOCYTES 5.9 % (15-50); MCH 31.3 pg (26.0-34.0); MCHC 32.7 g/dL (31.0-37.0); MCV 95.8 fL (80.0-100.0); MEAN PLATELET VOLUME 8.8 fL (7.4-10.4); MONOCYTES 6.2 % (2-11); NEUTROPHILS 87.6 % (40-80); WBC 10.5 10x3/uL (4.8-10.8)
[2019-08-04 06:27] LABS: HEMATOCRIT 25.4 % (42.0-54.0); HEMOGLOBIN 8.3 g/dL (13.5-17.5); PLATELET COUNT 171 10x3/uL (130-400); RBC 2.65 10x6/uL (4.20-6.10)
[2019-08-04 06:50] LABS: AMYLASE - SERUM 34 U/L (25-115); CALC OSMOLALITY 291 mosm/kg (275-300); CALCIUM 7.9 mg/dL (8.5-10.1); CARBON DIOXIDE 17.5 mmol/L (21.0-32.0); CHLORIDE - SERUM 107 mmol/L (98-107); CREATININE - SERUM 2.9 mg/dL (0.6-1.3); GLUCOSE 189 mg/dL (74-106); LIPASE 51 U/L (73-393); MAGNESIUM - SERUM 1.9 mg/dL (1.8-2.4); POTASSIUM - SERUM 5.7 mmol/L (3.5-5.1); SODIUM 136 mmol/L (136-145); TROPONIN-I < 0.017 ng/mL (0.000-0.060); UREA NITROGEN 54 mg/dL (7-18); VANCOMYCIN - RANDOM 10.9 ug/mL (10.0-20.0); eGFR NON AFRICAN AMERICAN 22 mL/min (90-120)
--- NOTE | 2019-08-04 07:30 | NUR ---
PATIENT RECIEVED FROM PREVIOUS SHIFT RESTING WITH EYES CLOSED, NO DISTRESS, RESPIRATIONS NON-LABORED. ELROY PEREA NOTIFIED OF LOW BLOOD PRESSURE WITH NO CHANGES ORDERED AT THIS TIME.
[2019-08-04 08:23] LABS: % SATURATION 10 % (15-55); IRON 14 ug/dl (35-150); TOTAL IRON BIND CAPACITY 129 ug/dl (260-445); UNSAT IRON BIND CAPACITY 115 ug/dl (150-375)
[2019-08-04 08:40] LABS: INR 1.45 (0.85-1.17); PROTIME 17.1 SECONDS (11.6-15.0)
[2019-08-04 09:19] LABS: HEMATOCRIT 25.4 % (42.0-54.0); HEMOGLOBIN 8.1 g/dL (13.5-17.5)
--- NOTE | 2019-08-04 10:11 | NUR ---
PATIENT AWAKE AND SPEAKING CLEARLY AT THIS TIME. BLADDER SCANNED WITH 650 ML NOTED. PATIENT REFUSED TO HAVE CHARLES CATH PLACED.
--- NOTE | 2019-08-04 10:46 | NUR ---
1015 RISA DISABILITY MANAGER PRESENT AT BEDSIDE. PROVIDED DISCHARGE INSTRUCTIONS TO PATIENT AND FAMILY RX FOR NORCO GIVEN
--- NOTE | 2019-08-04 10:48 | NUR ---
1046 TRANSPORTED VIA WHEELCHAIR TO CAR. FAMILY PRESENT TO DRIVE PT HOME DISCHARGE PAPERS GIVEN WITH INSTRUCTIONS FOR FOLLOW UP APPOINTMENTS WITH BENITEZ SIMPSON, AND [facility] FAMILY AND PATIENT VERBALIZED UNDERSTANDING ORION HOSE PLACED ON PATIENT WITH INSTRUCTIONS TO WEAR FOR 4 WEEKS.
--- NOTE | 2019-08-04 11:29 | NUR ---
REPORT CALLED TO MARIANELA VANEGAS IN CVICU. PATIENT TAKEN BY BED TO CVICU ROOM 4
--- NOTE | 2019-08-04 11:43 | NUR ---
1138 ARRIVED TO ROOM CV04 PATIENT SHOWING HEART RATE 164 STAT ECG DONE SAM AT BEDSIDE GIVING ORDERS STARTED NS BOLUS .
--- NOTE | 2019-08-04 11:54 | NUR ---
1149 STARTED LOADING DOSE AMIODARONE
--- NOTE | 2019-08-04 12:19 | NUR ---
1053 MAINT DOSE AMIODARONE INITIATED HR 94
--- NOTE | 2019-08-04 14:38 | NUR ---
1200 HEART RATE 94 CONTINUE WITH AMIODARONE INFUSIION. NS 500ML BOLUS COMPLETE
--- NOTE | 2019-08-04 14:41 | NUR ---
1300 POA AT BEDSIDE EMOTIIONAL SUPPORT PROVIDED
--- NOTE | 2019-08-04 14:42 | NUR ---
1430 SBP 73 RR 30 PT UNABLE TO COUGH UP THICK MUCUS POA DID NOT WANT ANY TREATMENT DONE PT IS FULL DNR DR TONY DIAZ TO BEDSIDE AND ORDERED COMFORT CARE ONLY
--- NOTE | 2019-08-04 15:48 | MORECARE ---
CASE MANAGEMENT DISCHARGE SUMMARY PATIENT: BEE GARNER UNIT: [id number] ADM DATE: 08/03/19 AGE: 79 : 40 SEX: M [facility] AUTHOR: RENAN CUEVA PHYSICIAN: REFERRING PHYSICIAN: NIDIA JIMENEZ MD DATE OF SERVICE: 08/04/19 Discharge Plan Patient Name: BEE GARNER Facility: [facility]:[place] : 1940 Planned Disposition: Anticipated Discharge Date: Discharge Date: Expected LOS: Initial Reviewer: [email or web address] Initial Review Date: 08/04/2019 Generated: 08/04/19 4:47 pm DCP- Discharge Planning Updated by [email or web address]: Cara Hall on 08/03/19 10:[address] CM contacted [facility] to determine which hospice patient discharged home with, from their [facility]. CM contacted [facility], Care #[phone] for patient's hospice diagnosis. Per Ping, patient was admitted to their service for COPD. Patient has a caregiver, Oumou, with [employer]. Patient Name: BEE GARNER Page 61056 at 1548 All edits/amendments must be made on the electronic document DICTATION DATE: 08/04/19 1547 GROUND SYSTEMS ENGINEER: DULCE 08/04/19 154 RPT#: [id number] DC DATE: STATUS: ADM IN [facility] [address] [place] [address] END OF REPORT
--- NOTE | 2019-08-04 16:01 | MORECARE ---
CASE MANAGEMENT DISCHARGE SUMMARY PATIENT: BEE GARNER UNIT: [id number] ADM DATE: 08/03/19 AGE: 79 : 40 SEX: M [facility] AUTHOR: RENAN CUEVA PHYSICIAN: REFERRING PHYSICIAN: NIDIA JIMENEZ MD DATE OF SERVICE: 08/04/19 Discharge Plan Patient Name: BEE GARNER Facility: [facility]:[place] : 1940 Planned Disposition: Anticipated Discharge Date: Discharge Date: Expected LOS: Initial Reviewer: [email or web address] Initial Review Date: 08/04/2019 Generated: 08/04/19 5:01 pm DCP- Discharge Planning Updated by [email or web address]: Cara Hall on 08/03/19 10:[address] CM contacted [facility] to determine which hospice patient discharged home with, from their facility[facility]. CM contacted [facility] #[phone] for patient's hospice diagnosis. Per Ping, patient was admitted to their service for COPD. Patient has a caregiver, Oumou, with [employer]. DCPIA - Discharge Planning Initial Assessment Updated by [email or web address]: Ivon Winters on 08/04/19 3:57 pm * Is the patient Alert and Oriented? No * Preadmission Environment Hospice * Facility [facility] * ADLs Partial Dependent * Partial ADLs (Assistance needed) Bathing Dressing * Other Equipment DME SUPPLIED BY HOSPICE * Verbal permission to speak to the caregivers and representatives has been obtained from the patient. N/A * Community resources currently utilized [facility] * Please name any agencies selected above. [facility] * Additional services required to return to the preadmission environment? No * Can the patient safely return to the preadmission environment? Yes * Has this patient been hospitalized within the prior 30 days at any hospital? No Last DP export: 08/04/19 2:48 p Patient Name: BEE GARNER Page [id number] at 1601 All edits/amendments must be made on the electronic document DICTATION DATE: 08/04/191600 SHANK STAPLER: DULCE 08/04/191600 RPT#: [id number] DC DATE: STATUS: ADM IN [facility] [address] [place] [address] END OF REPORT
--- NOTE | 2019-08-04 16:35 | MORECARE ---
CASE MANAGEMENT DISCHARGE SUMMARY PATIENT: BEE GARNER UNIT: [id number] ADM DATE: 08/03/19 AGE: 79 : 40 SEX: M ROOM/BED: D[facility] AUTHOR: HAMMADDOC PHYSICIAN: REFERRING PHYSICIAN: NIDIA JIMENEZ MD DATE OF SERVICE: 08/04/19 Discharge Plan Patient Name: BEE GARNER Facility: [facility]:[place] : 1940 Planned Disposition: Anticipated Discharge Date: Discharge Date: Expected LOS: Initial Reviewer: [email or web address] Initial Review Date: 08/04/2019 Generated: 08/04/19 5:35 pm Comments DCP- Discharge Planning Updated by [email or web address]: Ivon Winters on 08/04/19 3:[address] Patient Name: BEE GARNER Admission Status: ER Accout number: [id number] Admission Date: 08-03-2019 : 1940 Admission Diagnosis: Attending: NIDIA JIMENEZ Current LOS: 1 Anticipated DC Date: Planned Disposition: Primary Insurance: [facility] MEDICARE SOLUTIONS Discharge Planning Comments: CM spoke with one of his care givers that was at bedside. Patient currently not responding. Oly is his urgent care nurse practitioner from [facility]. Oly stated he has been at home with [facility] and [facility]. His Hospice was revoked yesterday when came into hospital. CM called to confirm that Hospice was revoked. CM called and spoke with Etiquette Coach at [facility] and she stated that it had been revoked 08/03/19. They would gladly readmit once discharged if they patient desired. Jessie Cano -Cash Specialist [phone] with [facility] called and stated they have been working on getting patient placed at [facility] Rehab. Jessie stated that [facility] should have all the paperwork there to admit after discharge. CM will contine to follow and assist as needed with discharge planning / needs. Deputy Director Of Public Works: Ivon Winters DCP- Discharge Planning Updated by [email or web address]: Cara Hall on 08/03/19 10:[address] CM contacted [facility] to determine which hospice patient discharged home with, from their facility[facility]. CM contacted [facility] #[phone] for patient's hospice diagnosis. Per Ping, patient was admitted to their service for COPD. Patient has a caregiver, Oumou, with [employer]. DCPIA - Discharge Planning Initial Assessment Updated by [email or web address]: Ivon Winters on 08/04/19 3:57 pm * Is the patient Alert and Oriented? No * Preadmission Environment Hospice * Facility Name [facility] * ADLs Partial Dependent * Partial ADLs (Assistance needed) Bathing Dressing * Other Equipment DME SUPPLIED BY HOSPICE * Verbal permission to speak to the caregivers and representatives has been obtained from the patient. N/A * Community resources currently utilized [facility] * Please name any agencies selected above. [facility] * Additional services required to return to the preadmission environment? No * Can the patient safely return to the preadmission environment? Yes * Has this patient been hospitalized within the prior 30 days at any hospital? No Last DP export: 08/04/19 3:01 p Patient Name: BEE GARNER Page [phone] at 1635 All edits/amendments must be made on the electronic document DICTATION DATE: 08/04/19 163 AEROSPACE QUALITY ENGINEER: DULCE 08/04/19 163 RPT#: [id number] DC DATE: STATUS: ADM IN [facility] [address] [place] [address] END OF REPORT
--- NOTE | 2019-08-04 17:29 | NUR ---
1545 DR SAL SPEAKING WITH POA. ORDERED COMFORT CARE ONLY
--- NOTE | 2019-08-04 17:29 | MORECARE ---
CASE MANAGEMENT DISCHARGE SUMMARY PATIENT: BEE GARNER UNIT: [id number] ADM DATE: 08/03/19 AGE: 79 : 40 SEX: M ROOM/BED: D[facility] AUTHOR: RENAN CUEVA PHYSICIAN: REFERRING PHYSICIAN: NIDIA JIMENEZ MD DATE OF SERVICE: 08/04/19 Discharge Plan Patient Name: BEE GARNER Facility: [facility]:[place] : 1940 Planned Disposition: Anticipated Discharge Date: Discharge Date: Expected LOS: Initial Reviewer: [email or web address] Initial Review Date: 08/04/2019 Generated: 08/04/19 6:28 pm Comments DCP- Discharge Planning Updated by [email or web address]: Ivon Winters on 08/04/19 4:[address] 1630 CM notified that patient is to go back to hospice. [facility] be [facility] there. CM could not get anyone to answer the phone. Family would like for patient to be admitted back to [facility]. CM explained that [facility] doesn't have a contract with that [facility]ice [facility]. CM explained that the only company [facility] has a contract with is [employer]. Patient isn't taking any pain medications or anything for anxiety CM doesn't think that [facility] would find patient to be inpatient appropriate GIP. Family has decided to wait until am for Hospice. CM will check with [facility] in am about admission. The patient will be comfort care throughout the night then we will check on placement in am and readmission to hospice. CM will continue to follow and assist as needed with discharge planning / needs. DCP- Discharge Planning Updated by [id number]: Ivon Winters on 08/04/19 3:[address] Patient Name: BEE GARNER Admission Status: ER Accout number: [id number] Admission Date: 08-03-2019 : 1940 Admission Diagnosis: Attending: NIDIA JIMENEZ Current LOS: 1 Anticipated DC Date: Planned Disposition: Primary Insurance: [facility] MEDICARE SOLUTIONS Discharge Planning Comments: CM spoke with one of his care givers that was at bedside. Patient currently not responding. Oly is his managed care provider from [facility]. Oly stated he has been at home with [facility] and [facility]. His Hospice was revoked yesterday when came into hospital. CM called to confirm that Hospice was revoked. CM called and spoke with Junior Estimator at [facility] and she stated that it had been revoked 08/03/19. They would gladly readmit once discharged if they patient desired. Jessie Cano -Derrick Follower [phone] with [facility] called and stated they have been working on getting patient placed at [facility]. Jessie stated that [facility] should have all the paperwork there to admit after discharge. CM will contine to follow and assist as needed with discharge planning / needs. Claim Specialist: Ivon Winters DCP- Discharge Planning Updated by [email or web address]: Cara Hall on 08/03/19 10:[address] CM contacted Shanice with [facility] to determine which hospice patient discharged home with, from their facility[facility]. CM contacted [facility] #[phone] for patient's hospice diagnosis. Per Ping, patient was admitted to their service for COPD. Patient has a caregiver, Oumou, with [employer]. DCPIA - Discharge Planning Initial Assessment Updated by [email or web address]: Ivon Winters on 08/04/19 3:57 pm * Is the patient Alert and Oriented? No * Preadmission Environment Hospice * Facility Name [facility] * ADLs Partial Dependent * Partial ADLs (Assistance needed) Bathing Dressing * Other Equipment DME SUPPLIED BY HOSPICE * Verbal permission to speak to the caregivers and representatives has been obtained from the patient. N/A * Community resources currently utilized [facility] * Please name any agencies selected above. [facility] * Additional services required to return to the preadmission environment? No * Can the patient safely return to the preadmission environment? Yes * Has this patient been hospitalized within the prior 30 days at any hospital? No Last DP export: 08/04/19 3:35 p Patient Name: BEE GARNER Page 44155 at 7879 All edits/amendments must be made on the electronic document DICTATION DATE: 08/04/191727 PUNCH BOX TENDER: DULCE 08/04/191727 RPT#: [id number] DC DATE: STATUS: ADM IN [facility] [address] [facility] [place] [address] END OF REPORT
--- NOTE | 2019-08-04 17:30 | NUR ---
1730 CALLED REPORT TO ROOM 2113 TO JUAN
--- NOTE | 2019-08-04 17:43 | MORECARE ---
CASE MANAGEMENT DISCHARGE SUMMARY PATIENT: BEE GARNER UNIT: [id number] ADM DATE: 08/03/19 AGE: 79 : 40 SEX: M ROOM/BED: D[facility] AUTHOR: HAMMADDOC PHYSICIAN: REFERRING PHYSICIAN: NIDIA JIMENEZ MD DATE OF SERVICE: 08/04/19 Discharge Plan Patient Name: BEE GARNER Facility: [facility]:[place] : 1940 Planned Disposition: Anticipated Discharge Date: Discharge Date: Expected LOS: Initial Reviewer: [email or web address] Initial Review Date: 08/04/2019 Generated: 08/04/19 6:42 pm Comments DCP- Discharge Planning Updated by [email or web address]: Ivon Winters on 08/04/19 4:[address] 1630 CM notified that patient is to go back to hospice. CM attempted to call [facility] to find out if patient is to be admitted there. CM could not get anyone to answer the phone. Family would like for patient to be admitted [facility] to [facility]. CM explained that [facility] doesn't have a contract with that Hospice Company. CM explained that the only company [facility] has a contract with is [facility]. Patient isn't taking any pain medications or anything for anxiety CM doesn't think that [facility] would find patient to be inpatient appropriate GIP. Family has decided to wait until am for Hospice. [facility] about [facility]. The patient will be comfort care throughout the night then we will check on placement in am and readmission to hospice. CM will continue to follow and assist as needed with discharge planning / needs. Appended by Ivon Winters on 08/04/2019 17:36 CDT: 1730 Spoke with daughter Jessica JUNE she stated he is not going to in that penitentiary. The plan at this time is for patient to discharge back to his apartment with Hospice and [facility] services around the clock care. Hospice is telling family that they will provide care around the clock for 5 days. CM will continue to follow and assist as needed with discharge planning / needs. DCP- Discharge Planning Updated by [email or web address]: Ivon Winters on 08/04/19 3:[address] Patient Name: BEE GARNER Admission Status: ER Accout number: [id number] Admission Date: 08-03-2019 : 1940 Admission Diagnosis: Attending: NIDIA JIMENEZ Current LOS: 1 Anticipated DC Date: Planned Disposition: Primary Insurance: [facility] MEDICARE SOLUTIONS Discharge Planning Comments: CM spoke with one of his care givers that was at bedside. Patient currently not responding. Oly is his manager care from [facility]. Oly stated he has been at home with [facility] and [facility]. His Hospice was revoked yesterday when came into hospital. CM called to confirm that Hospice was revoked. CM called and spoke with Packer Operator Automatic at [facility] and she stated that it had been revoked 08/03/19. They would gladly readmit once discharged if they patient desired. Jessie Cano -Flame Planer [phone] with [facility] called and stated they have been working on getting patient placed at [facility]. Jessie stated that [facility] should have all the paperwork there to admit after discharge. CM will contine to follow and assist as needed with discharge planning / needs. Curber: Ivon Winters DCP- Discharge Planning Updated by [email or web address]: Cara Hall on 08/03/19 10:[address] CM contacted [facility] to determine which hospice patient discharged home with, from their facility[facility]. CM contacted [facility], Care #[phone] for patient's hospice diagnosis. Per Ping, patient was admitted to their service for COPD. Patient has a caregiver, Oumou, with [employer]. DCPIA - Discharge Planning Initial Assessment Updated by [email or web address]: Ivon Winters on 08/04/19 3:57 pm * Is the patient Alert and Oriented? No * Preadmission Environment Hospice * Facility Name [facility] * ADLs Partial Dependent * Partial ADLs (Assistance needed) Bathing Dressing * Other Equipment DME SUPPLIED BY HOSPICE * Verbal permission to speak to the caregivers and representatives has been obtained from the patient. N/A * Community resources currently utilized [facility] * Please name any agencies selected above. [facility] * Additional services required to return to the preadmission environment? No * Can the patient safely return to the preadmission environment? Yes * Has this patient been hospitalized within the prior 30 days at any hospital? No Last DP export: 08/04/19 4:29 p Patient Name: BEE GARNER Page 84773 at 1743 All edits/amendments must be made on the electronic document DICTATION DATE: 08/04/191741 BIOMEDICAL SERVICE ENGINEER: DULCE 08/04/191741 RPT#: [id number] DC DATE: STATUS: ADM IN [facility] [address] [place] [address] END OF REPORT
--- NOTE | 2019-08-04 18:52 | MORECARE ---
CASE MANAGEMENT DISCHARGE SUMMARY PATIENT: BEE GARNER UNIT: [id number] ADM DATE: 08/03/19 AGE: 79 : 40 SEX: M ROOM/BED: D.8243 AUTHOR: HAMMAD,DOC PHYSICIAN: REFERRING PHYSICIAN: NIDIA JIMENEZ MD DATE OF SERVICE: 08/04/19 Discharge Plan Patient Name: BEE GARNER Facility: [facility]:[place] : 1940 Planned Disposition: Anticipated Discharge Date: Discharge Date: Expected LOS: Initial Reviewer: [email or web address] Initial Review Date: 08/04/2019 Generated: 08/04/19 7:52 pm Comments DCP- Discharge Planning Updated by [email or web address]: Ivon Winters on 08/04/19 4:[address] 1630 CM notified that patient is to go back to hospice. CM attempted to call [facility] to find out if patient is to be admitted there. CM could not get anyone to answer the phone. Family would like for patient to be [facility] to [facility]. CM explained that [facility] doesn't have a contract with that Hospice Company. CM explained that the only company [facility] has a contract with is [facility]. Patient isn't taking any pain medications or anything for anxiety CM doesn't think that [facility] would find patient to be inpatient appropriate GIP. Family has decided to wait until am for Hospice. CM will check with [facility] in am about admission. The patient will be comfort care throughout the night then we will check on placement in am and readmission to hospice. CM will continue to follow and assist as needed with discharge planning / needs. Appended by Ivon Winters on 08/04/2019 17:36 CDT: 1730 Spoke with daughter Jessica JUNE she stated he is not going to in that detention. The plan at this time is for patient to discharge back to his apartment with Hospice and [facility] services around the clock care. Hospice is telling family that they will provide care around the clock for 5 days. CM will continue to follow and assist as needed with discharge planning / needs. DCP- Discharge Planning Updated by [email or web address]: Ivon Winters on 08/04/19 3:[address] Patient Name: BEE GARNER Admission Status: ER Accout number: [id number] Admission Date: 08-03-2019 : 1940 Admission Diagnosis: Attending: NIDIA JIMENEZ Current LOS: 1 Anticipated DC Date: Planned Disposition: Primary Insurance: [facility] MEDICARE SOLUTIONS Discharge Planning Comments: CM spoke with one of his care givers that was at bedside. Patient currently not responding. Oly is his animal care provider from [facility]. Oly stated he has been at home with [facility] and [facility]. His Hospice was revoked yesterday when came into hospital. CM called to confirm that Hospice was revoked. CM called and spoke with Log Manager at [facility] and she stated that it had been revoked 08/03/19. They would gladly readmit once discharged if they patient desired. Jessie Cano -Dance Historian [phone] with [facility] called and stated they have been working on getting patient placed at [facility]hab. Jessie stated that [facility] should have all the paperwork there to admit after discharge. CM will contine to follow and assist as needed with discharge planning / needs. [employer] Former: Ivon Winters DCP- Discharge Planning Updated by [email or web address]: Cara Hall on 08/03/19 10:[address] CM contacted [facility]ice mann [facility] to determine which hospice patient discharged home with, from their facility[facility]. CM contacted [facility], Care #[phone] for patient's hospice diagnosis. Per Ping, patient was admitted to their service for COPD. Patient has a caregiver, Oumou, with [employer]. DCPIA - Discharge Planning Initial Assessment Updated by [email or web address]: Ivon Winters on 08/04/19 6:50 pm * Is the patient Alert and Oriented? No * Preadmission Environment Hospice * Facility Name [facility] * ADLs Partial Dependent * Partial ADLs (Assistance needed) Bathing Dressing * Other Equipment DME SUPPLIED BY HOSPICE * List name and contact numbers for known caregivers / representatives who currently or will assist patient after discharge: JESSICA RUSH - POA - [phone] CHRISTOPHER VILLAGRAN - FRIEND - [phone], * Verbal permission to speak to the caregivers and representatives has been obtained from the patient. N/A * Community resources currently utilized [facility] * Please name any agencies selected above. [facility] * Additional services required to return to the preadmission environment? No * Can the patient safely return to the preadmission environment? Yes * Has this patient been hospitalized within the prior 30 days at any hospital? No Last DP export: 08/04/19 4:43 p Patient Name: BEE GARNER Page [phone] at 1852 All edits/amendments must be made on the electronic document DICTATION DATE: 08/04/191851 LAUNDERETTE ATTENDANT: DULCE 08/04/191851 RPT#: [id number] DC DATE: STATUS: ADM IN [facility] [address] [place] [address] END OF REPORT
--- NOTE | 2019-08-04 19:49 | NUR ---
FAMILY IS WITH PT PT AROUSES EASILY BUT VERY HARD OF HEARING SKIN WARM AND DRY LUNGS SOUND CONGESTED WITH CRACKLES AND POSSIBLE WHEEZING PT COUGHING A LOT WELL BED IS LOW AND LOCKED AND CALL LIGHT IS IN REACH FAMILY IS ASKING THAT ALL COMFORT MEASURES BE DONE
--- NOTE | 2019-08-05 07:15 | NUR ---
PT RESTING IN BED, SHIFT ASSESSMENT PERFORMED. PER PT POA, SHE WOULD LIKE PT TO DISCHARGE BACK TO [facility] WITH [facility] Y[facility]ON[facility]. ADVISED PT THAT CASE MANAGEMENT WILL BE NOTIFIED. DENIES ANY OTHER NEEDS AT THIS TIME, WILL CONT TO FOLLOW POC
--- NOTE | 2019-08-05 09:39 | MORECARE ---
CASE MANAGEMENT DISCHARGE SUMMARY PATIENT: BEE GARNER UNIT: [id number] ADM DATE: 08/03/19 AGE: 79 : 40 SEX: M ROOM/BED: D.3953 AUTHOR: HAMMAD,DOC PHYSICIAN: REFERRING PHYSICIAN: NIDIA JIMENEZ MD DATE OF SERVICE: 08/05/19 Discharge Plan Patient Name: BEE GARNER Facility: [facility]:[place] : 1940 Planned Disposition: Anticipated Discharge Date: Discharge Date: Expected LOS: Initial Reviewer: [id number] Initial Review Date: 08/04/2019 Generated: 08/05/19 10:39 am Comments DCP- Discharge Planning Updated by [email or web address]: Ivon Winters on 08/04/19 4:[address] 1630 CM notified that patient is to go back to hospice. CM attempted to call [facility] to find out if patient is to be admitted there. CM could not get anyone to answer the phone. Family would like for patient [facility]. CM explained that [facility] doesn't have a contract with that [facility]osp[facility]. CM explained that the only company [facility] has a contract with is [facility]. Patient isn't taking any pain medications or anything for anxiety CM doesn't think that [facility] would find patient to be inpatient appropriate GIP. Family has decided to wait until am for Hospice. CM will check with [facility] in am about admission. The patient will be comfort care throughout the night then we will check on placement in am and readmission to hospice. CM will continue to follow and assist as needed with discharge planning / needs. Appended by Ivon Winters on 08/04/2019 17:36 CDT: 1730 Spoke with daughter Jessica JUNE she stated he is not going to in that care home. The plan at this time is for patient to discharge back to his apartment with Hospice and [facility] services around the clock care. Hospice is telling family that they will provide care around the clock for 5 days. CM will continue to follow and assist as needed with discharge planning / needs. DCP- Discharge Planning Updated by [id number]: Ivon Winters on 08/04/19 3:[address] Patient Name: BEE GARNER Admission Status: ER Accout number: [id number] Admission Date: 08-03-2019 : 1940 Admission Diagnosis: Attending: NIDIA JIMENEZ Current LOS: 1 Anticipated DC Date: Planned Disposition: Primary Insurance: [facility] MEDICARE SOLUTIONS Discharge Planning Comments: CM spoke with one of his care givers that was at bedside. Patient currently not responding. Oly is his cna caregiver from [facility]. Oly stated he has been at home with [facility] and [facility]. His Hospice was revoked yesterday when came into hospital. CM called to confirm that Hospice was revoked. CM called and spoke with Docent Coordinator at [facility] and she stated that it had been revoked 08/03/19. They would gladly readmit once discharged if they patient desired. Jessie Cano -Assistant Refinery Operator [phone] with [facility] called and stated they have been working on getting patient placed at [facility]. Jessie stated that [facility] should have all the paperwork there to admit after discharge. CM will contine to follow and assist as needed with discharge planning / needs. Accountant Auditor: Ivon Winters DCP- Discharge Planning Updated by [id number]: Cara Hall on 08/03/19 10:[address] CM contacted Shanice mann [facility] to determine which hospice patient discharged home with, from their facility[facility]. CM contacted [facility], Care #[phone] for patient's hospice diagnosis. Per Ping, patient was admitted to their service for COPD. Patient has a caregiver, Oumou, with [facility]. DCPIA - Discharge Planning Initial Assessment Updated by [email or web address]: Ivon Winters on 08/04/19 6:50 pm * Is the patient Alert and Oriented? No * Preadmission Environment Hospice * Facility Name [facility] * ADLs Partial Dependent * Partial ADLs (Assistance needed) Bathing Dressing * Other Equipment DME SUPPLIED BY HOSPICE * List name and contact numbers for known caregivers / representatives who currently or will assist patient after discharge: JESSICA RUSH - POA - [phone] CHRISTOPHER VILLAGRAN - FRIEND - [phone], * Verbal permission to speak to the caregivers and representatives has been obtained from the patient. N/A * Community resources currently utilized [facility] * Please name any agencies selected above. [facility] * Additional services required to return to the preadmission environment? No * Can the patient safely return to the preadmission environment? Yes * Has this patient been hospitalized within the prior 30 days at any hospital? No External Providers External Provider: [facility] Next Contact Date: 08/05/2019 Service Request Date: Service Type: Resolution: Reviewer: Comments: Coverage Notice Reviewer: [id number] - Dylon Huertas Notice Issued Date-Time: 08/05/2019 7:45 Notice Type: IM Discharge Notice Notice Delivered To: Family Member Relationship to Patient: Daughter in Law Model Photographers' Name: JESSICA RUSH Delivery Method: HAND - Hand Delivered Nohemi Days: Prior Verbal Notification: Recipient Understood Notice: Yes Recipient Signature: Yes Med Rec Note Co-signed by Attending: Coverage Notice Comment: Last DP export: 08/04/19 5:52 p Patient Name: BEE GARNER Page [id number] at 0939 All edits/amendments must be made on the electronic document DICTATION DATE: 08/05/19938 EXHIBITIONS CURATOR: DULCE 08/05/19938 RPT#: [id number] DC DATE: STATUS: ADM IN [facility] [address] [place] [address] END OF REPORT
--- NOTE | 2019-08-05 09:45 | NUR ---
UNABLE TO WAKE PT WITH [facility]ER[facility]. POA AT BEDSIDE AND SHE ATTEMPTED WELL AND PT WOULD NOT WAKE UP. CASE MANAGEMENT IS IN THE PROCESS OF HOSPICE ADMISSION. HELD AM MEDICATIONS. ADVISE FAMILY NOT TO ATTEMPT TO FEED PT UNTIL A NURSE ENSURES PT IS ALERT ENOUGH TO SAFELY EAT/DRINK. POA VERBALIZES UNDERSTANDING,
--- NOTE | 2019-08-05 09:46 | MORECARE ---
CASE MANAGEMENT DISCHARGE SUMMARY PATIENT: BEE GARNER UNIT: [id number] ADM DATE: 08/03/19 AGE: 79 : 40 SEX: M ROOM/BED: D.6983 AUTHOR: HAMMAD,DOC PHYSICIAN: REFERRING PHYSICIAN: NIDIA JIMENEZ MD DATE OF SERVICE: 08/05/19 Discharge Plan Patient Name: BEE GARNER Facility: [facility]:[place] : 1940 Planned Disposition: Home with Hospice Anticipated Discharge Date: 08/05/19 Discharge Date: Expected LOS: 2 Initial Reviewer: [email or web address] Initial Review Date: 08/04/2019 Generated: 08/05/19 10:46 am Comments DCP- Discharge Planning Updated by [email or web address]: Ivon Winters on 08/04/19 4:[address] 1630 CM notified that patient is to go back to hospice. CM attempted to call [facility] to find out if patient is to be admitted there. CM could not get anyone to answer the phone. Family would like for patient to be admitted [facility] to [facility]. CM explained that [facility] doesn't have a contract with that Hospice Company. CM explained that the only company [facility] has a contract with is [facility]. Patient isn't taking any pain medications or anything for anxiety CM doesn't think that [facility] would find patient to be inpatient appropriate GIP. Family has decided to wait until am for Hospice. CM will check with [facility] in am about admission. The patient will be comfort care throughout the night then we will check on placement in am and readmission to hospice. CM will continue to follow and assist as needed with discharge planning / needs. Appended by Ivon Winters on 08/04/2019 17:36 CDT: 1730 Spoke with daughter Jeovany [place] POA she stated he is not going to in that assisted. The plan at this time is for patient to discharge back to his apartment with [facility] and [facility] services around the clock care. Hospice is telling family that they will provide care around the clock for 5 days. CM will continue to follow and assist as needed with discharge planning / needs. DCP- Discharge Planning Updated by [email or web address]: Ivon Winters on 08/04/19 3:[address] Patient Name: BEE GARNER Admission Status: ER Accout number: [id number] Admission Date: 08-03-2019 : 1940 Admission Diagnosis: Attending: NIDIA JIMENEZ Current LOS: 1 Anticipated DC Date: Planned Disposition: Primary Insurance: [facility] MEDICARE SOLUTIONS Discharge Planning Comments: CM spoke with one of his care givers that was at bedside. Patient currently not responding. Oly is his healthcare business analyst from [facility]. Oly stated he has been at home with [facility] and [facility]. His Hospice was revoked yesterday when came into hospital. CM called to confirm that Hospice was revoked. CM called and spoke with Fiber Picker at [facility] and she stated that it had been revoked 08/03/19. They would gladly readmit once discharged if they patient desired. Jessie Cano -Padded Products Finisher [phone] with [facility] called and stated they have been working on getting patient placed at [facility]. Jessie stated that [facility] should have all the paperwork there to admit after discharge. CM will contine to follow and assist as needed with discharge planning / needs. Bus Trolley And Taxi Instructor: Ivon Winters DCP- Discharge Planning Updated by [id number]: Cara Hall on 08/03/19 10:[address] CM contacted Shanice [facility] to determine which hospice patient discharged home with, from their facility: [facility]. CM contacted [facility], Care #[phone] for patient's hospice diagnosis. Per Ping, patient was admitted to their service for COPD. Patient has a caregiver, Oumou, with [facility]. DCPIA - Discharge Planning Initial Assessment Updated by [email or web address]: Ivon Winters on 08/04/19 6:50 pm * Is the patient Alert and Oriented? No * Preadmission Environment Hospice * Facility Name [facility] * ADLs Partial Dependent * Partial ADLs (Assistance needed) Bathing Dressing * Other Equipment DME SUPPLIED BY HOSPICE * List name and contact numbers for known caregivers / representatives who currently or will assist patient after discharge: JEOVANY RUSH - [place] - [phone] CHRISTOPHER VILLAGRAN - [place] - [phone], * Verbal permission to speak to the caregivers and representatives has been obtained from the patient. N/A * Community resources currently utilized [facility] * Please name any agencies selected above. [facility] * Additional services required to return to the preadmission environment? No * Can the patient safely return to the preadmission environment? Yes * Has this patient been hospitalized within the prior 30 days at any hospital? No Coverage Notice Reviewer: [id number] Victor Hugo Huertas Notice Issued Date-Time: 08/05/2019 7:45 Notice Type: IM Discharge Notice Notice Delivered To: Family Member Relationship to Patient: Daughter in Law Household Cook Name: JEOVANY RUSH Delivery Method: HAND - Hand Delivered Nohemi Days: Prior Verbal Notification: Recipient Understood Notice: Yes Recipient Signature: Yes Med Rec Note Co-signed by Attending: Coverage Notice Comment: Last DP export: 08/05/19 8:39 a Patient Name: BEE GARNER Page 84261 at 0946 All edits/amendments must be made on the electronic document DICTATION DATE: 08/05/19945 WARDROBE CONSULTANT: DULCE 08/05/19945 RPT#: [id number] DC DATE: STATUS: ADM IN [facility] [address] [place] [address] END OF REPORT
--- NOTE | 2019-08-05 10:07 | MORECARE ---
CASE MANAGEMENT DISCHARGE SUMMARY PATIENT: BEE GARNER UNIT: [id number] ADM DATE: 08/03/19 AGE: 79 : 40 SEX: M ROOM/BED: D.2113 AUTHOR: HAMMAD,DOC PHYSICIAN: REFERRING PHYSICIAN: NIDIA JIMENEZ MD DATE OF SERVICE: 08/05/19 Discharge Plan Patient Name: BEE GARNER Facility: [facility]:[place] : 1940 Planned Disposition: Home with Hospice Anticipated Discharge Date: 08/05/19 Discharge Date: Expected LOS: 2 Initial Reviewer: [email or web address] Initial Review Date: 08/04/2019 Generated: 08/05/19 11:07 am Comments DCP- Discharge Planning Updated by [id number]: Dylon Huertas on 08/05/19 9:[address] Patient Name: BEE GARNER Encounter No: [id number] : 1940 Primary Insurance: [facility] MEDICARE SOLUTIONS Anticipated DC Date: 08-05-2019 Planned Disposition: Home with Hospice External Planned Provider: [facility] DCP follow-up note: DANIKA RECEIVED REQUEST FROM BEDSIDE NURSE TO SPEAK TO PT AND DAUGHTER IN LAW / POS IN ROOM REGARDING HOSPICE, SHE IS WANTING TO DISCHARGE TODAY WITH [facility] FOR PT AT HOME. DANIKA MET WITH PT AND DAUGHTER IN LAW, JEOVANY RUSH, POWER OF ADON. SHE CONFIRMED PLAN. PT WAS IN HOSPICE WITH [facility] PRIOR TO HOSPITALIZATION. SHE DOES NOT WANT PT PLACED IN A SNF AND WANTS PT TO GO TO HIS APARTMENT WITH [facility], SHE WILL ARRANGE CAREGIVERS FOR PT. CHOICE SIGNED FOR [facility]. IMPORTANT MESSAGE FROM MEDICARE PROVIDED AND EXPLAINED. JEOVANY WOULD LIKE PT DISCHARGED HOME TODAY WITH HOSPICE. DANIKA EXPLAINED THIS WILL DEPEND ON HOSPICE'S ABILITY TO ACCEPT AND MAKE ALL ARRANGEMENTS TODAY. CM CALLED [facility], , SPOKE TO KEELY, PROVIDED REFERRAL INFORMATION AND ASKED FOR DISCHARGE ARRANGEMENTS FOR TODAY PER FAMILY REQUEST. CM FAXED REFERRAL TO [facility] AT [phone]. DANIKA RECEIVED CALL FROM LAINE TUTTLE OF [facility]OS[facility] WHO REPORTS THEY WILL HAVE TO DISCUSS ACCEPTANCE OF PT WITH DR. DE LA TORRE OF [facility]OS[facility] AND IF THEY WILL ACCEPT, THEY HAVE TO HAVE A FACE TO FACE BEFORE ACCEPTANCE AND THEY ONLY PROVIDE CRISIS CARE FOR 5 DAYS, IT WILL BE UP TO FAMILY TO PROVIDE 24 HOUR CAREGIVERS. PT WAS ALREADY SET UP TO ENTER [facility] PRIOR TO THIS HOSPITAL ADMISSION AND HOSPICE BELIEVES THIS MAY BE BEST ADN WILL CALL PT'S POA AND DISCUSS HOSPICE CARE AND ARRANGEMENTS. LAINE DOES NOT THINK ALL ARRANGEMENTS WILL BE COMPLETED TODAY. CM WAITING [facility] ADMISSION DETERMINATION AND HOME ARRANGEMENTS TO BE COMPLETED IF ACCEPTED. IF ACCEPTED, PT WILL TRANSPORT HOME VIA AMBULANCE. Dylon Huertas, CASE MANAGEMENT DCP- Discharge Planning Updated by [id number]: Ivon Winters on 08/04/19 4:[address] 1630 CM notified that patient is to go back to hospice. CM attempted to call [facility] to find out if patient is to be admitted there. CM could not get anyone to answer the phone. Family would like for patient to be admitted back to [facility]. CM explained that [facility] doesn't have a contract with that [facility]osp[facility]. CM explained that the only company [facility] has a contract with is [facility]. Patient isn't taking any pain medications or anything for anxiety CM doesn't think that [facility] would find patient to be inpatient appropriate GIP. Family has decided to wait until am for Hospice. CM will check with [facility] in am about admission. The patient will be comfort care throughout the night then we will check on placement in am and readmission to hospice. CM will continue to follow and assist as needed with discharge planning / needs. Appended by Ivon Winters on 08/04/2019 17:36 CDT: 1730 Spoke with daughter Jeovany Rush Medical POA she stated he is not going to in that correction. The plan at this time is for patient to discharge back to his apartment with Hospice and [facility] services around the clock care. Hospice is telling family that they will provide care around the clock for 5 days. CM will continue to follow and assist as needed with discharge planning / needs. DCP- Discharge Planning Updated by [email or web address]: Ivon Winters on 08/04/19 3:[address] Patient Name: BEE GARNER Admission Status: ER Accout number: [id number] Admission Date: 08-03-2019 : 1940 Admission Diagnosis: Attending: NIDIA JIMENEZ Current LOS: 1 Anticipated DC Date: Planned Disposition: Primary Insurance: [facility] MEDICARE SOLUTIONS Discharge Planning Comments: CM spoke with one of his care givers that was at bedside. Patient currently not responding. Oly is his behavioral health care manager from [facility]. Oly stated he has been at home with [facility] and [facility]. His Hospice was revoked yesterday when came into hospital. CM called to confirm that Hospice was revoked. CM called and spoke with Visiting Nurse at [facility] and she stated that it had been revoked 08/03/19. They would gladly readmit once discharged if they patient desired. Jessie Cano -Supervisor Remelt [phone] with [facility] called and stated they have been working on getting patient placed at [facility]. Jessie stated that [facility] should have all the paperwork there to admit after discharge. CM will contine to follow and assist as needed with discharge planning / needs. Care Management Coordinator: Ivon Winters DCP- Discharge Planning Updated by [id number]: Cara Hall on 08/03/19 10:[address] CM contacted Shanice with [facility] to determine which hospice patient discharged home with, from their facility: [facility]. CM contacted [facility], Care #[phone] for patient's hospice diagnosis. Per Ping, patient was admitted to their service for COPD. Patient has a caregiver, Oumou, with [facility]. DCPIA - Discharge Planning Initial Assessment Updated by [email or web address]: Ivon Winters on 08/04/19 6:50 pm * Is the patient Alert and Oriented? No * Preadmission Environment Hospice * Facility Name [facility] * ADLs Partial Dependent * Partial ADLs (Assistance needed) Bathing Dressing * Other Equipment DME SUPPLIED BY HOSPICE * List name and contact numbers for known caregivers / representatives who currently or will assist patient after discharge: JEOVANY RUSH - POA - [phone] CHRISTOPHER VILLAGRAN - FRIEND - [phone], * Verbal permission to speak to the caregivers and representatives has been obtained from the patient. N/A * Community resources currently utilized [facility] * Please name any agencies selected above. [facility] * Additional services required to return to the preadmission environment? No * Can the patient safely return to the preadmission environment? Yes * Has this patient been hospitalized within the prior 30 days at any hospital? No Coverage Notice Reviewer: [id number] Huertas Notice Issued Date-Time: 08/05/2019 7:45 Notice Type: IM Discharge Notice Notice Delivered To: Family Member Relationship to Patient: Daughter in Law Spray Gun Sizer Name: JEOVANY RUSH Delivery Method: HAND - Hand Delivered Nohemi Days: Prior Verbal Notification: Recipient Understood Notice: Yes Recipient Signature: Yes Med Rec Note Co-signed by Attending: Coverage Notice Comment: Reviewer: [id number] Huertas Notice Issued Date-Time: 08/05/2019 7:45 Notice Type: Patient Choice Letter Notice Delivered To: Family Member Relationship to Patient: Daughter in Law Spray Gun Sizer Name: JEOVANY RUSH Delivery Method: HAND - Hand Delivered Nohemi Days: Prior Verbal Notification: Recipient Understood Notice: Yes Recipient Signature: Yes Med Rec Note Co-signed by Attending: Coverage Notice Comment: [facility] Last DP export: 08/05/19 8:46 a Patient Name: BEE GARNER Page 19797 at 1007 All edits/amendments must be made on the electronic document DICTATION DATE: 08/05/19 1007 MAILING SECTION CLERK: DULCE 08/05/19 [facility] RPT#: [id number] DC DATE: STATUS: ADM IN [facility] [address] [place] [address] END OF REPORT
--- NOTE | 2019-08-05 11:25 | MORECARE ---
CASE MANAGEMENT DISCHARGE SUMMARY PATIENT: BEE GARNER UNIT: [id number] ADM DATE: 08/03/19 AGE: 79 : 40 SEX: M ROOM/BED: D.2113 AUTHOR: HAMMAD,DOC PHYSICIAN: REFERRING PHYSICIAN: NIDIA JIMENEZ MD DATE OF SERVICE: 08/05/19 Discharge Plan Patient Name: BEE GARNER Facility: [facility]:[place] : 1940 Planned Disposition: Home with Hospice Anticipated Discharge Date: 08/05/19 Discharge Date: Expected LOS: 2 Initial Reviewer: [id number] Initial Review Date: 08/04/2019 Generated: 08/05/19 12:25 pm Comments DCP- Discharge Planning Updated by [id number]: Dylon Huertas on 08/05/19 10:[address] Patient Name: BEE GARNER Encounter No: [id number] : 1940 Primary Insurance: [facility] [employer] [employer]UTIONS Anticipated DC Date: 08-05-2019 Planned Disposition: Home with Hospice External Planned Provider: [facility] DCP follow-up note: DANIKA RECEIVED REQUEST FROM BEDSIDE NURSE TO SPEAK TO PT AND DAUGHTER IN LAW / POS IN ROOM REGARDING HOSPICE, SHE IS WANTING TO DISCHARGE TODAY WITH [facility] FOR PT AT HOME. DANIKA MET WITH PT AND DAUGHTER IN LAW, JEOVANY RUSH, POWER OF CREPING MACHINE OPERATOR. SHE CONFIRMED PLAN. PT WAS IN HOSPICE WITH [facility] PRIOR TO HOSPITALIZATION. SHE DOES NOT WANT PT PLACED IN A SKILLED NURSING AND WANTS PT TO GO TO HIS APARTMENT WITH HOSPICE HOME CARE, SHE WILL ARRANGE CAREGIVERS FOR PT. CHOICE SIGNED FOR HOSPICE HOME [facility]. IMPORTANT MESSAGE FROM MEDICARE PROVIDED AND EXPLAINED. JEOVANY WOULD LIKE PT DISCHARGED HOME TODAY WITH HOSPICE. DANIKA EXPLAINED THIS WILL DEPEND ON HOSPICE'S ABILITY TO ACCEPT AND MAKE ALL ARRANGEMENTS TODAY. CM CALLED [facility], , SPOKE TO KEELY, PROVIDED REFERRAL INFORMATION AND ASKED FOR DISCHARGE ARRANGEMENTS FOR TODAY PER FAMILY REQUEST. CM FAXED REFERRAL TO [facility] AT [phone]. DANIKA RECEIVED CALL FROM LAINE TUTTLE OF [facility]OS[facility]ICE [facility] WHO REPORTS THEY WILL HAVE TO DISCUSS ACCEPTANCE OF PT WITH DR. DE LA TORRE OF HOSPICE HOME [facility] AND IF THEY WILL ACCEPT, THEY HAVE TO HAVE A FACE TO FACE BEFORE ACCEPTANCE AND THEY ONLY PROVIDE CRISIS CARE FOR 5 DAYS, IT WILL BE UP TO FAMILY TO PROVIDE 24 HOUR CAREGIVERS. PT WAS ALREADY SET UP TO ENTER [facility] PRIOR TO THIS HOSPITAL ADMISSION AND HOSPICE BELIEVES THIS MAY BE BEST ADN WILL CALL PT'S POA AND DISCUSS HOSPICE CARE AND ARRANGEMENTS. LAINE DOES NOT THINK ALL ARRANGEMENTS WILL BE COMPLETED TODAY. CM WAITING [facility] ADMISSION DETERMINATION AND HOME ARRANGEMENTS TO BE COMPLETED IF ACCEPTED. IF ACCEPTED, PT WILL TRANSPORT HOME VIA AMBULANCE. Dylon Huertas, CASE MANAGEMENT Appended by Dylon Huertas on 08/05/2019 11:19 CDT: CM SPOKE TO CARE TEAM AT MULTIDISCIPLINARY TEAM MEETING, DR. JIMENEZ DIRECTED CM TO DISCUSS ADDITIONAL HOSPICE OPTIONS PT'S FAMILY. CM MET WITH PT AND DAUGHER IN LAW IN ROOM. PT'S DAUGHTER IN LAW WANTS TO WAIT AND REPORTS THAT SHE HAS FAMILY AND PERSONAL CARE PLANNED FOR 24 HOUR CARE AT PT'S APARTMENT AND WILL TALK WITH THE HOSPICE HOME CARE NURSE THIS MORNING BEFORE MAKING ANY FUTHER DECISIONS. DAUGHTER IN LAW/POA WILL NOTIFY CM OF HER DECISION AFTER MEETING WITH [facility] TODAY. BEDSIDE NURSE NOTIFIED. CM WAITING [facility] ADMISSION DETERMINATION AND HOME ARRANGEMENTS TO BE COMPLETED IF ACCEPTED. IF ACCEPTED, PT WILL TRANSPORT HOME VIA AMBULANCE. Dylon Huertas CASE MANAGEMENT DCP- Discharge Planning Updated by [id number]: Ivon Winters on 08/04/19 4:[address] 1630 CM notified that patient is to go back to hospice. CM attempted to call [facility] to find out if patient is to be admitted there. CM could not get anyone to answer the phone. Family would like for patient to be admitted back to [facility]. DANIKA explained that [facility] doesn't have a contract with that Hospice Company. DANIKA explained that the only company [facility] has a contract with is [facility]. Patient isn't taking any pain medications or anything for anxiety CM doesn't think that [facility] would find patient to be inpatient appropriate GIP. Family has decided to wait until am for Hospice. CM will check with [facility] in am about admission. The patient will be comfort care throughout the night then we will check on placement in am and readmission to hospice. CM will continue to follow and assist as needed with discharge planning / needs. Appended by Ivon Winters on 08/04/2019 17:36 CDT: 1730 Spoke with daughter Jeovany JUNE she stated he is not going to in that alf. The plan at this time is for patient to discharge back to his apartment with Hospice and [facility] services around the clock care. Hospice is telling family that they will provide care around the clock for 5 days. CM will continue to follow and assist as needed with discharge planning / needs. DCP- Discharge Planning Updated by [id number]: Ivon Winters on 08/04/19 3:[address] Patient Name: BEE GARNER Admission Status: ER Accout number: [id number] Admission Date: 08-03-2019 : 1940 Admission Diagnosis: Attending: NIDAI JIMENEZ Current LOS: 1 Anticipated DC Date: Planned Disposition: Primary Insurance: [facility] [employer] SOLUTIONS Discharge Planning Comments: CM spoke with one of his care givers that was at bedside. Patient currently not responding. Oly is his auto care center manager from [facility]. Oly stated he has been at home with [facility] and [facility]. His Hospice was revoked yesterday when came into hospital. CM called to confirm that Hospice was revoked. CM called and spoke with Local Company Tanker Driver at [facility] and she stated that it had been revoked 08/03/19. They would gladly readmit once discharged if they patient desired. Jessie Cano -Film Replacement Orderer [phone] with [facility] called and stated they have been working on getting patient placed at [facility]. Jessie stated that [facility] should have all the paperwork there to admit after discharge. CM will contine to follow and assist as needed with discharge planning / needs. Yoke Presser: Ivon Winters DCP- Discharge Planning Updated by [id number]: Cara Hall on 08/03/19 10:[address] CM contacted Shanice mann [facility] to determine which hospice patient discharged home with, from their facility: [facility]. CM contacted [facility], Care #[phone] for patient's hospice diagnosis. Per Ping, patient was admitted to their service for COPD. Patient has a caregiver, Oumou, with [facility]. DCPIA - Discharge Planning Initial Assessment Updated by [id number]: Ivon Winters on 08/04/19 6:50 pm * Is the patient Alert and Oriented? No * Preadmission Environment Hospice * Facility Name [facility] * ADLs Partial Dependent * Partial ADLs (Assistance needed) Bathing Dressing * Other Equipment DME SUPPLIED BY HOSPICE * List name and contact numbers for known caregivers / representatives who currently or will assist patient after discharge: JEOVANY RUSH - POA - [phone] CHRISTOPHER VILLAGRAN - [place] - [phone], * Verbal permission to speak to the caregivers and representatives has been obtained from the patient. N/A * Community resources currently utilized [facility] * Please name any agencies selected above. [facility] * Additional services required to return to the preadmission environment? No * Can the patient safely return to the preadmission environment? Yes * Has this patient been hospitalized within the prior 30 days at any hospital? No Coverage Notice Reviewer: [id number] Huertas Notice Issued Date-Time: 08/05/2019 7:45 Notice Type: IM Discharge Notice Notice Delivered To: Family Member Relationship to Patient: Daughter in Law Able Bodied Watchman Name: JEOVANY RUSH Delivery Method: HAND - Hand Delivered Nohemi Days: Prior Verbal Notification: Recipient Understood Notice: Yes Recipient Signature: Yes Med Rec Note Co-signed by Attending: Coverage Notice Comment: Reviewer: [id number] Huertas Notice Issued Date-Time: 08/05/2019 7:45 Notice Type: Patient Choice Letter Notice Delivered To: Family Member Relationship to Patient: Daughter in Law Able Bodied Watchman Name: JEOVANY RUSH Delivery Method: HAND - Hand Delivered Nohemi Days: Prior Verbal Notification: Recipient Understood Notice: Yes Recipient Signature: Yes Med Rec Note Co-signed by Attending: Coverage Notice Comment: [facility] Last DP export: 08/05/19 9:07 a Patient Name: BEE GARNER Page [id number] at 1125 All edits/amendments must be made on the electronic document DICTATION DATE: 08/05/191124 SECURITIES CONSULTANT: DULCE 08/05/191124 RPT#: [id number] DC DATE: STATUS: ADM IN [facility] [address] [place] [address] END OF REPORT
--- NOTE | 2019-08-05 12:13 | NUR ---
PT FAMILY CAME TO NURSING STATION AND ASKED IF PT COULD HAVE SOME CHOCOLATE ICE CREAM. ADVISED FAMILY THAT NURSE WILL COME IN THERE IN JUST A SECOND TO MAKE SURE PT WAS AWAKE ENOUGH TO EAT IT. PT FAMILY WENT BACK INTO ROOM. UPON ENTERING PT ROOM, NURSE NOTICED CHOCOLATE ICE CREAM WAS SITTING ON PT SIDE TABLE. ASKED FAMILY WHO GOT THEM THE ICE CREAM AND FAMILY STATED THAT THEY ASKED THE OCEAN FREIGHT MANAGER FOR THE ICE CREAM. REPOSITIONED PT AND GAVE PT A SIP OF WATER. PT SWALLOWED WATER OUT OF A STRAW WITHOUT CUEING AND NO SIGNS OF ASPIRATION WERE NOTED. NURSE TOLD FAMILY THEY CAN FEED PT THE ICE CREAM LONG HE STAYS ELEVATED AND CONTINUES TO STAY ALERT.
--- NOTE | 2019-08-05 12:15 | MORECARE ---
CASE MANAGEMENT DISCHARGE SUMMARY PATIENT: BEE GARNER UNIT: [id number] ADM DATE: 08/03/19 AGE: 79 : 40 SEX: M ROOM/BED: D.2113 AUTHOR: HAMMAD,DOC PHYSICIAN: REFERRING PHYSICIAN: NIDIA JIMENEZ MD DATE OF SERVICE: 08/05/19 Discharge Plan Patient Name: BEE GARNER Facility: [facility]:[place] : 1940 Planned Disposition: Home with Hospice Anticipated Discharge Date: 08/05/19 Discharge Date: Expected LOS: 2 Initial Reviewer: [email or web address] Initial Review Date: 08/04/2019 Generated: 08/05/19 1:15 pm Comments DCP- Discharge Planning Updated by [email or web address]: Dylon Huertas on 08/05/19 11:[address] Patient Name: BEE GARNER Encounter No: [id number] : 1940 Primary Insurance: [facility] [employer]UT[employer] Anticipated DC Date: 08-05-2019 Planned Disposition: Home with Hospice External Planned Provider: [facility] DCP follow-up note: CM SPOKE TO PT'S DAUGHTER IN LAW / POA, JEOVANY SALCEDOON WHO REPORTS SPEAKING TO HOSPICE HOME CARE AND REQUESTS EVALUATION FOR INPATIENT HOSPICE WITH [facility]. CHOICE SIGNED. JEOVANY ASSURED CM THAT IF PT GOES HOME, SHE HAS ASSISTANCE OF FAMILY AND SENIOR LIVING CAREGIVERS FOR 24 HOUR HOME CARE IF NEEDED. CM CALLED [facility], , SPOKE TO CYNTHIA AND PROVIDED REFERRAL INFORMATION. CM FAXED REFERRAL TO [facility] AT [phone]. CM WAITING [facility] EVALUATION FOR INPATIENT HOSPICE AND IF NOT QUALIFY FOR INPATIENT HOSPICE, POSSIBLY HOME HOSPICE ARRANGEMENTS. ROGER Luna DCP- Discharge Planning Updated by [id number]: Dylon Huertas on 08/05/19 10:[address] Patient Name: BEE GARNER Encounter No: [id number] : 1940 Primary Insurance: [facility] [employer] Anticipated DC Date: 08-05-2019 Planned Disposition: Home with Hospice External Planned Provider: [facility] DCP follow-up note: CM RECEIVED REQUEST FROM BEDSIDE NURSE TO SPEAK TO PT AND DAUGHTER IN LAW / POS IN ROOM REGARDING HOSPICE, SHE IS WANTING TO DISCHARGE TODAY WITH [facility] FOR PT AT HOME. CM MET WITH PT AND DAUGHTER IN LAW, JEOVANY RUSH, POWER OF NYLON MACHINE OPERATOR. SHE CONFIRMED PLAN. PT WAS IN HOSPICE WITH [facility]OSPICE HOME [facility] PRIOR TO HOSPITALIZATION. SHE DOES NOT WANT PT PLACED IN A SNF AND WANTS PT TO GO TO HIS APARTMENT WITH HOSPICE HOME CARE, SHE WILL ARRANGE CAREGIVERS FOR PT. CHOICE SIGNED FOR HOSPICE HOME CARE. IMPORTANT MESSAGE FROM MEDICARE PROVIDED AND EXPLAINED. JEOVANY WOULD LIKE PT DISCHARGED HOME TODAY WITH HOSPICE. CM EXPLAINED THIS WILL DEPEND ON HOSPICE'S ABILITY TO ACCEPT AND MAKE ALL ARRANGEMENTS TODAY. CM CALLED [facility], , SPOKE TO KEELY, PROVIDED REFERRAL INFORMATION AND ASKED FOR DISCHARGE ARRANGEMENTS FOR TODAY PER FAMILY REQUEST. CM FAXED REFERRAL TO [facility] AT [phone]. CM RECEIVED CALL FROM LAINE TUTTLE OF [facility] WHO REPORTS THEY WILL HAVE TO DISCUSS ACCEPTANCE OF PT WITH DR. DE LA TORRE OF HOSPICE HOME [facility] AND IF THEY WILL ACCEPT, THEY HAVE TO HAVE A FACE TO FACE BEFORE ACCEPTANCE AND THEY ONLY PROVIDE CRISIS CARE FOR 5 DAYS, IT WILL BE UP TO FAMILY TO PROVIDE 24 HOUR CAREGIVERS. PT WAS ALREADY SET UP TO ENTER [facility] PRIOR TO THIS HOSPITAL ADMISSION AND HOSPICE BELIEVES THIS MAY BE BEST ADN WILL CALL PT'S POA AND DISCUSS HOSPICE CARE AND ARRANGEMENTS. LAINE DOES NOT THINK ALL ARRANGEMENTS WILL BE COMPLETED TODAY. CM WAITING [facility] ADMISSION DETERMINATION AND HOME ARRANGEMENTS TO BE COMPLETED IF ACCEPTED. IF ACCEPTED, PT WILL TRANSPORT HOME VIA AMBULANCE. Dylon Huertas, CASE MANAGEMENT Appended by Dylon Huertas on 08/05/2019 11:19 CDT: DANIKA SPOKE TO CARE TEAM AT MULTIDISCIPLINARY TEAM MEETING, DR. JIMENEZ DIRECTED CM TO DISCUSS ADDITIONAL HOSPICE OPTIONS PT'S FAMILY. CM MET WITH PT AND BRANDINER IN LAW IN ROOM. PT'S DAUGHTER IN LAW WANTS TO WAIT AND REPORTS THAT SHE HAS FAMILY AND PERSONAL CARE PLANNED FOR 24 HOUR CARE AT PT'S APARTMENT AND WILL TALK WITH THE HOSPICE HOME CARE NURSE THIS MORNING BEFORE MAKING ANY FUTHER DECISIONS. DAUGHTER IN LAW/POA WILL NOTIFY CM OF HER DECISION AFTER MEETING WITH [facility]OS[facility]ICE [facility] TODAY. BEDSIDE NURSE NOTIFIED. CM WAITING [facility] ADMISSION DETERMINATION AND HOME ARRANGEMENTS TO BE COMPLETED IF ACCEPTED. IF ACCEPTED, PT WILL TRANSPORT HOME VIA AMBULANCE. Dylon Huertas, CASE MANAGEMENT DCP- Discharge Planning Updated by [id number]: Ivon Winters on 08/04/19 4:[address] 1630 CM notified that patient is to go back to hospice. CM attempted to call [facility] to find out if patient is to be admitted there. CM could not get anyone to answer the phone. Family would like for patient to be [facility] to [facility]. CM explained that [facility] doesn't have a contract with that Hospice Company. CM explained that the only company [facility] has a contract with is [facility]. Patient isn't taking any pain medications or anything for anxiety CM doesn't think that [facility] would find patient to be inpatient appropriate GIP. Family has decided to wait until am for Hospice. CM will check with [facility] in am about admission. The patient will be comfort care throughout the night then we will check on placement in am and readmission to hospice. CM will continue to follow and assist as needed with discharge planning / needs. Appended by Ivon Winters on 08/04/2019 17:36 CDT: 1710 Spoke with daughter Jeovany JUNE she stated he is not going to in that assisted. The plan at this time is for patient to discharge back to his apartment with [facility] and [facility] services around the clock care. Hospice is telling family that they will provide care around the clock for 5 days. CM will continue to follow and assist as needed with discharge planning / needs. DCP- Discharge Planning Updated by [email or web address]: Ivon Winters on 08/04/19 3:[address] Patient Name: BEE GARNER Admission Status: ER Accout number: [id number] Admission Date: 08-03-2019 : 1940 Admission Diagnosis: Attending: NIDIA JIMENEZ Current LOS: 1 Anticipated DC Date: Planned Disposition: Primary Insurance: [facility] [employer] Discharge Planning Comments: CM spoke with one of his care givers that was at bedside. Patient currently not responding. Oly is his skin care specialist from [facility]. Oly stated he has been at home with [facility] and [facility]. His Hospice was revoked yesterday when came into hospital. DANIKA called to confirm that Hospice was revoked. DANIKA called and spoke with Surgeon Assistant at [facility] and she stated that it had been revoked 08/03/19. They would gladly readmit once discharged if they patient desired. Jessie Cano -Building Code Administrator [phone] with [facility] called and stated they have been working on getting patient placed at [facility]. Jessie stated that [facility] should have all the paperwork there to admit after discharge. CM will contine to follow and assist as needed with discharge planning / needs. Rubber Goods Inspector Tester: Ivon Winters DCP- Discharge Planning Updated by [id number]: Cara Hall on 08/03/19 10:[address] CM contacted Shanice with [facility] to determine which hospice patient discharged home with, from their facility: [facility]. CM contacted [facility], Care #[phone] for patient's hospice diagnosis. Per Ping, patient was admitted to their service for COPD. Patient has a caregiver, Oumou, with [facility]. DCPIA - Discharge Planning Initial Assessment Updated by [id number]: Ivon Winters on 08/04/19 6:50 pm * Is the patient Alert and Oriented? No * Preadmission Environment Hospice * Facility Name [facility] * ADLs Partial Dependent * Partial ADLs (Assistance needed) Bathing Dressing * Other Equipment DME SUPPLIED BY HOSPICE * List name and contact numbers for known caregivers / representatives who currently or will assist patient after discharge: JEOVANY RUSH - [place]E - [phone] CHRISTOPHER VILLAGRAN - FRIEND - [phone], * Verbal permission to speak to the caregivers and representatives has been obtained from the patient. N/A * Community resources currently utilized [facility] * Please name any agencies selected above. [facility] * Additional services required to return to the preadmission environment? No * Can the patient safely return to the preadmission environment? Yes * Has this patient been hospitalized within the prior 30 days at any hospital? No External Providers External [facility] Next Contact Date: 08/05/2019 Service Request Date: Service Type: Resolution: Reviewer: Comments: Coverage Notice Reviewer: [id number] - Dylon Huertas Notice Issued Date-Time: 08/05/2019 7:45 Notice Type: IM Discharge Notice Notice Delivered To: Family Member Relationship to Patient: Daughter in Law Diesel Engine Fitter Name: JEOVANY RUSH Delivery Method: HAND - Hand Delivered Nohemi Days: Prior Verbal Notification: Recipient Understood Notice: Yes Recipient Signature: Yes Med Rec Note Co-signed by Attending: Coverage Notice Comment: Reviewer: [id number] Huertas Notice Issued Date-Time: 08/05/2019 7:45 Notice Type: Patient Choice Letter Notice Delivered To: Family Member Relationship to Patient: Daughter in Law Diesel Engine Fitter Name: JEOVANY RUSH Delivery Method: HAND - Hand Delivered Nohemi Days: Prior Verbal Notification: Recipient Understood Notice: Yes Recipient Signature: Yes Med Rec Note Co-signed by Attending: Coverage Notice Comment: [facility] Reviewer: [id number] Victor Hugo Huertas Notice Issued Date-Time: 08/05/2019 11:23 Notice Type: Patient Choice Letter Notice Delivered To: Family Member Relationship to Patient: Daughter in Law Diesel Engine Fitter Name: JEOVANY RUSH Delivery Method: HAND - Hand Delivered Nohemi Days: Prior Verbal Notification: Recipient Understood Notice: Yes Recipient Signature: Yes Med Rec Note Co-signed by Attending: Coverage Notice Comment: [facility] Last DP export: 08/05/19 10:25 a Patient Name: BEE GARNER Page [id number] at 1215 All edits/amendments must be made on the electronic document DICTATION DATE: 08/05/19 121 EQUITY HOLDER: DULCE 08/05/19 121 RPT#: [id number] DC DATE: STATUS: ADM IN [facility] [address] [place] [address] END OF REPORT
--- NOTE | 2019-08-05 14:46 | NUR ---
OT NOTE: EXTENSIVE AMOUNT OF TIME SPENT WITH PT TODAY. CAREGIVER WAS IN ROOM AND HAS WORKED WITH THIS PT FOR MONTHS. SHE REPORTED THAT PRIOR TO HIS FALL APPROX 1 MOS AGO, WHERE HE INJURED HIS SHOULDER, HE WAS ABLE TO TRANSFER WITH VERY MINIMAL ASSIST FROM BED TO ELEC CHAIR. FROM ELEC CHAIR, PT WAS ABLE TO MOVE INDEP THROUGH APPT AND OUTSIDE TO SMOKE A CIGARETTE. PT REQUIRED VERY MINIMAL ASSIST WITH ADLS BUT EXT ASSIST WITH BATHING. AFTER HE INJURED HIS SHOULDER, HE WAS SENT TO SNF FOR APPROX 1 MOS. FOLLOWING DC FROM SNF, PT REQUIRED SIMÓN LIFT FOR TRANSFERS AND TOTAL ASSIST WITH ADLS. TODAY, PT UNABLE TO FEED SELF, UNABLE TO PERFORM ANY DRESSING OR GROOMING TASKS; BED MOB WITH MAX ASSIST. DID NOT ATTEMPT TRANSFER DUE TO LETHARGY. LIMITED VERBAL RESPONSES FROM PT. DIFFICULTY FOLLOWING SIMPLE COMMANDS. ANNIE BERG, OTR/L
--- NOTE | 2019-08-05 16:39 | MORECARE ---
CASE MANAGEMENT DISCHARGE SUMMARY PATIENT: BEE GARNER UNIT: [id number] ADM DATE: 08/03/19 AGE: 79 : 40 SEX: M ROOM/BED: D.2113 AUTHOR: HAMMAD,DOC PHYSICIAN: REFERRING PHYSICIAN: NIDIA JIMENEZ MD DATE OF SERVICE: 08/05/19 Discharge Plan Patient Name: BEE GARNER Facility: [facility]:[place] : 1940 Planned Disposition: Home with Hospice Anticipated Discharge Date: 08/05/19 Discharge Date: Expected LOS: 2 Initial Reviewer: [id number] Initial Review Date: 08/04/2019 Generated: 08/05/19 5:38 pm Comments DCP- Discharge Planning Updated by [id number]: Dylon Huertas on 08/05/19 11:[address] Patient Name: BEE GARNER Encounter No: [id number] : 1940 Primary Insurance: [facility] MEDICARE SOLUTIONS Anticipated DC Date: 08-05-2019 Planned Disposition: Home with Hospice External Planned Provider: [facility] DCP follow-up note: CM SPOKE TO PT'S DAUGHTER IN LAW / POA, JEOVANY SALCEDOON WHO REPORTS SPEAKING TO HOSPICE HOME CARE AND REQUESTS EVALUATION FOR INPATIENT HOSPICE WITH [facility]. CHOICE SIGNED. JEOVANY ASSURED CM THAT IF PT GOES HOME, SHE HAS ASSISTANCE OF FAMILY AND SHELTER CAREGIVERS FOR 24 HOUR HOME CARE IF NEEDED. CM CALLED [facility], , SPOKE TO CYNTHIA AND PROVIDED REFERRAL INFORMATION. CM FAXED REFERRAL TO [facility] AT [phone]. CM WAITING [facility] EVALUATION FOR INPATIENT HOSPICE AND IF NOT QUALIFY FOR INPATIENT HOSPICE, POSSIBLY HOME HOSPICE ARRANGEMENTS. ROGER Luna DCP- Discharge Planning Updated by [id number]: Dylon Huertas on 08/05/19 10:[address] Patient Name: BEE GARNER Encounter No: [id number] : 1940 Primary Insurance: [facility] MEDICARE SOLUTIONS Anticipated DC Date: 08-05-2019 Planned Disposition: Home with Hospice External Planned Provider: [facility] DCP follow-up note: CM RECEIVED REQUEST FROM BEDSIDE NURSE TO SPEAK TO PT AND DAUGHTER IN LAW / POS IN ROOM REGARDING HOSPICE, SHE IS WANTING TO DISCHARGE TODAY WITH HOSPICE HOME CARE FOR PT AT HOME. CM MET WITH PT AND DAUGHTER IN LAW, JEOVANY RUSH, POWER OF RETAIL SECURITY PROFESSIONAL. SHE CONFIRMED PLAN. PT WAS IN HOSPICE WITH [facility] PRIOR TO HOSPITALIZATION. SHE DOES NOT WANT PT PLACED IN A CARE HOME AND WANTS PT TO GO TO HIS APARTMENT WITH HOSPICE HOME CARE, SHE WILL ARRANGE CAREGIVERS FOR PT. CHOICE SIGNED FOR HOSPICE HOME CARE. IMPORTANT MESSAGE FROM MEDICARE PROVIDED AND EXPLAINED. JEOVANY WOULD LIKE PT DISCHARGED HOME TODAY WITH HOSPICE. CM EXPLAINED THIS WILL DEPEND ON HOSPICE'S ABILITY TO ACCEPT AND MAKE ALL ARRANGEMENTS TODAY. CM CALLED [facility]OS[facility], , SPOKE TO KEELY, PROVIDED REFERRAL INFORMATION AND ASKED FOR DISCHARGE ARRANGEMENTS FOR TODAY PER FAMILY REQUEST. CM FAXED REFERRAL TO [facility]OS[facility] AT [phone]. CM RECEIVED CALL FROM LAINE TUTTLE OF HOSPICE HOME [facility] WHO REPORTS THEY WILL HAVE TO DISCUSS ACCEPTANCE OF PT WITH DR. DE LA TORRE OF HOSPICE HOME CARE AND IF THEY WILL ACCEPT, THEY HAVE TO HAVE A FACE TO FACE BEFORE ACCEPTANCE AND THEY ONLY PROVIDE CRISIS CARE FOR 5 DAYS, IT WILL BE UP TO FAMILY TO PROVIDE 24 HOUR CAREGIVERS. PT WAS ALREADY SET UP TO ENTER [facility] PRIOR TO THIS HOSPITAL ADMISSION AND HOSPICE BELIEVES THIS MAY BE BEST ADN WILL CALL PT'S POA AND DISCUSS HOSPICE CARE AND ARRANGEMENTS. LAINE DOES NOT THINK ALL ARRANGEMENTS WILL BE COMPLETED TODAY. CM WAITING [facility]OS[facility]ICE [facility] ADMISSION DETERMINATION AND HOME ARRANGEMENTS TO BE COMPLETED IF ACCEPTED. IF ACCEPTED, PT WILL TRANSPORT HOME VIA AMBULANCE. Dylon Huertas, CASE MANAGEMENT Appended by Dylon Huertas on 08/05/2019 11:19 CDT: DANIKA SPOKE TO CARE TEAM AT MULTIDISCIPLINARY TEAM MEETING, DR. JIMENEZ DIRECTED CM TO DISCUSS ADDITIONAL HOSPICE OPTIONS PT'S FAMILY. CM MET WITH PT AND BRANDINER IN LAW IN ROOM. PT'S DAUGHTER IN LAW WANTS TO WAIT AND REPORTS THAT SHE HAS FAMILY AND PERSONAL CARE PLANNED FOR 24 HOUR CARE AT PT'S APARTMENT AND WILL TALK WITH THE HOSPICE HOME CARE NURSE THIS MORNING BEFORE MAKING ANY FUTHER DECISIONS. DAUGHTER IN LAW/POA WILL NOTIFY CM OF HER DECISION AFTER MEETING WITH HOSPICE HOME CARE TODAY. BEDSIDE NURSE NOTIFIED. CM WAITING [facility]OS[facility]ICE [facility] ADMISSION DETERMINATION AND HOME ARRANGEMENTS TO BE COMPLETED IF ACCEPTED. IF ACCEPTED, PT WILL TRANSPORT HOME VIA AMBULANCE. Dylon Huertas, CASE MANAGEMENT DCP- Discharge Planning Updated by [id number]: Ivon Winters on 08/04/19 4:[address] 1630 CM notified that patient is to go back to hospice. CM attempted to call [facility] to find out if patient is to be admitted there. CM could not get anyone to answer the phone. Family would like for patient to be admitted back to [facility]. CM explained that [facility] doesn't have a contract with that Hospice Company. CM explained that the only company [facility] has a contract with is [facility]. Patient isn't taking any pain medications or anything for anxiety CM doesn't think that [facility] would find patient to be inpatient appropriate GIP. Family has decided to wait until am for Hospice. CM will check with [facility] in am about admission. The patient will be comfort care throughout the night then we will check on placement in am and readmission to hospice. CM will continue to follow and assist as needed with discharge planning / needs. Appended by Ivon Winters on 08/04/2019 17:36 CDT: 3210 Spoke with daughter Jeovany JUNE she stated he is not going to in that fpc. The plan at this time is for patient to discharge back to his apartment with Hospice and [facility] services around the clock care. Hospice is telling family that they will provide care around the clock for 5 days. CM will continue to follow and assist as needed with discharge planning / needs. DCP- Discharge Planning Updated by [id number]: Ivon Winters on 08/04/19 3:[address] Patient Name: BEE GARNER Admission Status: ER Accout number: [id number] Admission Date: 08-03-2019 : 1940 Admission Diagnosis: Attending: NIDIA JIMENEZ Current LOS: 1 Anticipated DC Date: Planned Disposition: Primary Insurance: [facility] MEDICARE SOLUTIONS Discharge Planning Comments: CM spoke with one of his care givers that was at bedside. Patient currently not responding. Oly is his animal caregiver from [facility]. Oly stated he has been at home with [facility] and [facility]. His Hospice was revoked yesterday when came into hospital. DANIKA called to confirm that Hospice was revoked. DANIKA called and spoke with Tooling Manager at [facility] and she stated that it had been revoked 08/03/19. They would gladly readmit once discharged if they patient desired. Jessie Cano -Realty Specialist [phone] with [facility] called and stated they have been working on getting patient placed at [facility]. Jessie stated that [facility] should have all the paperwork there to admit after discharge. CM will contine to follow and assist as needed with discharge planning / needs. Brush Clearer Surveying: Ivon Winters DCP- Discharge Planning Updated by [id number]: Cara Hall on 08/03/19 10:[address] CM contacted Shanice with [facility] to determine which hospice patient discharged home with, from their facility: [facility]. CM contacted [facility], Care #[phone] for patient's hospice diagnosis. Per Ping, patient was admitted to their service for COPD. Patient has a caregiver, Oumou, with [facility]. DCPIA - Discharge Planning Initial Assessment Updated by [id number]: Ivon Winters on 08/04/19 6:50 pm * Is the patient Alert and Oriented? No * Preadmission Environment Hospice * Facility Name [facility] * ADLs Partial Dependent * Partial ADLs (Assistance needed) Bathing Dressing * Other Equipment DME SUPPLIED BY HOSPICE * List name and contact numbers for known caregivers / representatives who currently or will assist patient after discharge: JEOVANY RUSH - SHAYLEE - [phone] CHRISTOPHER VILLAGRAN - JEFFERSON - [phone], * Verbal permission to speak to the caregivers and representatives has been obtained from the patient. N/A * Community resources currently utilized [facility] * Please name any agencies selected above. [facility] * Additional services required to return to the preadmission environment? No * Can the patient safely return to the preadmission environment? Yes * Has this patient been hospitalized within the prior 30 days at any hospital? No Coverage Notice Reviewer: [id number] Huertas Notice Issued Date-Time: 08/05/2019 7:45 Notice Type: IM Discharge Notice Notice Delivered To: Family Member Relationship to Patient: Daughter in Law Supervisor [employer] Name: JEOVANY RUSH Delivery Method: HAND - Hand Delivered Nohemi Days: Prior Verbal Notification: Recipient Understood Notice: Yes Recipient Signature: Yes Med Rec Note Co-signed by Attending: Coverage Notice Comment: Reviewer: MELITA Huertas Notice Issued Date-Time: 08/05/2019 7:45 Notice Type: Patient Choice Letter Notice Delivered To: Family Member Relationship to Patient: Daughter in Law Supervisor [employer] Name: JEOVANY RUSH Delivery Method: HAND - Hand Delivered Nohemi Days: Prior Verbal Notification: Recipient Understood Notice: Yes Recipient Signature: Yes Med Rec Note Co-signed by Attending: Coverage Notice Comment: [facility] Reviewer: [id number] Victor Hugo Huertas Notice Issued Date-Time: 08/05/2019 11:23 Notice Type: Patient Choice Letter Notice Delivered To: Family Member Relationship to Patient: Daughter in Law Supervisor [employer] Name: JEOVANY RUSH Delivery Method: HAND - Hand Delivered Nohemi Days: Prior Verbal Notification: Recipient Understood Notice: Yes Recipient Signature: Yes Med Rec Note Co-signed by Attending: Coverage Notice Comment: [facility] Last DP export: 08/05/19 11:15 a Patient Name: BEE GARNER Page [id number] at 1639 All edits/amendments must be made on the electronic document DICTATION DATE: 08/05/19 1638 MANAGER HOME HEALTHCARE: DULCE 08/05/19 1638 RPT#: [id number] DC DATE: STATUS: ADM IN [facility] [address] [place] [address] END OF REPORT
--- NOTE | 2019-08-05 16:48 | MORECARE ---
CASE MANAGEMENT DISCHARGE SUMMARY PATIENT: BEE GARNER UNIT: [id number] ADM DATE: 08/03/19 AGE: 79 : 40 SEX: M ROOM/BED: D.2113 AUTHOR: HAMMAD,DOC PHYSICIAN: REFERRING PHYSICIAN: NIDIA JIMENEZ MD DATE OF SERVICE: 08/05/19 Discharge Plan Patient Name: BEE GARNER Facility: [facility]:[place] : 1940 Planned Disposition: Home with Hospice Anticipated Discharge Date: 08/05/19 Discharge Date: Expected LOS: 2 Initial Reviewer: [id number] Initial Review Date: 08/04/2019 Generated: 08/05/19 5:47 pm Comments DCP- Discharge Planning Updated by [email or web address]: Dylon Huertas on 08/05/19 3:[address] Patient Name: BEE GARNER Encounter No: [id number] : 1940 Primary Insurance: [facility] MEDICARE SOLUTIONS Anticipated DC Date: 08-05-2019 Planned Disposition: HOSPICE MEDICAL FACILITY External Planned Provider: [facility] DCP follow-up note: CM SPOKE TO [facility], PT DOES NOT MEET GIP CRITERIA AND THEY COULD OFFER PLACEMENT OR HOME HOSPICE; HOME HOSPICE WOULD REQUIRE FAMILY TO HAVE 24 HOUR CARE FOR PT. CM CALLED AND SPOKE TO JEOVANY JUNE [phone], WHO ASKED THAT CM REFER PT TO [facility] FOR EVALUATION FOR INPATIENT HOSPICE THERE. EDUARDO COMPLETED. CM CALLED [facility], , SPOKE TO NIECY AND PROVIDED REFERRAL INFORMATION. CM FAXED REFERRAL TO [facility] AT [phone]. CM WAITING ADMISSION DETERMINATION FROM [facility]. ROGER Luna DCP- Discharge Planning Updated by [id number]: Dylon Huertas on 08/05/19 11:[address] Patient Name: BEE GARNER Encounter No: [id number] : 1940 Primary Insurance: [facility] MEDICARE SOLUTIONS Anticipated DC Date: 08-05-2019 Planned Disposition: Home with Hospice External Planned Provider: [facility] DCP follow-up note: CM SPOKE TO PT'S DAUGHTER IN LAW / POA, JEOVANY RUSH WHO REPORTS SPEAKING TO HOSPICE HOME CARE AND REQUESTS EVALUATION FOR INPATIENT HOSPICE WITH [facility]. CHOICE SIGNED. JEOVANY ASSURED CM THAT IF PT GOES HOME, SHE HAS ASSISTANCE OF FAMILY AND GROUP HOME CAREGIVERS FOR 24 HOUR HOME CARE IF NEEDED. CM CALLED [facility], , SPOKE TO CYNTHIA AND PROVIDED REFERRAL INFORMATION. CM FAXED REFERRAL TO [facility] AT [phone]. CM WAITING [facility] EVALUATION FOR INPATIENT HOSPICE AND IF NOT QUALIFY FOR INPATIENT HOSPICE, POSSIBLY HOME HOSPICE ARRANGEMENTS. Dylon Huertas, CASE MANAGEMENT DCP- Discharge Planning Updated by [id number]: Dylon Huertas on 08/05/19 10:[address] Patient Name: BEE GARNER Encounter No: [id number] : 1940 Primary Insurance: [facility] MEDICARE SOLUTIONS Anticipated DC Date: 08-05-2019 Planned Disposition: Home with Hospice External Planned Provider: [facility] DCP follow-up note: CM RECEIVED REQUEST FROM BEDSIDE NURSE TO SPEAK TO PT AND DAUGHTER IN LAW / POS IN ROOM REGARDING HOSPICE, SHE IS WANTING TO DISCHARGE TODAY WITH HOSPICE HOME CARE FOR PT AT HOME. DANIKA MET WITH PT AND DAUGHTER IN LAW, JEOVANY RUSH, POWER OF ADULT SPECIALIST. SHE CONFIRMED PLAN. PT WAS IN HOSPICE WITH HOSPICE HOME CARE PRIOR TO HOSPITALIZATION. SHE DOES NOT WANT PT PLACED IN A [facility] AND WANTS PT TO GO TO HIS APARTMENT WITH HOSPICE HOME CARE, SHE WILL ARRANGE CAREGIVERS FOR PT. CHOICE SIGNED FOR HOSPICE HOME CARE. IMPORTANT MESSAGE FROM MEDICARE PROVIDED AND EXPLAINED. JEOVANY WOULD LIKE PT DISCHARGED HOME TODAY WITH HOSPICE. DANIKA EXPLAINED THIS WILL DEPEND ON HOSPICE'S ABILITY TO ACCEPT AND MAKE ALL ARRANGEMENTS TODAY. CM CALLED [facility], , SPOKE TO KEELY, PROVIDED REFERRAL INFORMATION AND ASKED FOR DISCHARGE ARRANGEMENTS FOR TODAY PER FAMILY REQUEST. CM FAXED REFERRAL TO [facility] AT [phone]. CM RECEIVED CALL FROM LAINE TUTTLE OF HOSPICE HOME [facility] WHO REPORTS THEY WILL HAVE TO DISCUSS ACCEPTANCE OF PT WITH DR. DE LA TORRE OF HOSPICE HOME CARE AND IF THEY WILL ACCEPT, THEY HAVE TO HAVE A FACE TO FACE BEFORE ACCEPTANCE AND THEY ONLY PROVIDE CRISIS CARE FOR 5 DAYS, IT WILL BE UP TO FAMILY TO PROVIDE 24 HOUR CAREGIVERS. PT WAS ALREADY SET UP TO ENTER [facility] PRIOR TO THIS HOSPITAL ADMISSION AND HOSPICE BELIEVES THIS MAY BE BEST ADN WILL CALL PT'S POA AND DISCUSS HOSPICE CARE AND ARRANGEMENTS. LAINE DOES NOT THINK ALL ARRANGEMENTS WILL BE COMPLETED TODAY. CM WAITING [facility] ADMISSION DETERMINATION AND HOME ARRANGEMENTS TO BE COMPLETED IF ACCEPTED. IF ACCEPTED, PT WILL TRANSPORT HOME VIA AMBULANCE. Dylon Huertas, CASE MANAGEMENT Appended by Dylon Huertas on 08/05/2019 11:19 CDT: DANIKA SPOKE TO CARE TEAM AT MULTIDISCIPLINARY TEAM MEETING, DR. JIMENEZ DIRECTED CM TO DISCUSS ADDITIONAL HOSPICE OPTIONS PT'S FAMILY. CM MET WITH PT AND JARRETT IN LAW IN ROOM. PT'S DAUGHTER IN LAW WANTS TO WAIT AND REPORTS THAT SHE HAS FAMILY AND PERSONAL CARE PLANNED FOR 24 HOUR CARE AT PT'S APARTMENT AND WILL TALK WITH THE HOSPICE HOME CARE NURSE THIS MORNING BEFORE MAKING ANY FUTHER DECISIONS. DAUGHTER IN LAW/POA WILL NOTIFY CM OF HER DECISION AFTER MEETING WITH HOSPICE HOME [facility] TODAY. BEDSIDE NURSE NOTIFIED. CM WAITING [facility] ADMISSION DETERMINATION AND HOME ARRANGEMENTS TO BE COMPLETED IF ACCEPTED. IF ACCEPTED, PT WILL TRANSPORT HOME VIA AMBULANCE. Dylon Huertas, CASE MANAGEMENT DCP- Discharge Planning Updated by [id number]: Ivon Winters on 08/04/19 4:[address] 1630 CM notified that patient is to go back to hospice. CM attempted to call [facility] to find out if patient is to be admitted there. CM could not get anyone to answer the phone. Family would like for patient to be admitted [facility] to [facility]. DANIKA explained that [facility] doesn't have a contract with that Hospice Company. DANIKA explained that the only company [facility] has a contract with is [facility]. Patient isn't taking any pain medications or anything for anxiety CM doesn't think that [facility] would find patient to be inpatient appropriate GIP. Family has decided to wait until am for Hospice. CM will check with [facility] in am about admission. The patient will be comfort care throughout the night then we will check on placement in am and readmission to hospice. CM will continue to follow and assist as needed with discharge planning / needs. Appended by Ivon Winters on 08/04/2019 17:36 CDT: 2522 Spoke with daughter Jeovany [place] POA she stated he is not going to in that care home. The plan at this time is for patient to discharge back to his apartment with [facility]osp[facility] and [facility] around the clock care. Hospice is telling family that they will provide care around the clock for 5 days. CM will continue to follow and assist as needed with discharge planning / needs. DCP- Discharge Planning Updated by [id number]: Ivon Winters on 08/04/19 3:[address] Patient Name: BEE GARNER Admission Status: ER Accout number: [id number] Admission Date: 08-03-2019 : 1940 Admission Diagnosis: Attending: NIDIA JIMENEZ Current LOS: 1 Anticipated DC Date: Planned Disposition: Primary Insurance: [facility] MEDICARE SOLUTIONS Discharge Planning Comments: CM spoke with one of his care givers that was at bedside. Patient currently not responding. Oly is his hospice patient care secretary from [facility]. Oly stated he has been at home with [facility] and [facility]. His Hospice was revoked yesterday when came into hospital. CM called to confirm that Hospice was revoked. CM called and spoke with Mobile Home Set Up Person at [facility] and she stated that it had been revoked 08/03/19. They would gladly readmit once discharged if they patient desired. Jessie Cano -Avaya Engineer [phone] with [facility] called and stated they have been working on getting patient placed at [facility]. Jessie stated that [facility] should have all the paperwork there to admit after discharge. CM will contine to follow and assist as needed with discharge planning / needs. Global Human Resources Director: Ivon Winters DCP- Discharge Planning Updated by [id number]: Cara Hall on 08/03/19 10:[address] CM contacted Shanice [facility] to determine which hospice patient discharged home with, from their facility: [facility]. CM contacted [facility], Care #[phone] for patient's hospice diagnosis. Per Ping, patient was admitted to their service for COPD. Patient has a caregiver, Oumou, with [facility]. DCPIA - Discharge Planning Initial Assessment Updated by [id number]: Ivon Winters on 08/04/19 6:50 pm * Is the patient Alert and Oriented? No * Preadmission Environment Hospice * Facility Name [facility] * ADLs Partial Dependent * Partial ADLs (Assistance needed) Bathing Dressing * Other Equipment DME SUPPLIED BY HOSPICE * List name and contact numbers for known caregivers / representatives who currently or will assist patient after discharge: JEOVANY RUSH - POA - [phone] CHRISTOPHER VILLAGRAN - [place] - [phone], * Verbal permission to speak to the caregivers and representatives has been obtained from the patient. N/A * Community resources currently utilized [facility] * Please name any agencies selected above. [facility] * Additional services required to return to the preadmission environment? No * Can the patient safely return to the preadmission environment? Yes * Has this patient been hospitalized within the prior 30 days at any hospital? No External Providers External Provider: [facility] *(provides inpt [facility] Next Contact Date: 08/05/2019 Service Request Date: Service Type: Resolution: Reviewer: Comments: Coverage Notice Reviewer: [id number] Huertas Notice Issued Date-Time: 08/05/2019 7:45 Notice Type: IM Discharge Notice Notice Delivered To: Family Member Relationship to Patient: Daughter in Law Slot Editor Name: JEOVANY RUSH Delivery Method: HAND - Hand Delivered Nohemi Days: Prior Verbal Notification: Recipient Understood Notice: Yes Recipient Signature: Yes Med Rec Note Co-signed by Attending: Coverage Notice Comment: Reviewer: [id number] Huertas Notice Issued Date-Time: 08/05/2019 11:23 Notice Type: Patient Choice Letter Notice Delivered To: Family Member Relationship to Patient: Daughter in Law Slot Editor Name: JEOVANY RUSH Delivery Method: HAND - Hand Delivered Nohemi Days: Prior Verbal Notification: Recipient Understood Notice: Yes Recipient Signature: Yes Med Rec Note Co-signed by Attending: Coverage Notice Comment: [facility] Reviewer: [id number] Victor Hugo Huertas Notice Issued Date-Time: 08/05/2019 7:45 Notice Type: Patient Choice Letter Notice Delivered To: Family Member Relationship to Patient: Daughter in Law Slot Editor Name: JEOVANY RUSH Delivery Method: HAND - Hand Delivered Nohemi Days: Prior Verbal Notification: Recipient Understood Notice: Yes Recipient Signature: Yes Med Rec Note Co-signed by Attending: Coverage Notice Comment: [facility] Last DP export: 08/05/19 3:39 p Patient Name: BEE GARNER Page 19620 at 1648 All edits/amendments must be made on the electronic document DICTATION DATE: 08/05/191646 ADOPTION WORKER: DULCE 08/05/191646 RPT#: [id number] DC DATE: STATUS: ADM IN [facility] [address] [place] [address] END OF REPORT
--- NOTE | 2019-08-05 18:45 | NUR ---
PT AGGITATED AND STATES HE WANTS A CIGARETTE. ADVISED PT WE CAN GET HIM A NICOTINE PATCH. PAGED SHERRY LAI AND NEW ORDER RECIEVED TO START A NICOTINE PATCH.
--- NOTE | 2019-08-05 19:20 | NUR ---
REPORT RECEIVED, WILL CONTINUE POC. PATIENT IS A/OX3, VERY HARD OF HEARING. NO S/S OF DISTRESS OBSERVED, RR EVEN AND UNLABORED ON 8L O2 VIA NC. IV TO RT FOREARM IS SL, DRSG C/D/I. 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 PATIENT DENIES FURTHER CL IN REACH, BED LOCKED AND LOWERED. WILL CTM.
--- NOTE | 2019-08-06 06:42 | MORECARE ---
CASE MANAGEMENT DISCHARGE SUMMARY PATIENT: BEE GARNER UNIT: [id number] ADM DATE: 08/03/19 AGE: 79 : 40 SEX: M ROOM/BED: D.2113 AUTHOR: HAMMAD,DOC PHYSICIAN: REFERRING PHYSICIAN: NIDIA JIMENEZ MD DATE OF SERVICE: 08/06/19 Discharge Plan Patient Name: BEE GARNER Facility: [facility]:[place] : 1940 Planned Disposition: Home with Hospice Anticipated Discharge Date: 08/05/19 Discharge Date: Expected LOS: 2 Initial Reviewer: [id number] Initial Review Date: 08/04/2019 Generated: 08/06/19 7:42 am Comments DCP- Discharge Planning Updated by [id number]: Dylon Huertas on 08/05/19 3:[address] Patient Name: BEE GARNER Encounter No: [id number] : 1940 Primary Insurance: [facility] MEDICARE SOLUTIONS Anticipated DC Date: 08-05-2019 Planned Disposition: HOSPICE MEDICAL FACILITY External Planned Provider: [facility] DCP follow-up note: CM SPOKE TO [facility], PT DOES NOT MEET GIP CRITERIA AND THEY COULD OFFER PLACEMENT OR HOME HOSPICE; HOME HOSPICE WOULD REQUIRE FAMILY TO HAVE 24 HOUR CARE FOR PT. CM CALLED AND SPOKE TO JEOVANY JUNE [phone], WHO ASKED THAT CM REFER PT TO [facility] FOR EVALUATION FOR INPATIENT HOSPICE THERE. EDUARDO COMPLETED. CM CALLED [facility], , SPOKE TO NIECY AND PROVIDED REFERRAL INFORMATION. CM FAXED REFERRAL TO [facility] AT [phone]. CM WAITING ADMISSION DETERMINATION FROM [facility]. ROGER Luna DCP- Discharge Planning Updated by [id number]: Dylon Huertas on 08/05/19 11:[address] Patient Name: BEE GARNER Encounter No: [id number] : 1940 Primary Insurance: [facility] MEDICARE SOLUTIONS Anticipated DC Date: 08-05-2019 Planned Disposition: Home with Hospice External Planned Provider: [facility] DCP follow-up note: CM SPOKE TO PT'S DAUGHTER IN LAW / POA, JEOVANY RUSH WHO REPORTS SPEAKING TO HOSPICE HOME CARE AND REQUESTS EVALUATION FOR INPATIENT HOSPICE WITH [facility]. CHOICE SIGNED. JEOVANY ASSURED CM THAT IF PT GOES HOME, SHE HAS ASSISTANCE OF FAMILY AND ALF CAREGIVERS FOR 24 HOUR HOME CARE IF NEEDED. CM CALLED [facility], , SPOKE TO CYNTHIA AND PROVIDED REFERRAL INFORMATION. CM FAXED REFERRAL TO [facility] AT [phone]. CM WAITING [facility] EVALUATION FOR INPATIENT HOSPICE AND IF NOT QUALIFY FOR INPATIENT HOSPICE, POSSIBLY HOME HOSPICE ARRANGEMENTS. Dylon Huertas, CASE MANAGEMENT DCP- Discharge Planning Updated by [id number]: Dylon Huertas on 08/05/19 10:[address] Patient Name: BEE GARNER Encounter No: [id number] : 1940 Primary Insurance: [facility] MEDIC[employer] SOLUTIONS Anticipated DC Date: 08-05-2019 Planned Disposition: Home with Hospice External Planned Provider: [facility] DCP follow-up note: CM RECEIVED REQUEST FROM BEDSIDE NURSE TO SPEAK TO PT AND DAUGHTER IN LAW / POS IN ROOM REGARDING HOSPICE, SHE IS WANTING TO DISCHARGE TODAY WITH HOSPICE HOME CARE FOR PT AT HOME. DANIKA MET WITH PT AND DAUGHTER IN LAW, JEOVANY RUSH, POWER OF ELEMENTARY CLASSROOM TEACHER. SHE CONFIRMED PLAN. PT WAS IN HOSPICE WITH HOSPICE HOME CARE PRIOR TO HOSPITALIZATION. SHE DOES NOT WANT PT PLACED IN A DETENTION AND WANTS PT TO GO TO HIS APARTMENT WITH HOSPICE HOME CARE, SHE WILL ARRANGE CAREGIVERS FOR PT. CHOICE SIGNED FOR HOSPICE HOME CARE. IMPORTANT MESSAGE FROM MEDICARE PROVIDED AND EXPLAINED. JEOVANY WOULD LIKE PT DISCHARGED HOME TODAY WITH HOSPICE. DANIKA EXPLAINED THIS WILL DEPEND ON HOSPICE'S ABILITY TO ACCEPT AND MAKE ALL ARRANGEMENTS TODAY. CM CALLED [facility], , SPOKE TO KEELY, PROVIDED REFERRAL INFORMATION AND ASKED FOR DISCHARGE ARRANGEMENTS FOR TODAY PER FAMILY REQUEST. CM FAXED REFERRAL TO [facility]ICE [facility] AT [phone]. CM RECEIVED CALL FROM LAINE TUTTLE OF HOSPICE HOME CARE WHO REPORTS THEY WILL HAVE TO DISCUSS ACCEPTANCE OF PT WITH DR. DE LA TORRE OF HOSPICE HOME CARE AND IF THEY WILL ACCEPT, THEY HAVE TO HAVE A FACE TO FACE BEFORE ACCEPTANCE AND THEY ONLY PROVIDE CRISIS CARE FOR 5 DAYS, IT WILL BE UP TO FAMILY TO PROVIDE 24 HOUR CAREGIVERS. PT WAS ALREADY SET UP TO ENTER [facility] PRIOR TO THIS HOSPITAL ADMISSION AND HOSPICE BELIEVES THIS MAY BE BEST ADN WILL CALL PT'S POA AND DISCUSS HOSPICE CARE AND ARRANGEMENTS. LAINE DOES NOT THINK ALL ARRANGEMENTS WILL BE COMPLETED TODAY. CM WAITING HOS[facility]ICE [facility] ADMISSION DETERMINATION AND HOME ARRANGEMENTS TO BE COMPLETED IF ACCEPTED. IF ACCEPTED, PT WILL TRANSPORT HOME VIA AMBULANCE. Dylon Huertas, CASE MANAGEMENT Appended by Dylon Huertas on 08/05/2019 11:19 CDT: DANIKA SPOKE TO CARE TEAM AT MULTIDISCIPLINARY TEAM MEETING, DR. JIMENEZ DIRECTED CM TO DISCUSS ADDITIONAL HOSPICE OPTIONS PT'S FAMILY. CM MET WITH PT AND JARRETT IN LAW IN ROOM. PT'S DAUGHTER IN LAW WANTS TO WAIT AND REPORTS THAT SHE HAS FAMILY AND PERSONAL CARE PLANNED FOR 24 HOUR CARE AT PT'S APARTMENT AND WILL TALK WITH THE HOSPICE HOME CARE NURSE THIS MORNING BEFORE MAKING ANY FUTHER DECISIONS. DAUGHTER IN LAW/POA WILL NOTIFY CM OF HER DECISION AFTER MEETING WITH HOSPICE HOME CARE TODAY. BEDSIDE NURSE NOTIFIED. CM WAITING HOSPICE [facility] ADMISSION DETERMINATION AND HOME ARRANGEMENTS TO BE COMPLETED IF ACCEPTED. IF ACCEPTED, PT WILL TRANSPORT HOME VIA AMBULANCE. Dylon Huertas, CASE MANAGEMENT DCP- Discharge Planning Updated by [id number]: Ivon Winters on 08/04/19 4:[address] 1630 CM notified that patient is to go back to hospice. CM attempted to call [facility] to find out if patient is to be admitted there. CM could not get anyone to answer the phone. Family would like for patient to be [facility] to [facility]. DANIKA explained that [facility] doesn't have a contract with that Hospice Company. DANIKA explained that the only company [facility] has a contract with is [facility]. Patient isn't taking any pain medications or anything for anxiety CM doesn't think that [facility] would find patient to be inpatient appropriate GIP. Family has decided to wait until am for Hospice. CM will check with [facility] in am about admission. The patient will be comfort care throughout the night then we will check on placement in am and readmission to hospice. CM will continue to follow and assist as needed with discharge planning / needs. Appended by Ivon Winters on 08/04/2019 17:36 CDT: [id number] Spoke with daughter Jeovany [place] POA she stated he is not going to in that snf. The plan at this time is for patient to discharge back to his apartment with [facility] around the clock care. Hospice is telling family that they will provide care around the clock for 5 days. CM will continue to follow and assist as needed with discharge planning / needs. DCP- Discharge Planning Updated by [id number]: Ivon Winters on 08/04/19 3:[address] Patient Name: BEE GARNER Admission Status: ER Accout number: [id number] Admission Date: 08-03-2019 : 1940 Admission Diagnosis: Attending: NIDIA JIMENEZ Current LOS: 1 Anticipated DC Date: Planned Disposition: Primary Insurance: [facility] MEDICARE SOLUTIONS Discharge Planning Comments: CM spoke with one of his care givers that was at bedside. Patient currently not responding. Oly is his pet caregiver from [facility]. Oly stated he has been at home with [facility] and [facility]. His Hospice was revoked yesterday when came into hospital. CM called to confirm that Hospice was revoked. CM called and spoke with District Agent at [facility] and she stated that it had been revoked 08/03/19. They would gladly readmit once discharged if they patient desired. Jessie Cano -Lead Oracle Developer [phone] with [facility] called and stated they have been working on getting patient placed at [facility]. Jessie stated that [place] should have all the paperwork there to admit after discharge. CM will contine to follow and assist as needed with discharge planning / needs. Flight Paramedic: Ivon Winters DCP- Discharge Planning Updated by [id number]: Cara Hall on 08/03/19 10:[address] CM contacted Shanice mann [facility] to determine which hospice patient discharged home with, from their facility: [facility]. CM contacted [facility], Care #[phone] for patient's hospice diagnosis. Per Ping, patient was admitted to their service for COPD. Patient has a caregiver, Oumou, with [facility]. DCPIA - Discharge Planning Initial Assessment Updated by [id number]: Ivon Winters on 08/04/19 6:50 pm * Is the patient Alert and Oriented? No * Preadmission Environment Hospice * Facility Name [facility] * ADLs Partial Dependent * Partial ADLs (Assistance needed) Bathing Dressing * Other Equipment DME SUPPLIED BY HOSPICE * List name and contact numbers for known caregivers / representatives who currently or will assist patient after discharge: JEOVANY RUSH - SHAYLEE - [phone] CHRISTOPHER VILLAGRAN - ABERDEEN - [phone], * Verbal permission to speak to the caregivers and representatives has been obtained from the patient. N/A * Community resources currently utilized [facility] * Please name any agencies selected above. HOSPICE HOME C[facility] * Additional services required to return to the preadmission environment? No * Can the patient safely return to the preadmission environment? Yes * Has this patient been hospitalized within the prior 30 days at any hospital? No Coverage Notice Reviewer: MELITA Huertas Notice Issued Date-Time: 08/05/2019 7:45 Notice Type: IM Discharge Notice Notice Delivered To: Family Member Relationship to Patient: Daughter in Law Plate Shear Operator Name: JEOVANY RUSH Delivery Method: HAND - Hand Delivered Nohemi Days: Prior Verbal Notification: Recipient Understood Notice: Yes Recipient Signature: Yes Med Rec Note Co-signed by Attending: Coverage Notice Comment: Reviewer: MELITA Huertas Notice Issued Date-Time: 08/05/2019 7:45 Notice Type: Patient Choice Letter Notice Delivered To: Family Member Relationship to Patient: Daughter in Law Plate Shear Operator Name: JEOVANY RUSH Delivery Method: HAND - Hand Delivered Nohemi Days: Prior Verbal Notification: Recipient Understood Notice: Yes Recipient Signature: Yes Med Rec Note Co-signed by Attending: Coverage Notice Comment: [facility] Reviewer: MELITA Huertas Notice Issued Date-Time: 08/05/2019 11:23 Notice Type: Patient Choice Letter Notice Delivered To: Family Member Relationship to Patient: Daughter in Law Plate Shear Operator Name: JEOVANY RUSH Delivery Method: HAND - Hand Delivered Nohemi Days: Prior Verbal Notification: Recipient Understood Notice: Yes Recipient Signature: Yes Med Rec Note Co-signed by Attending: Coverage Notice Comment: [facility] Reviewer: [id number] Huertas Notice Issued Date-Time: 08/05/2019 16:42 Notice Type: Patient Choice Letter Notice Delivered To: Family Member Relationship to Patient: Daughter in Law Plate Shear Operator Name: JEOVANY RUSH Delivery Method: HAND - Hand Delivered Nohemi Days: Prior Verbal Notification: Recipient Understood Notice: Yes Recipient Signature: Yes Med Rec Note Co-signed by Attending: Coverage Notice Comment: [facility] DP export: 08/05/19 3:48 p Patient Name: BEE GARNER Page 60175 at 0642 All edits/amendments must be made on the electronic document DICTATION DATE: 08/06/19640 RN DERMATOLOGY: DULCE 08/06/19640 RPT#: [id number] DC DATE: STATUS: ADM IN [facility] [address] [place] [address] END OF REPORT
--- NOTE | 2019-08-06 09:25 | MORECARE ---
CASE MANAGEMENT DISCHARGE SUMMARY PATIENT: BEE GARNER UNIT: [id number] ADM DATE: 08/03/19 AGE: 79 : 40 SEX: M ROOM/BED: D.2113 AUTHOR: HAMMAD,DOC PHYSICIAN: REFERRING PHYSICIAN: NIDIA JIMENEZ MD DATE OF SERVICE: 08/06/19 Discharge Plan Patient Name: BEE GARNER Facility: [facility]:[place] : 1940 Planned Disposition: Home with Hospice Anticipated Discharge Date: 08/05/19 Discharge Date: Expected LOS: 2 Initial Reviewer: [id number] Initial Review Date: 08/04/2019 Generated: 08/06/19 10:25 am Comments DCP- Discharge Planning Updated by [id number]: Dylon Huertas on 08/06/19 8:[address] Patient Name: BEE GARNER Encounter No: [id number] : 1940 Primary Insurance: [employer] MEDICARE SOLUTIONS Anticipated DC Date: 08-05-2019 Planned Disposition: Home with Hospice External Planned Provider: [facility] DCP follow-up note: CM SPOKE TO [facility], SHE HAS OFFERED INPATIENT HOSPICE IN [place] OR FDC PLACEMENT WITH HOSPICE. FAMILY HAS MEETING AT 0900 THIS MORNING TO SPEAK TO [facility] REGARDING INPATIENT CARE THERE WITH HOSPICE. CM LATER INFORMED BY STUDENT NURSE THAT FAMILY PLANS TO SIGN LEGALS WITH [facility] AT 1000 AM THIS MORNING AND PT WILL TRANSPORT TO [facility] VIA AMBULANCE. CM WAITING ADMISSION DETERMINATION FROM [facility]. ROGER Luna DCP- Discharge Planning Updated by [id number]: Dylon Huertas on 08/05/19 3:[address] Patient Name: BEE GANRER Encounter No: [id number] : 1940 Primary Insurance: [facility] MEDICARE SOLUTIONS Anticipated DC Date: 08-05-2019 Planned Disposition: HOSPICE MEDICAL FACILITY External Planned Provider: [facility] DCP follow-up note: CM SPOKE TO CYNTHIA OF [facility], PT DOES NOT MEET GIP CRITERIA AND THEY COULD OFFER PLACEMENT OR HOME HOSPICE; HOME HOSPICE WOULD REQUIRE FAMILY TO HAVE 24 HOUR CARE FOR PT. CM CALLED AND SPOKE TO JEOVANY JUNE - [phone], WHO ASKED THAT CM REFER PT TO [facility] FOR EVALUATION FOR INPATIENT HOSPICE THERE. EDUARDO COMPLETED. CM CALLED [facility], , SPOKE TO NIECY AND PROVIDED REFERRAL INFORMATION. CM FAXED REFERRAL TO [facility] AT [phone]. CM WAITING ADMISSION DETERMINATION FROM [facility]. ROGER Luna MANAGEMENT DCP- Discharge Planning Updated by [id number]: Dylon Huertas on 08/05/19 11:[address] Patient Name: BEE DUNCANLAN Encounter No: [id number] : 1940 Primary Insurance: [facility] MEDICARE SOLUTIONS Anticipated DC Date: 08-05-2019 Planned Disposition: Home with Hospice External Planned Provider: [facility] DCP follow-up note: CM SPOKE TO PT'S DAUGHTER IN LAW / POA, JEOVANY RUSH WHO REPORTS SPEAKING TO HOSPICE HOME CARE AND REQUESTS EVALUATION FOR INPATIENT HOSPICE WITH [facility]. CHOICE SIGNED. JEOVANY ASSURED CM THAT IF PT GOES HOME, SHE HAS ASSISTANCE OF FAMILY AND SKILLED NURSING CAREGIVERS FOR 24 HOUR HOME CARE IF NEEDED. CM CALLED [facility], , SPOKE TO CYNTHIA AND PROVIDED REFERRAL INFORMATION. CM FAXED REFERRAL TO [facility] AT [phone]. CM WAITING [facility] EVALUATION FOR INPATIENT HOSPICE AND IF NOT QUALIFY FOR INPATIENT HOSPICE, POSSIBLY HOME HOSPICE ARRANGEMENTS. ROGER Luna DCP- Discharge Planning Updated by [id number]: Dylon Huertas on 08/05/19 10:[address] Patient Name: BEE DUNCANLAN Encounter No: [id number] : 1940 Primary Insurance: [facility] MEDICARE SOLUTIONS Anticipated DC Date: 08-05-2019 Planned Disposition: Home with Hospice External Planned Provider: [facility] DCP follow-up note: CM RECEIVED REQUEST FROM BEDSIDE NURSE TO SPEAK TO PT AND DAUGHTER IN LAW / POS IN ROOM REGARDING HOSPICE, SHE IS WANTING TO DISCHARGE TODAY WITH HOSPICE HOME CARE FOR PT AT HOME. CM MET WITH PT AND DAUGHTER IN LAW, JEOVANY RUSH, POWER OF BIOFUELS RESEARCH SCIENTIST. SHE CONFIRMED PLAN. PT WAS IN HOSPICE WITH HOSPICE HOME CARE PRIOR TO HOSPITALIZATION. SHE DOES NOT WANT PT PLACED IN A FDC AND WANTS PT TO GO TO HIS APARTMENT WITH HOSPICE HOME CARE, SHE WILL ARRANGE CAREGIVERS FOR PT. CHOICE SIGNED FOR HOSPICE HOME CARE. IMPORTANT MESSAGE FROM MEDICARE PROVIDED AND EXPLAINED. JEOVANY WOULD LIKE PT DISCHARGED HOME TODAY WITH HOSPICE. CM EXPLAINED THIS WILL DEPEND ON HOSPICE'S ABILITY TO ACCEPT AND MAKE ALL ARRANGEMENTS TODAY. CM CALLED [facility], , SPOKE TO KEELY, PROVIDED REFERRAL INFORMATION AND ASKED FOR DISCHARGE ARRANGEMENTS FOR TODAY PER FAMILY REQUEST. CM FAXED REFERRAL TO [facility] AT [phone]. CM RECEIVED CALL FROM LAINE TUTTLE OF HOSPICE HOME [facility] WHO REPORTS THEY WILL HAVE TO DISCUSS ACCEPTANCE OF PT WITH DR. DE LA TORRE OF HOSPICE HOME CARE AND IF THEY WILL ACCEPT, THEY HAVE TO HAVE A FACE TO FACE BEFORE ACCEPTANCE AND THEY ONLY PROVIDE CRISIS CARE FOR 5 DAYS, IT WILL BE UP TO FAMILY TO PROVIDE 24 HOUR CAREGIVERS. PT WAS ALREADY SET UP TO ENTER [facility] PRIOR TO THIS HOSPITAL ADMISSION AND HOSPICE BELIEVES THIS MAY BE BEST ADN WILL CALL PT'S POA AND DISCUSS HOSPICE CARE AND ARRANGEMENTS. LAINE DOES NOT THINK ALL ARRANGEMENTS WILL BE COMPLETED TODAY. CM WAITING [facility] ADMISSION DETERMINATION AND HOME ARRANGEMENTS TO BE COMPLETED IF ACCEPTED. IF ACCEPTED, PT WILL TRANSPORT HOME VIA AMBULANCE. Dylon Huertas, CASE MANAGEMENT Appended by Dylon Huertas on 08/05/2019 11:19 CDT: DANIKA SPOKE TO CARE TEAM AT MULTIDISCIPLINARY TEAM MEETING, DR. JIMENEZ DIRECTED CM TO DISCUSS ADDITIONAL HOSPICE OPTIONS PT'S FAMILY. CM MET WITH PT AND DAUGHER IN LAW IN ROOM. PT'S DAUGHTER IN LAW WANTS TO WAIT AND REPORTS THAT SHE HAS FAMILY AND PERSONAL CARE PLANNED FOR 24 HOUR CARE AT PT'S APARTMENT AND WILL TALK WITH THE HOSPICE HOME CARE NURSE THIS MORNING BEFORE MAKING ANY FUTHER DECISIONS. DAUGHTER IN LAW/POA WILL NOTIFY CM OF HER DECISION AFTER MEETING WITH HOSPICE HOME CARE TODAY. BEDSIDE NURSE NOTIFIED. CM WAITING H[facility]ICE [facility] ADMISSION DETERMINATION AND HOME ARRANGEMENTS TO BE COMPLETED IF ACCEPTED. IF ACCEPTED, PT WILL TRANSPORT HOME VIA AMBULANCE. ROGER Luna MANAGEMENT DCP- Discharge Planning Updated by [id number]: Ivon Winters on 08/04/19 4:[address] 1630 CM notified that patient is to go back to hospice. CM attempted to call [facility] to find out if patient is to be admitted there. CM could not get anyone to answer the phone. Family would like for patient to be [facility] to [facility]. CM explained that [facility] doesn't have a contract with that [facility]ospice Company. CM explained that the only company [facility] has a contract with is [facility]. Patient isn't taking any pain medications or anything for anxiety CM doesn't think that [facility] would find patient to be inpatient appropriate GIP. Family has decided to wait until am for Hospice. CM will check with [facility] in am about admission. The patient will be comfort care throughout the night then we will check on placement in am and readmission to hospice. CM will continue to follow and assist as needed with discharge planning / needs. Appended by Ivon Winters on 08/04/2019 17:36 CDT: 1730 Spoke with daughter Jeovany JUNE she stated he is not going to in that usp. The plan at this time is for patient to discharge back to his apartment with [facility] services around the clock care. Hospice is telling family that they will provide care around the clock for 5 days. CM will continue to follow and assist as needed with discharge planning / needs. DCP- Discharge Planning Updated by [id number]: Ivon Winters on 08/04/19 3:[address] Patient Name: BEE GARNER Admission Status: ER Accout number: [id number] Admission Date: 08-03-2019 : 1940 Admission Diagnosis: Attending: NIDIA JIMENEZ Current LOS: 1 Anticipated DC Date: Planned Disposition: Primary Insurance: [employer] MED[employer]ARE SOLUTIONS Discharge Planning Comments: CM spoke with one of his care givers that was at bedside. Patient currently not responding. Oly is his career law clerk from [facility]. Oly stated he has been at home with [facility] and [facility]. His Hospice was revoked yesterday when came into hospital. CM called to confirm that Hospice was revoked. CM called and spoke with Hearing Therapy Director at [facility] and she stated that it had been revoked 08/03/19. They would gladly readmit once discharged if they patient desired. Jessie Cano -Printer Assistant [phone] with [facility] called and stated they have been working on getting patient placed at [facility]. Jessie stated that [place] should have all the paperwork there to admit after discharge. CM will contine to follow and assist as needed with discharge planning / needs. Design Tech: Ivon Winters DCP- Discharge Planning Updated by [id number]: Cara Hall on 08/03/19 10:[address] CM contacted Shanice johnathan [facility] to determine which hospice patient discharged home with, from their facility[facility]. CM contacted [facility], Care #[phone] for patient's hospice diagnosis. Per Ping, patient was admitted to their service for COPD. Patient has a caregiver, Oumou, with [facility]. DCPIA - Discharge Planning Initial Assessment Updated by [id number]: Ivon Winters on 08/04/19 6:50 pm * Is the patient Alert and Oriented? No * Preadmission Environment Hospice * Facility Name [facility] * ADLs Partial Dependent * Partial ADLs (Assistance needed) Bathing Dressing * Other Equipment DME SUPPLIED BY HOSPICE * List name and contact numbers for known caregivers / representatives who currently or will assist patient after discharge: JEOVANY RUSH - SHAYLEE - [phone] CHRISTOPHER VILLAGRAN - [place] - [phone], * Verbal permission to speak to the caregivers and representatives has been obtained from the patient. N/A * Community resources currently utilized [facility] * Please name any agencies selected above. HOSPICE HOME CARE * Additional services required to return to the preadmission environment? No * Can the patient safely return to the preadmission environment? Yes * Has this patient been hospitalized within the prior 30 days at any hospital? No Coverage Notice Reviewer: [id number] Victor Hugo Huertas Notice Issued Date-Time: 08/05/2019 7:45 Notice Type: IM Discharge Notice Notice Delivered To: Family Member Relationship to Patient: Daughter in Law Deoiling Machine Operator Name: JEOVANY RUSH Delivery Method: HAND - Hand Delivered Nohemi Days: Prior Verbal Notification: Recipient Understood Notice: Yes Recipient Signature: Yes Med Rec Note Co-signed by Attending: Coverage Notice Comment: Reviewer: [id number] Huertas Notice Issued Date-Time: 08/05/2019 7:45 Notice Type: Patient Choice Letter Notice Delivered To: Family Member Relationship to Patient: Daughter in Law Deoiling Machine Operator Name: JEOVANY RUSH Delivery Method: HAND - Hand Delivered Nohemi Days: Prior Verbal Notification: Recipient Understood Notice: Yes Recipient Signature: Yes Med Rec Note Co-signed by Attending: Coverage Notice Comment: [facility] Reviewer: [id number] Victor Hugo Huertas Notice Issued Date-Time: 08/05/2019 11:23 Notice Type: Patient Choice Letter Notice Delivered To: Family Member Relationship to Patient: Daughter in Law Deoiling Machine Operator Name: JEOVANY RUSH Delivery Method: HAND - Hand Delivered Nohemi Days: Prior Verbal Notification: Recipient Understood Notice: Yes Recipient Signature: Yes Med Rec Note Co-signed by Attending: Coverage Notice Comment: [facility] Reviewer: [id number] Victor Hugo Huertas Notice Issued Date-Time: 08/05/2019 16:42 Notice Type: Patient Choice Letter Notice Delivered To: Family Member Relationship to Patient: Daughter in Law Deoiling Machine Operator Name: JEOVANY RUSH Delivery Method: HAND - Hand Delivered Nohemi Days: Prior Verbal Notification: Recipient Understood Notice: Yes Recipient Signature: Yes Med Rec Note Co-signed by Attending: Coverage Notice Comment: [facility] Last DP export: 08/06/19 5:42 Patient Name: BEE GARNER Page 09609 at 0925 All edits/amendments must be made on the electronic document DICTATION DATE: 08/06/19924 SENIOR MANAGER CREATIVE SERVICES: DULCE 08/06/19924 RPT#: [id number] DC DATE: STATUS: ADM IN [facility] [address] [place] [address] END OF REPORT
--- NOTE | 2019-08-06 11:43 | NUR ---
PATIENT WILL BE GOING TO [facility]. ALL THE PAPERWORK IS FINAL. IS ABOUT TO DISCHARGE PATIENT. THEN HE WILL BE TRANSPORTED.
--- NOTE | 2019-08-06 11:43 | MORECARE ---
CASE MANAGEMENT DISCHARGE SUMMARY PATIENT: BEE GARNER UNIT: [id number] ADM DATE: 08/03/19 AGE: 79 : 40 SEX: M ROOM/BED: D.2113 AUTHOR: HAMMAD,DOC PHYSICIAN: REFERRING PHYSICIAN: NIDIA JIMENEZ MD DATE OF SERVICE: 08/06/19 Discharge Plan Patient Name: BEE GARNER Facility: [facility]:[place] : 1940 Planned Disposition: Home with Hospice Anticipated Discharge Date: 08/06/19 Discharge Date: Expected LOS: 3 Initial Reviewer: [id number] Initial Review Date: 08/04/2019 Generated: 08/06/19 12:43 pm Comments DCP- Discharge Planning Updated by [id number]: Denisse Gann on 08/06/19 10:[address] Patient Name: BEE GARNER Encounter No: [id number] : 1940 Primary Insurance: [facility] MEDICARE SOLUTIONS Anticipated DC Date: 08-06-2019 Planned Disposition: Home with Hospice External Planned Provider: [facility], INPATIENT [place] DCP follow-up note: CM SPOKE TO BEDSIDE NURSE WHO INFORMED CM THAT FAMILY SIGNED LEGALS WITH [facility], PT HAS BEEN ACCEPTED TO [facility] IN [place]. PT ACCEPTED BY DR. KHAN OF [facility], TO ADMIT TO [facility] ROOM 558, NURSE REPORT TO BE CALLED TO KEYA AT [phone]. PT TO TRANSPORT VIA AMBULANCE. DENISSE GANN, CASE MANAGEMENT Denisse Gann DCP- Discharge Planning Updated by [id number]: Denisse Gann on 08/06/19 8:[address] Patient Name: BEE GARNER Encounter No: [id number] : 1940 Primary Insurance: [facility] MEDICARE SOLUTIONS Anticipated DC Date: 08-05-2019 Planned Disposition: Home with Hospice External Planned Provider: [facility] DCP follow-up note: CM SPOKE TO LAINE OF HOSPICE HOME CARE, SHE HAS OFFERED INPATIENT HOSPICE IN [place] OR GROUP HOME PLACEMENT WITH HOSPICE. FAMILY HAS MEETING AT 0900 THIS MORNING TO SPEAK TO [facility] REGARDING INPATIENT CARE THERE WITH HOSPICE. CM LATER INFORMED BY STUDENT NURSE THAT FAMILY PLANS TO SIGN LEGALS WITH [facility] AT 1000 AM THIS MORNING AND PT WILL TRANSPORT TO [facility] VIA AMBULANCE. CM WAITING ADMISSION DETERMINATION FROM [facility]. ROGER Luna DCP- Discharge Planning Updated by [id number]: Denisse Gann on 08/05/19 3:[address] Patient Name: BEE DUNCANLAN Encounter No: [id number] : 1940 Primary Insurance: [facility] MEDICARE SOLUTIONS Anticipated DC Date: 08-05-2019 Planned Disposition: HOSPICE MEDICAL FACILITY External Planned Provider: [facility] DCP follow-up note: CM SPOKE TO CYNTHIA OF [facility], PT DOES NOT MEET GIP CRITERIA AND THEY COULD OFFER PLACEMENT OR HOME HOSPICE; HOME HOSPICE WOULD REQUIRE FAMILY TO HAVE 24 HOUR CARE FOR PT. CM CALLED AND SPOKE TO JEOVANY VICTOR MANUEL - SHAYLEE - [phone], WHO ASKED THAT CM REFER PT TO [facility] FOR EVALUATION FOR INPATIENT HOSPICE THERE. FRANCISCOE COMPLETED. CM CALLED [facility], , SPOKE TO NIECY AND PROVIDED REFERRAL INFORMATION. CM FAXED REFERRAL TO [facility] AT [phone]. CM WAITING ADMISSION DETERMINATION FROM [facility]. ROGER Luna DCP- Discharge Planning Updated by [id number]: Denisse Gann on 08/05/19 11:[address] Patient Name: BEE GARNER Encounter No: [id number] : 1940 Primary Insurance: [facility] MEDICARE SOLUTIONS Anticipated DC Date: 08-05-2019 Planned Disposition: Home with Hospice External Planned Provider: [facility] DCP follow-up note: CM SPOKE TO PT'S DAUGHTER IN LAW / POA, JEOVANY RUSH WHO REPORTS SPEAKING TO HOSPICE HOME CARE AND REQUESTS EVALUATION FOR INPATIENT HOSPICE WITH [facility]. CHOICE SIGNED. JEOVANY ASSURED CM THAT IF PT GOES HOME, SHE HAS ASSISTANCE OF FAMILY AND [facility] CAREGIVERS FOR 24 HOUR HOME CARE IF NEEDED. CM CALLED [facility], , SPOKE TO CYNTHIA AND PROVIDED REFERRAL INFORMATION. CM FAXED REFERRAL TO [facility] AT [phone]. CM WAITING [facility] EVALUATION FOR INPATIENT HOSPICE AND IF NOT QUALIFY FOR INPATIENT HOSPICE, POSSIBLY HOME HOSPICE ARRANGEMENTS. Denisse Gann CASE MANAGEMENT DCP- Discharge Planning Updated by [id number]: Denisse Gann on 08/05/19 10:[address] Patient Name: BEE GARNER Encounter No: [id number] : 1940 Primary Insurance: [facility] MEDICARE SOLUTIONS Anticipated DC Date: 08-05-2019 Planned Disposition: Home with Hospice External Planned Provider: [facility] HOME [facility] DCP follow-up note: CM RECEIVED REQUEST FROM BEDSIDE NURSE TO SPEAK TO PT AND DAUGHTER IN LAW / POS IN ROOM REGARDING HOSPICE, SHE IS WANTING TO DISCHARGE TODAY WITH HOSPICE HOME CARE FOR PT AT HOME. CM MET WITH PT AND DAUGHTER IN LAW, JEOVANY RUSH, POWER OF LOG CUTTER. SHE CONFIRMED PLAN. PT WAS IN HOSPICE WITH HOSPICE HOME C[facility] PRIOR TO HOSPITALIZATION. SHE DOES NOT WANT PT PLACED IN A GROUP HOME AND WANTS PT TO GO TO HIS APARTMENT WITH HOSPICE HOME CARE, SHE WILL ARRANGE CAREGIVERS FOR PT. CHOICE SIGNED FOR HOSPICE HOME CARE. IMPORTANT MESSAGE FROM MEDICARE PROVIDED AND EXPLAINED. JEOVANY WOULD LIKE PT DISCHARGED HOME TODAY WITH HOSPICE. CM EXPLAINED THIS WILL DEPEND ON HOSPICE'S ABILITY TO ACCEPT AND MAKE ALL ARRANGEMENTS TODAY. CM CALLED [facility], , SPOKE TO KEELY, PROVIDED REFERRAL INFORMATION AND ASKED FOR DISCHARGE ARRANGEMENTS FOR TODAY PER FAMILY REQUEST. CM FAXED REFERRAL TO [facility] AT [phone]. CM RECEIVED CALL FROM LAINE TUTTLE OF HOSPICE HOME [facility] WHO REPORTS THEY WILL HAVE TO DISCUSS ACCEPTANCE OF PT WITH DR. DE LA TORRE OF HOSPICE HOME [facility] AND IF THEY WILL ACCEPT, THEY HAVE TO HAVE A FACE TO FACE BEFORE ACCEPTANCE AND THEY ONLY PROVIDE CRISIS CARE FOR 5 DAYS, IT WILL BE UP TO FAMILY TO PROVIDE 24 HOUR CAREGIVERS. PT WAS ALREADY SET UP TO ENTER [facility] PRIOR TO THIS HOSPITAL ADMISSION AND HOSPICE BELIEVES THIS MAY BE BEST ADN WILL CALL PT'S POA AND DISCUSS HOSPICE CARE AND ARRANGEMENTS. LAINE DOES NOT THINK ALL ARRANGEMENTS WILL BE COMPLETED TODAY. CM WAITING [facility] ADMISSION DETERMINATION AND HOME ARRANGEMENTS TO BE COMPLETED IF ACCEPTED. IF ACCEPTED, PT WILL TRANSPORT HOME VIA AMBULANCE. Denisse Gann, CASE MANAGEMENT Appended by Denisse Gann on 08/05/2019 11:19 CDT: DANIKA SPOKE TO CARE TEAM AT MULTIDISCIPLINARY TEAM MEETING, DR. JIMENEZ DIRECTED CM TO DISCUSS ADDITIONAL HOSPICE OPTIONS PT'S FAMILY. DANIKA MET WITH PT AND DAUGHER IN LAW IN ROOM. PT'S DAUGHTER IN LAW WANTS TO WAIT AND REPORTS THAT SHE HAS FAMILY AND PERSONAL CARE PLANNED FOR 24 HOUR CARE AT PT'S APARTMENT AND WILL TALK WITH THE HOSPICE HOME CARE NURSE THIS MORNING BEFORE MAKING ANY FUTHER DECISIONS. DAUGHTER IN LAW/POA WILL NOTIFY CM OF HER DECISION AFTER MEETING WITH HOSPICE HOME C[facility] TODAY. BEDSIDE NURSE NOTIFIED. CM WAITING [facility] ADMISSION DETERMINATION AND HOME ARRANGEMENTS TO BE COMPLETED IF ACCEPTED. IF ACCEPTED, PT WILL TRANSPORT HOME VIA AMBULANCE. Denisse Gann, CASE MANAGEMENT DCP- Discharge Planning Updated by [id number]: Ivon Winters on 08/04/19 4:[address] 1630 CM notified that patient is to go back to hospice. CM attempted to call [facility] to find out if patient is to be admitted there. CM could not get anyone to answer the phone. Family would like for patient to be [facility]. CM explained that [facility] doesn't have a contract with that Hospice Company. CM explained that the only company [facility] has a contract with is [facility]. Patient isn't taking any pain medications or anything for anxiety CM doesn't think that [facility] would find patient to be inpatient appropriate GIP. Family has decided to wait until am for Hospice. CM will check with [facility] in am about admission. The patient will be comfort care throughout the night then we will check on placement in am and readmission to hospice. CM will continue to follow and assist as needed with discharge planning / needs. Appended by Ivon Winters on 08/04/2019 17:36 CDT: 1730 Spoke with daughter Jeovany France POA she stated he is not going to in that long-term. The plan at this time is for patient to discharge back to his apartment with Hospice and [facility] services around the clock care. Hospice is telling family that they will provide care around the clock for 5 days. CM will continue to follow and assist as needed with discharge planning / needs. DCP- Discharge Planning Updated by [id number]: Ivon Winters on 08/04/19 3:[address] Patient Name: BEE GARNER Admission Status: ER Accout number: [id number] Admission Date: 08-03-2019 : 1940 Admission Diagnosis: Attending: NIDIA JIMENEZ Current LOS: 1 Anticipated DC Date: Planned Disposition: Primary Insurance: [facility] MEDICARE SOLUTIONS Discharge Planning Comments: CM spoke with one of his care givers that was at bedside. Patient currently not responding. Oly is his nurse behavioral health care from [facility]. Oly stated he has been at home with [facility]. His Hospice was revoked yesterday when came into hospital. CM called to confirm that Hospice was revoked. CM called and spoke with Vending Machine Operator at [facility] and she stated that it had been revoked 08/03/19. They would gladly readmit once discharged if they patient desired. Jessie Cano -Rustic Terrazzo Setter [phone] with [facility] called and stated they have been working on getting patient placed at [facility]. Jessie stated that [facility] should have all the paperwork there to admit after discharge. CM will contine to follow and assist as needed with discharge planning / needs. Pastry Wrapper: Ivon Winters DCP- Discharge Planning Updated by [id number]: Cara Hall on 08/03/19 10:[address] CM contacted Shanice with [facility] to determine which hospice patient discharged home with, from their facility: [facility]. CM contacted [facility], Care #[phone] for patient's hospice diagnosis. Per Ping, patient was admitted to their service for COPD. Patient has a caregiver, Oumou, with [facility]. DCPIA - Discharge Planning Initial Assessment Updated by [id number]: Ivon Winters on 08/04/19 6:50 pm * Is the patient Alert and Oriented? No * Preadmission Environment Hospice * Facility Name [facility] * ADLs Partial Dependent * Partial ADLs (Assistance needed) Bathing Dressing * Other Equipment DME SUPPLIED BY HOSPICE * List name and contact numbers for known caregivers / representatives who currently or will assist patient after discharge: JEOVANY RUSH - POA - [phone] CHRISTOPHER VILLAGRAN - FRIEND - [phone], * Verbal permission to speak to the caregivers and representatives has been obtained from the patient. N/A * Community resources currently utilized [facility] * Please name any agencies selected above. [facility] * Additional services required to return to the preadmission environment? No * Can the patient safely return to the preadmission environment? Yes * Has this patient been hospitalized within the prior 30 days at any hospital? No Coverage Notice Reviewer: MELITA Gann Notice Issued Date-Time: 08/05/2019 7:45 Notice Type: IM Discharge Notice Notice Delivered To: Family Member Relationship to Patient: Daughter in Law Wood Processing Worker Name: JEOVANY RUSH Delivery Method: HAND - Hand Delivered Nohemi Days: Prior Verbal Notification: Recipient Understood Notice: Yes Recipient Signature: Yes Med Rec Note Co-signed by Attending: Coverage Notice Comment: Reviewer: MELITA Gann Notice Issued Date-Time: 08/05/2019 7:45 Notice Type: Patient Choice Letter Notice Delivered To: Family Member Relationship to Patient: Daughter in Law Wood Processing Worker Name: JEOVANY RUSH Delivery Method: HAND - Hand Delivered Nohemi Days: Prior Verbal Notification: Recipient Understood Notice: Yes Recipient Signature: Yes Med Rec Note Co-signed by Attending: Coverage Notice Comment: [facility] Reviewer: MELITA Gann Notice Issued Date-Time: 08/05/2019 11:23 Notice Type: Patient Choice Letter Notice Delivered To: Family Member Relationship to Patient: Daughter in Law Wood Processing Worker Name: JEOVANY RUSH Delivery Method: HAND - Hand Delivered Nohemi Days: Prior Verbal Notification: Recipient Understood Notice: Yes Recipient Signature: Yes Med Rec Note Co-signed by Attending: Coverage Notice Comment: [facility] Reviewer: MELITA Gann Notice Issued Date-Time: 08/05/2019 16:42 Notice Type: Patient Choice Letter Notice Delivered To: Family Member Relationship to Patient: Daughter in Law Wood Processing Worker Name: JEOVANY RUSH Delivery Method: HAND - Hand Delivered Nohemi Days: Prior Verbal Notification: Recipient Understood Notice: Yes Recipient Signature: Yes Med Rec Note Co-signed by Attending: Coverage Notice Comment: [facility] Last DP export: 08/06/19 8:25 Patient Name: BEE GARNER Page [id number] at 1143 All edits/amendments must be made on the electronic document DICTATION DATE: 08/06/19 1143 DESIGN DRAFTER CHIEF: DULCE 08/06/19 1143 RPT#: [id number] DC DATE: STATUS: ADM IN [facility] [address] [place] [address] END OF REPORT
--- NOTE | 2019-08-06 13:17 | NUR ---
CALLED [facility], THEY WILL BE TRANSFERING THE PATIENT TO [facility].
--- NOTE | 2019-08-06 14:31 | NUR ---
PATIENT HAS BEEN PREPARED FOR DISCHARGE. ALL PAPERS HAVE BEEN SIGNED. REPORT CALLED TO RECIEVING NURSE. WILL GIVE NORCO TO PATIENT FOR PAIN. HIS BLOOD PRESSURE RUNS LOW ALL THE TIME. FAMILY AND MARKETING COMMUNICATIONS MANAGER CONFIRM THAT HE DOES GET PAIN MEDICATION WITH A LOW BLOOD PRESSURE AND THEY WANT HIM TO HAVE A NORCO BEFORE [facility] TRANSPORTS HIM. IV WILL BE LEFT IN PLACE. ALL PATIENT BELONGINGS HAVE BEEN REMOVED FROM THE ROOM. HE IS READY TO TRANSPORT.
--- NOTE | 2019-08-06 14:58 | NUR ---
GAVE THE NORCO FOR PAIN DURING TRANSPORT. CALLED HOSPICE NURSE AND SHE AGREED IT WOULD BE FINE. FAMILY AT BEDSIDE AGREED THAT IT WOULD BE FINE WELL. PATIENT IS BEING TRANSPORTED TO [facility].
== END 2019-08-06 15:49 | disposition home health service (06) | DRG 871 ==
LOC: D.ER 10:05 → D.CVICU 12:34 → D.MS 12:34 → D.M2 12:34 → D.CVICU 08-04 11:30 → D.M2 08-04 17:48
PROVIDERS: Emergency Medicine; ADMIT Internal Medicine Nephrology; ATTEND Internal Medicine Nephrology
DX: A41.9 Sepsis, unspecified organism (principal); J96.21 Acute and chronic respiratory failure with hypoxia; G93.41 Metabolic encephalopathy; I50.21 Acute systolic (congestive) heart failure; J15.6 Pneumonia due to other Gram-negative bacteria; N17.9 Acute kidney failure, unspecified; F17.213 Nicotine dependence, cigarettes, with withdrawal; K92.2 Gastrointestinal hemorrhage, unspecified; E11.22 Type 2 diabetes mellitus with diabetic chronic kidney disease; N18.9 Chronic kidney disease, unspecified; E87.5 Hyperkalemia; D50.9 Iron deficiency anemia, unspecified; J43.9 Emphysema, unspecified; I48.91 Unspecified atrial fibrillation; Z51.5 Encounter for palliative care; Z89.512 Acquired absence of left leg below knee